=== PATIENT | male | born 1985 | race Caucasian/White ===

== ENCOUNTER 2019-02-13 16:45 | Emergency (ER) | payer MEDICAID ==
[~2019-02-13] VITALS: Ht 177.8 cm; Wt 90.7 kg
[~2019-02-13 16:45] MED LIST: ACHD5005 PO; AGM875T PO; AMOX-358 PO; AMOX500C2 PO; AZIT250T12 PO; CARB300C2; DEPAKOTE; FLUT9.9S NS; HALDOL; HYDR-4226 PO; HYDR-707 PO; IBUP800T26 PO; LITH300C; LOXA10CA PO; LOXA25CA2 PO; METF500T8 PO; NAPR-243 PO; PARO20TA57; QUET150T; SIMV10TA3 PO; [UNRECOGNIZED DRUG - REMARK]; [UNRECOGNIZED DRUG - REMARK]
--- NOTE | 2019-02-13 16:45 | NUR ---
AMB TO ROOM ACCOMPIED BY EMS AND PPD. PLACED IN ROOM 8 PLACED IN GOWN AND BELONGINGS PLACED IN BAG AND BEHINDE LOCKED DOOR.
--- NOTE | 2019-02-13 16:54 | ED General ---
General Stated Complaint: SUICIDAL Source of Information: Patient Exam Limitations: No Limitations History of Present Illness Date Seen by Provider: Feb 13, 2019 Time Seen by Provider: 16:51 Initial Comments To ER by EMS from home with reports of suicidal ideation. Patient states that over the past few months he's been pushing away the one person who means the world to him. Last night he pushed it too far he states and hurt her emotionally. He states he thought he should remedy this by taking himself out of the equation. He states he had just refilled all of his medications and planned that he would take all of them at once. However his stepdaughter walked into the room before he did that and call the police. He states he did not take any extra medications. He has been inpatient for suicidal ideations and attempt in the past. Reports a past psychiatric history of depression and anxiety bipolar dissociative identity disorder and paranoid schizophrenia. He states he feels like he needs to go inpatient because outpatient therapy is not working. Timing/Duration: 1-2 Days Severity: Moderate Allergies and Home Medications Allergies Coded Allergies: No Known Drug Allergies (Unverified , 12/19/08) Home Medications Metformin HCl 500 Mg Tab.er.24h, 500 MG PO BID, (Reported) Simvastatin 10 Mg Tablet, 10 MG PO HS, (Reported) Patient Home Medication List Home Medication List Reviewed: Yes Review of Systems Review of Systems Constitutional: see HPI EENTM: see HPI Respiratory: no symptoms reported Cardiovascular: no symptoms reported Genitourinary: no symptoms reported Musculoskeletal: no symptoms reported Skin: no symptoms reported Psychiatric/Neurological: See HPI, Depressed, Emotional Problems Hematologic/Lymphatic: No Symptoms Reported Immunological/Allergic: no symptoms reported Past Vnfkvfw-Xfhhsp-Ziolgw Hx Patient Social History Recent Foreign Travel: No Contact w/Someone Who Travel: No Recent Hopitalizations: No Seasonal Allergies Seasonal Allergies: No Past Medical History Appendectomy, Orthopedic Asthma Currently Using CPAP: No Currently Using BIPAP: No Stroke Reproductive Disorders: No Bipolar, Personality Disorder, Schizophrenia Adverse Reaction/Blood Tranf: No Physical Exam Vital Signs Vital Signs - First Documented 02/13/19 16:45 Temp 97.6 Pulse 84 Resp 16 B/P (MAP) 136/89 (105) Pulse Ox 95 O2 Delivery Room Air Capillary Refill : Height, Weight, BMI Height: 5'10" Weight: 332lbs. oz. [id number]; BMI Method:Stated General Appearance: No Apparent Distress, WD/WN, Other (clean, cooperative, alert. Pleasant) HEENT: PERRL/EOMI, TMs Normal, Normal ENT Inspection, Pharynx Normal Respiratory: Normal Breath Sounds, No Accessory Muscle Use, No Respiratory Distress Gastrointestinal: Normal Bowel Sounds, Non Tender, Soft Extremity: Normal Capillary Refill, Normal Inspection Neurologic/Psychiatric: Alert, Oriented x3, No Motor/Sensory Deficits Skin: Normal Color, Warm/Dry Progress/Results/Core Measures Suspected Sepsis SIRS Temperature: Pulse: Respiratory Rate: Laboratory Tests 02/13/19 17:34: White Blood Count 10.6 Blood Pressure / Mean: Laboratory Tests 02/13/19 17:34: Creatinine 0.98, Platelet Count 191, Total Bilirubin 0.5 Results/Orders Lab Results Laboratory Tests Test 02/13/19 17:19 02/13/19 17:34 Range/Units Urine Color YELLOW Urine Clarity CLEAR Urine pH 5 5-9 Urine Specific [place] 1.030 H 1.016-1.022 Urine Protein 2+ H NEGATIVE Urine Glucose (UA) NEGATIVE NEGATIVE Urine Ketones 1+ H NEGATIVE Urine Nitrite NEGATIVE NEGATIVE Urine Bilirubin 1+ H NEGATIVE Urine Urobilinogen 1 NORMAL MG/DL Urine Leukocyte Esterase 1+ H NEGATIVE Urine RBC (Auto) NEGATIVE NEGATIVE Urine RBC NONE /HPF Urine WBC RARE /HPF Urine Squamous Epithelial Cells RARE /HPF Urine Crystals PRESENT H /LPF Urine Calcium Oxalate Crystals FEW H /LPF Urine Bacteria TRACE /HPF Urine Casts NONE /LPF Urine Mucus MODERATE H /LPF Urine Culture Indicated NO Urine Opiates Screen NEGATIVE NEGATIVE Urine Oxycodone Screen NEGATIVE NEGATIVE Urine Methadone Screen NEGATIVE NEGATIVE Urine Propoxyphene Screen NEGATIVE NEGATIVE Urine Barbiturates Screen NEGATIVE NEGATIVE Ur Tricyclic Antidepressants Screen NEGATIVE NEGATIVE Urine Phencyclidine Screen NEGATIVE NEGATIVE Urine Amphetamines Screen NEGATIVE NEGATIVE Urine Methamphetamines Screen NEGATIVE NEGATIVE Urine Benzodiazepines Screen NEGATIVE NEGATIVE Urine Cocaine Screen NEGATIVE NEGATIVE Urine Cannabinoids Screen POSITIVE H NEGATIVE White Blood Count 10.6 4.3-11.0 10^3/uL Red Blood Count 5.05 4.35-5.85 10^6/uL Hemoglobin 15.3 13.3-17.7 G/DL Hematocrit 43 40-54 % Mean Corpuscular Volume 85 80-99 FL Mean Corpuscular Hemoglobin 30 25-34 PG Mean Corpuscular Hemoglobin Concent 36 32-36 G/DL Red Cell Distribution Width 14.0 10.0-14.5 % Platelet Count 191 130-400 10^3/uL Mean Platelet Volume 10.0 7.4-10.4 FL Neutrophils (%) (Auto) 70 42-75 % Lymphocytes (%) (Auto) 23 12-44 % Monocytes (%) (Auto) 6 0-12 % Eosinophils (%) (Auto) 1 0-10 % Basophils (%) (Auto) 1 0-10 % Neutrophils # (Auto) 7.5 1.8-7.8 X 10^3 Lymphocytes # (Auto) 2.5 1.0-4.0 X 10^3 Monocytes # (Auto) 0.6 0.0-1.0 X 10^3 Eosinophils # (Auto) 0.1 0.0-0.3 10^3/uL Basophils # (Auto) 0.1 0.0-0.1 10^3/uL Sodium Level 142 135-145 MMOL/L Potassium Level 3.6 3.6-5.0 MMOL/L Chloride Level 112 H 98-107 MMOL/L Carbon Dioxide Level 20 L 21-32 MMOL/L Anion Gap 10 5-14 MMOL/L Blood Urea Nitrogen 14 7-18 MG/DL Creatinine 0.98 0.60-1.30 MG/DL Estimat Glomerular Filtration Rate > 60 BUN/Creatinine Ratio 14 Glucose Level 106 H 70-105 MG/DL Calcium Level 9.4 8.5-10.1 MG/DL Corrected Calcium 9.0 8.5-10.1 MG/DL Total Bilirubin 0.5 0.1-1.0 MG/DL Aspartate Amino Transf (AST/SGOT) 33 5-34 U/L Alanine Aminotransferase (ALT/SGPT) 60 H 0-55 U/L Alkaline Phosphatase 49 40-136 U/L Total Protein 7.1 6.4-8.2 GM/DL Albumin 4.5 3.2-4.5 GM/DL Salicylates Level < 5.0 L 5.0-20.0 MG/DL Acetaminophen Level < 10 L 10-30 UG/ML Serum Alcohol < 10 <10 MG/DL My Orders Orders - JAEL RICE CHANNEL MANAGER Cbc With Automated Diff (02/13/19 16:49) Comprehensive Metabolic Panel (02/13/19 16:49) Alcohol (02/13/19 16:49) Salicylate (02/13/19 16:49) Acetaminophen (02/13/19 16:49) Ekg Tracing (02/13/19 16:49) Ua Culture If Indicated (02/13/19 16:49) Drug Screen Stat (Urine) (02/13/19 16:49) Vital Signs/I&O 02/13/19 16:45 Temp 97.6 Pulse 84 Resp 16 B/P (MAP) 136/89 (105) Pulse Ox 95 O2 Delivery Room Air Capillary Refill : Departure Communication (Admissions) 1854-patient states that he does not want to go any further than [facility]. Unfortunately neither [facility] for [facility] has any beds. Patient states that he would prefer to go on home if that's about it, he would give his medications to his fikim and he states "I wouldn't do anything violent " 2039-patient states he would like to go home. He states "it was just a lapse in judgment, I let my disability get the best of me". Ted is here, I discussed with her and she does feel comfortable allowing Drew to go home, she'll keep a close eye on him, return to ER for any concerns. He has an appointment with his counselor on Friday. Impression Primary Impression: Depression Qualified Codes: F32.2 - Major depressive disorder, single episode, severe without psychotic features Disposition: 01 HOME, SELF-CARE Condition: Stable Departure-Patient Inst. Decision time for Depature: 19:49 [place]: [facility] [place] Primary Care Physician Patient Instructions: Depression JAEL RICE APRN Feb 13, 2019 16:54
[2019-02-13] MEDS ORDERED: VILA10TA (17:10)
[2019-02-13] MEDS ORDERED: MELO15TA39 (17:10)
[2019-02-13] MEDS ORDERED: ALBU6.7H8 (17:10)
[2019-02-13] MEDS ORDERED: VILA20TA (17:10)
[2019-02-13] MEDS ORDERED: SIMV20TA3 (17:10)
[2019-02-13] MEDS ORDERED: LURA120T (17:10)
[2019-02-13] MEDS ORDERED: LATUDA (17:10)
[2019-02-13] MEDS ORDERED: LOXA10CA (17:10)
[2019-02-13] MEDS ORDERED: LOXA5CAP (17:10)
[2019-02-13] MEDS ORDERED: TOPI50TA13 (17:10)
[2019-02-13 17:26] LABS: CLARITY,URINE CLEAR; COLOR,URINE YELLOW; GLUCOSE, URINE (UA) NEGATIVE (NEGATIVE); KETONES,URINE 1+ (NEGATIVE); LEUKOCYTE ESTERASE ,URINE 1+ (NEGATIVE); NITRITE,URINE NEGATIVE (NEGATIVE); PH,URINE 5 (5-9); PROTEIN,URINE 2+ (NEGATIVE); UROBILINOGEN,URINE 1 MG/DL (NORMAL)
[2019-02-13 17:32] LABS: BILIRUBIN,URINE 1+ (NEGATIVE)
[2019-02-13 17:34] LABS: BACTERIA,URINE TRACE /HPF; CALCIUM OXALATE CRYSTALS,UR FEW /LPF; SQUAMOUS EPITHELIAL CELL,UR RARE /HPF; WBC,URINE RARE /HPF
--- NOTE | 2019-02-13 17:38 | NUR ---
LAB HERE TO DRAW BLOOD.
[2019-02-13 17:41] LABS: BASOPHILS # (AUTO) 0.1 10^3/uL (0.0-0.1); BASOPHILS % (AUTO) 1 % (0-10); EOSINOPHILS # (AUTO) 0.1 10^3/uL (0.0-0.3); EOSINOPHILS % (AUTO) 1 % (0-10); HEMATOCRIT 43 % (40-54); HEMOGLOBIN 15.3 G/DL (13.3-17.7); LYMPHOCYTES # (AUTO) 2.5 X 10^3 (1.0-4.0); LYMPHOCYTES % (AUTO) 23 % (12-44); MEAN CORPUSCULAR HEMOGLOBIN 30 PG (25-34); MEAN CORPUSCULAR HGB CONC 36 G/DL (32-36); MEAN CORPUSCULAR VOLUME 85 FL (80-99); MONOCYTES # (AUTO) 0.6 X 10^3 (0.0-1.0); MONOCYTES % (AUTO) 6 % (0-12); NEUTROPHILS # (AUTO) 7.5 X 10^3 (1.8-7.8); NEUTROPHILS % (AUTO) 70 % (42-75); PLATELET COUNT 191 10^3/uL (130-400); WHITE BLOOD COUNT 10.6 10^3/uL (4.3-11.0)
[2019-02-13 17:45] LABS: AMPHETAMINE SCREEN, URINE NEGATIVE (NEGATIVE); BARBITURATE SCREEN URINE NEGATIVE (NEGATIVE); BENZODIAZEPINES SCREEN URINE NEGATIVE (NEGATIVE); CANNABINOID SCREEN, URINE POSITIVE (NEGATIVE); COCAINE SCREEN URINE NEGATIVE (NEGATIVE); METHADONE STAT NEGATIVE (NEGATIVE); METHAMPHETAMINE SCREEN URINE S NEGATIVE (NEGATIVE); OPIATE SCREEN URINE NEGATIVE (NEGATIVE); OXYCODONE STAT NEGATIVE (NEGATIVE); PROPOXYPHENE STAT NEGATIVE (NEGATIVE); TRICYCLIC ANTIDEPRESSANTS SCRE NEGATIVE (NEGATIVE)
--- NOTE | 2019-02-13 18:00 | NUR ---
REMAINS IN ROOM NO NEW C/O DOOR REMAINS OPEN
[2019-02-13 18:03] LABS: ACETAMINOPHEN < 10 UG/ML (10-30); ALANINE AMINOTRANSFERASE 60 U/L (0-55); ALBUMIN 4.5 GM/DL (3.2-4.5); ALKALINE PHOSPHATASE 49 U/L (40-136); BILIRUBIN,TOTAL 0.5 MG/DL (0.1-1.0); BUN/CREATININE RATIO 14; CALCIUM 9.4 MG/DL (8.5-10.1); CARBON DIOXIDE 20 MMOL/L (21-32); CHLORIDE 112 MMOL/L (98-107); CREATININE SERUM 0.98 MG/DL (0.60-1.30); GFR ESTIMATED > 60; GLUCOSE 106 MG/DL (70-105); POTASSIUM 3.6 MMOL/L (3.6-5.0); SALICYLATE < 5.0 MG/DL (5.0-20.0); SODIUM 142 MMOL/L (135-145); TOTAL PROTEIN 7.1 GM/DL (6.4-8.2)
--- NOTE | 2019-02-13 18:46 | NUR ---
REPORT TO LANE AND CARE OF PATIENT.
--- NOTE | 2019-02-13 18:52 | NUR ---
Arlette RICE INVESTMENT SPECIALIST TO ROOM TO TALK WITH PATIENT . GAVE CELL PHONE TO PATIENT.
[2019-02-13 20:45] VITALS: BP 132/94
== END 2019-02-13 20:44 | disposition home or self-care (01) ==
LOC: EDUNIT# 16:45 → ER 16:46
DX: F32.9 Major depressive disorder, single episode, unspecified (principal); F41.9 Anxiety disorder, unspecified; F20.0 Paranoid schizophrenia; J45.909 Unspecified asthma, uncomplicated; F60.9 Personality disorder, unspecified; Z90.49 Acquired absence of other specified parts of digestive tract; Z86.73 Personal history of transient ischemic attack (TIA), and cerebral infarction without residual deficits; Z79.84 Long term (current) use of oral hypoglycemic drugs
CPT/HCPCS: 36415; 80053; 80306; 80320; 80329; 81000; 85025; 93005

== ENCOUNTER 2019-07-31 12:28 | Emergency (ER) | payer MEDICAID ==
[~2019-07-31] VITALS: Ht 177 cm; Wt 99.6 kg
[~2019-07-31 12:28] MED LIST changes: +ALBU6.7H8; +LATUDA; +LOXA10CA; +LOXA5CAP; +LURA120T; +MELO15TA39; +SIMV20TA3; +TOPI50TA13; +VILA10TA; +VILA20TA
[2019-07-31] MEDS ORDERED: NS IV 1000 ML 1,000 ML IV SCH (14:15)
--- NOTE | 2019-07-31 14:21 | ED General ---
General Chief Complaint: Dizziness/Syncope Stated Complaint: LIGHT HEADED / DIZZY Nursing Triage Note: Patient ambulatory to triage room without difficulty. Patient states he went to [facility] clinic today and was sent to ER. He is complaining of feeling lightheaded x 3 months with standing but it has gotten worse over the last 2 weeks. He states he has had some episodes of syncope. He did have vomiting, diarrhea and cold sweats this morning. He states his chest hurts when he takes a deep breath. Nursing Sepsis Screen: No Definite Risk Source of Information: Patient Exam Limitations: No Limitations History of Present Illness Date Seen by Provider: Jul 31, 2019 Time Seen by Provider: 14:20 Initial Comments 3 month history of dizziness and lightheaded upon standing. He has some pain with deep breathing throughout his entire chest and tingling in his hands when he takes a deep breath. He did have some nausea vomiting diarrhea for the past 2 days which seems to have exacerbated his symptoms. He went to [facility] [place] who referred him to the emergency room Timing/Duration: Other Severity: Moderate Associated Systoms: No Headaches; Nausea/Vomiting Allergies and Home Medications Allergies Coded Allergies: No Known Drug Allergies (Unverified , 12/19/08) Home Medications Metformin HCl 500 Mg Tab.er.24h, 500 MG PO BID, (Reported) Simvastatin 10 Mg Tablet, 10 MG PO HS, (Reported) Patient Home Medication List Home Medication List Reviewed: Yes Review of Systems Review of Systems Constitutional: see HPI EENTM: see HPI Respiratory: no symptoms reported Cardiovascular: no symptoms reported Genitourinary: no symptoms reported Musculoskeletal: no symptoms reported Skin: no symptoms reported Psychiatric/Neurological: No Symptoms Reported Hematologic/Lymphatic: No Symptoms Reported Immunological/Allergic: no symptoms reported Past Fdievwe-Hgueqd-Pzhqct Hx Patient Social History Alcohol Use: Denies Use Recreational Drug Use: Yes (marijuana, CBD oil ) Smoking Status: Current Someday Smoker Type Used: Electronic/Vapor Recent Foreign Travel: No Contact w/Someone Who Travel: No Recent Infectious Disease Expo: No Recent Hopitalizations: No Physical Abuse: No Sexual Abuse: No Mistreated: No Fear: No Seasonal Allergies Seasonal Allergies: No Past Medical History Surgeries: Yes (appendectomy) Appendectomy, Orthopedic Respiratory: Yes ( CHILD) Asthma Currently Using CPAP: No Currently Using BIPAP: No Cardiac: No Neurological: Yes (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 oz. [id number]; 31.00 BMI Method:Estimated General Appearance: No Apparent Distress, WD/WN Eyes: Bilateral Eye Normal Inspection, Bilateral Eye PERRL, Bilateral Eye EOMI HEENT: PERRL/EOMI, TMs Normal Neck: Full Range of Motion, Normal Inspection Respiratory: Lungs Clear, Normal Breath Sounds, No Accessory Muscle Use, No Respiratory Distress Gastrointestinal: Non Tender, Soft Extremity: Normal Capillary Refill, Normal Inspection Neurologic/Psychiatric: Alert, Oriented x3 Skin: Normal Color, Warm/Dry Progress/Results/Core Measures Suspected Sepsis Recent Fever Within 48 Hours: No Infection Criteria Present: None New/Unexplained Altered Menta: No Sepsis Screen: No Definite Risk SIRS Temperature: Pulse: 97 Respiratory Rate: 16 Laboratory Tests 07/31/19 14:15: White Blood Count 10.5 Blood Pressure 125 /84 Mean: 98 Laboratory Tests 07/31/19 14:15: Creatinine 1.13, Platelet Count 194, Total Bilirubin 0.9 Results/Orders Lab Results Laboratory Tests Test 07/31/19 14:15 Range/Units White Blood Count 10.5 4.3-11.0 10^3/uL Red Blood Count 5.52 4.35-5.85 10^6/uL Hemoglobin 16.4 13.3-17.7 G/DL Hematocrit 45 40-54 % Mean Corpuscular Volume 82 80-99 FL Mean Corpuscular Hemoglobin 30 25-34 PG Mean Corpuscular Hemoglobin Concent 36 32-36 G/DL Red Cell Distribution Width 13.7 10.0-14.5 % Platelet Count 194 130-400 10^3/uL Mean Platelet Volume 10.2 7.4-10.4 FL Neutrophils (%) (Auto) 79 H 42-75 % Lymphocytes (%) (Auto) 13 12-44 % Monocytes (%) (Auto) 8 0-12 % Eosinophils (%) (Auto) 0 0-10 % Basophils (%) (Auto) 0 0-10 % Neutrophils # (Auto) 8.3 H 1.8-7.8 X 10^3 Lymphocytes # (Auto) 1.4 1.0-4.0 X 10^3 Monocytes # (Auto) 0.8 0.0-1.0 X 10^3 Eosinophils # (Auto) 0.0 0.0-0.3 10^3/uL Basophils # (Auto) 0.0 0.0-0.1 10^3/uL D-Dimer < 0.27 0.00-0.49 UG/ML Sodium Level 138 135-145 MMOL/L Potassium Level 3.9 3.6-5.0 MMOL/L Chloride Level 105 98-107 MMOL/L Carbon Dioxide Level 21 21-32 MMOL/L Anion Gap 12 5-14 MMOL/L Blood Urea Nitrogen 17 7-18 MG/DL Creatinine 1.13 0.60-1.30 MG/DL Estimat Glomerular Filtration Rate > 60 BUN/Creatinine Ratio 15 Glucose Level 90 70-105 MG/DL Calcium Level 9.3 8.5-10.1 MG/DL Corrected Calcium 9.0 8.5-10.1 MG/DL Total Bilirubin 0.9 0.1-1.0 MG/DL Aspartate Amino Transf (AST/SGOT) 18 5-34 U/L Alanine Aminotransferase (ALT/SGPT) 37 0-55 U/L Alkaline Phosphatase 47 40-136 U/L Total Protein 7.4 6.4-8.2 GM/DL Albumin 4.4 3.2-4.5 GM/DL My Orders Orders - JAEL RICE ELECTRICAL TROUBLESHOOTER Cbc With Automated Diff (07/31/19 14:03) Fibrin Degradation Products (07/31/19 14:03) Comprehensive Metabolic Panel (07/31/19 14:03) Ed Iv/Invasive Line Start (07/31/19 14:03) Chest 1 View, Ap/Pa Only (07/31/19 14:03) Ns Iv 1000 Ml (Sodium Chloride 0.9%) (07/31/19 14:15) Ct Head Wo (07/31/19 14:19) Vital Signs/I&O 07/31/19 13:23 Temp 37.3 Pulse 97 Resp 16 B/P (MAP) 125/84 (98) Pulse Ox 98 O2 Delivery Room Air Capillary Refill : Less Than 3 Seconds Blood Pressure Mean: 98 Departure Impression Primary Impression: General medical exam Disposition: HOME, SELF-CARE Condition: Improved Departure-Patient Inst. Decision time for Depature: 15:10 Referrals: [facility] (PCP/Family) Primary Care Physician Patient Instructions: Orthostatic Hypotension (DC) Add. Discharge Instructions: Rate follow-up with one of the cardiologists listed 2. Return to ER for any concerns 3. All discharge instructions reviewed with patient and/or family. Voiced understanding. JAEL RICE APRN Jul 31, 2019 14:21
--- NOTE | 2019-07-31 14:24 | Diagnostic Imaging Report ---
INDICATION: Lightheadedness. TIME OF EXAM: 2:13 PM Correlation is made with prior chest 04/25/2016. FINDINGS: The heart size is normal. The pulmonary vascularity is unremarkable. The lungs are clear. No infiltrate, effusion or pneumothorax is detected. IMPRESSION: No acute cardiopulmonary process is detected. Dictated by: Dictated on workstation # [id number]
[2019-07-31 14:31] LABS: BASOPHILS % (AUTO) 0 % (0-10); EOSINOPHILS % (AUTO) 0 % (0-10); HEMATOCRIT 45 % (40-54); HEMOGLOBIN 16.4 G/DL (13.3-17.7); LYMPHOCYTES # (AUTO) 1.4 X 10^3 (1.0-4.0); LYMPHOCYTES % (AUTO) 13 % (12-44); MEAN CORPUSCULAR HEMOGLOBIN 30 PG (25-34); MEAN CORPUSCULAR HGB CONC 36 G/DL (32-36); MEAN CORPUSCULAR VOLUME 82 FL (80-99); MEAN PLATELET VOLUME 10.2 FL (7.4-10.4); MONOCYTES # (AUTO) 0.8 X 10^3 (0.0-1.0); MONOCYTES % (AUTO) 8 % (0-12); NEUTROPHILS # (AUTO) 8.3 X 10^3 (1.8-7.8); NEUTROPHILS % (AUTO) 79 % (42-75); PLATELET COUNT 194 10^3/uL (130-400); RED CELL DISTRIBUTION WIDTH 13.7 % (10.0-14.5); WHITE BLOOD COUNT 10.5 10^3/uL (4.3-11.0)
--- NOTE | 2019-07-31 14:41 | Diagnostic Imaging Report ---
PROCEDURE: CT head without contrast. TECHNIQUE: Multiple contiguous axial images were obtained through the brain without the use of intravenous contrast. Auto Exposure Controls were utilized during the CT exam to meet ALARA standards for radiation dose reduction. INDICATION: Lightheaded for 3 months increasing over the last 2 weeks. CORRELATION is made with prior CT from 07/19/2009. The ventricles and sulci are within normal limits. No sulcal effacement or midline shift is detected. No acute intra-axial or extra-axial hemorrhage is detected. Cisterns are patent. The visualized paranasal sinuses are clear. IMPRESSION: No acute intracranial process is detected. Dictated by: Dictated on workstation # [id number]
[2019-07-31 14:51] LABS: ALANINE AMINOTRANSFERASE 37 U/L (0-55); ALBUMIN 4.4 GM/DL (3.2-4.5); ALKALINE PHOSPHATASE 47 U/L (40-136); BILIRUBIN,TOTAL 0.9 MG/DL (0.1-1.0); BUN/CREATININE RATIO 15; CALCIUM 9.3 MG/DL (8.5-10.1); CARBON DIOXIDE 21 MMOL/L (21-32); CHLORIDE 105 MMOL/L (98-107); CREATININE SERUM 1.13 MG/DL (0.60-1.30); GFR ESTIMATED > 60; GLUCOSE 90 MG/DL (70-105); POTASSIUM 3.9 MMOL/L (3.6-5.0); SODIUM 138 MMOL/L (135-145); TOTAL PROTEIN 7.4 GM/DL (6.4-8.2)
[2019-07-31 15:16] VITALS: BP 124/83
== END 2019-07-31 15:16 | disposition home or self-care (01) ==
LOC: EDUNIT# 12:28 → ER 12:29
DX: R42 Dizziness and giddiness (principal); R11.2 Nausea with vomiting, unspecified; J45.909 Unspecified asthma, uncomplicated; F41.9 Anxiety disorder, unspecified; F60.9 Personality disorder, unspecified; F20.9 Schizophrenia, unspecified; F31.9 Bipolar disorder, unspecified; F17.290 Nicotine dependence, other tobacco product, uncomplicated; Z90.49 Acquired absence of other specified parts of digestive tract; Z86.73 Personal history of transient ischemic attack (TIA), and cerebral infarction without residual deficits
CPT/HCPCS: 36415; 70450; 71045; 80053; 85025; 85379; 96360

== ENCOUNTER → 2019-08-23 | Outpatient (CLI) | payer MEDICAID ==
[~2019-08-23] MED LIST changes: +METF500T19 PO; -METF500T8 PO; +SIMV10TA26 PO; -SIMV10TA3 PO; +SIMV20TA26; -SIMV20TA3
[2019-08-25 10:15] VITALS: BP 132/84
--- NOTE | 2019-08-25 10:15 | Cardiology Stress Test Report ---
Stress Test Report Date of Procedure/Referring: Date of Procedure: Aug 23, 2019 PCP Zbigniew Yates MD Admitting Physician David Armendariz - [facility] Of Indications: CP Baseline Heart Rate: 63 Baseline Blood Pressure: Blood Pressure Systolic: 132 Blood Pressure Diastolic: 84 Baseline EKG: Baseline EKG: NSR Summary/Conclusion: Summary: In summary, the patient started exercising with a baseline heart rate, blood pressure and EKG mentioned above Patient was able to exercise for a total of 9:45 minutes on Daniel protocol, 11.3 METs Maximum heart rate 185 Maximum blood pressure 212/83 Stress EKG Minimal nondiagnostic changes Recovery EKG Return to baseline Conclusion: 1. Good exercise tolerance for a total of 9:45 minutes on Daniel protocol, 11.3 METs, achieving 100 percent of maximum expected heart rate 2. Minimal nondiagnostic EKG changes with exercise returned to baseline during recovery 3. Multiple PVCs noted during exercise around minutes 7 then it improved with continuous exercise 4. Severe hypertensive response to exercise, peak blood pressure 212/83 ZBIGNIEW YATES MD Aug 25, 2019 10:15
== END ==
LOC: CARD 10:24
PROVIDERS: ATTEND Internal Medicine Cardiovascular Disease
DX: I49.3 Ventricular premature depolarization (principal); I10 Essential (primary) hypertension; R07.89 Other chest pain
CPT/HCPCS: 93017

== ENCOUNTER → 2019-09-27 | Outpatient (CLI) | payer MEDICAID | LOC: CARD 14:42 | PROVIDERS: ATTEND Physician Assistant | DX: R07.9 Chest pain, unspecified (principal); R06.02 Shortness of breath; I10 Essential (primary) hypertension; R55 Syncope and collapse | CPT/HCPCS: 93306 ==

== ENCOUNTER 2019-11-27 06:30 | Emergency (ER) | payer MEDICAID ==
[~2019-11-27] VITALS: Ht 177 cm; Wt 103.0 kg
--- OUTSIDE RECORDS SUMMARY | 2019-11-27 06:39 | XMS REPORT ---
Author Author [employer]. Organization [employer]. 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 Name Role Phone PRIETO EMY Unavailable Unavailable GIOVANNY AMARO [facility] Unavailable TOO CAM Unavailable MONICA ALVARENGA Unavailable Unavailable ADIA PANCHAL Unavailable Unavailable BUTCH CAMPBELL Unavailable BUTCH CAMPBELL Unavailable BUTCH CAMPBELL Unavailable ADIA PANCHAL Unavailable ADIA PANCHAL Unavailable RICHELLE, DAWNY Unavailable RICHELLE, DAWNY Unavailable TARYN CERVANTES Unavailable RICHELLE, DAWNY Unavailable KAYLI TRACEY Unavailable RICHELLE, DAWNY Unavailable PRIETO, EMY Unavailable PRIETO, EMY Unavailable PRIETO, EMY Unavailable PRIETO, EMY Unavailable RICHELLE, DAWNY Unavailable RICHELLE, DAWNY Unavailable TARYN CERVANTES Unavailable PRIETO, EMY Unavailable RICHELLE, DAWNY Unavailable PRIETO, EMY Unavailable PRIETO, EMY Unavailable RICHELLE, DAWNY Unavailable RICHELLE, DAWNY Unavailable RICHELLE, DAWNY Unavailable RICHELLE, DAWNY Unavailable RICHELLE, DAWNY Unavailable MEY PRIETO Unavailable MARIA TERESA RAMAN Unavailable SUZETTE ARDON Unavailable YASMEEN GOMEZ Unavailable OZ PERKINS Unavailable VASU MARIAH Unavailable RICHELLE, DAWKATIE Unavailable Migration, Doctor Unavailable Unavailable Migration, Doctor Unavailable Unavailable OZ PERKINS Unavailable Unavailable Migration, Doctor Unavailable Unavailable Migration, Doctor Unavailable Unavailable JOSE BALES Unavailable SERGIO SUNG MD Unavailable Unavailable JAEL RICE APRN Unavailable Unavailable JOSE BALES Unavailable JOSE BALES Unavailable TARYN Wang Unavailable PALAK SPRAGUE MD Unavailable Unavailable JAEL RICE APRN Unavailable Unavailable Migration, Doctor Unavailable Unavailable ZBIGNIEW VILLEGAS MD Unavailable Unavailable Migration, Doctor Unavailable Unavailable KAVITHA LIU Unavailable Unavailab le Unavailable Unavailable Migration, Doctor Unavailable Unavailable Allergies Normalized Allergy Reported Date of Reaction(s) Care Provider Facility Allergy Type classification allergen Allergy Onset DA (2 Unclassified No Known Drug 12-19-2008 - no information SERGIO SUNG [facility] Via sources.) Allergies , [facility] (50251) Medications Medication Ingredient Drug Dose Dates Status Sig Sig Care Class(es) (Normalized) (Original) Provid er benzonatate benzonatate Non-narcoti 100 mg 05-08-20 Active no Tessalon no 100 mg oral Translation c 18 - information Perles 100 name capsule (1 s: [ Antitussive 10-10-20 MG Orally (no source.) Tessalon 18 Three times phone) Perles 100 a day 1 MG] capsule as needed 8h May, May, 5 days Active sildenafil sildenafil Phosphodies 25 mg 07-20-20 Active take 1-2 Viagra 25 MG no 25 mg oral Translation terase 5 18 tablets by Orally Once name tablet (2 s: [ Viagra Inhibitor mouth once a day prn (no sources.) 25 MG] daily as 1-2 tablet phone) needed as needed Jul, 10 days Active Problems Active Problems Problem Normalized Date of Normalized Normalized Provider Fac ility Classification Problem(s) Problem Problem Problem Sta tus Onset/Resoluti Duration on Residual Acquired Episodic Active JAEL RICE [facility] Via codes; absence of Sonya unclassified other Hospital - (4 sources.) specified [place] parts of () digestive tract Other upper Allergic Chronic Active [facility] ity respiratory rhinitis due [address] [facility] disease (20 to pollen of [place] sources.) Translations: [place] () [ - Seasonal allergic rhinitis due to pollen J30.1, - Seasonal allergic rhinitis due to pollen J30.1] Anxiety Anxiety Chronic Active JAEL RICE [facility] Via disorders (4 disorder, Sonya sources.) unspecified [facility] () Other Body mass Chronic Active DARRIN PEOPLES Communi ty nutritional; index 30+ - [address] [facility] endocrine; and obesity of [facility] metabolic Translations: [place] () disorders (9 [ Body mass sources.) index (BMI) of 32.0-32.9 in adult, Body mass index (BMI) of 32.0-32.9 in adult] Conditions Dizziness and Episodic Active JAEL RICE [facility] Via associated giddiness DIRECTOR OF ENTERPRISE APPLICATIONSAndrew Hasasn with dizziness Hospital - or vertigo (2 [place] sources.) (23532) Essential Essential 09-29-2019 - Chronic Active KAVITHA [facility] Via hypertension (primary) CHOW-ANDERSO Sonya (2 sources.) hypertension N , [place] [facility] () Nausea and Nausea with Episodic Active JAEL RICE [facility] V ia vomiting (1 vomiting, DIRECTOR [employer] ENTERPR[employer] APPLICATIONS Sonya source.) unspecified [facility] () Other Obesity Chronic Active DAWKATIE RICHELLE Communit y nutritional; Translations: [address] [facility] endocrine; and [ Other of [facility] metabolic obesity due to [place] () disorders (20 excess sources.) calories, Obesity, Other obesity due to excess calories, Obesity] Other Obesity, Chronic Active DAWKATIE RICHELLE Communit y nutritional; unspecified [address] [facility] endocrine; and Translations: of [facility] metabolic [ - Obesity [place] () disorders (20 E66.9, - sources.) Obesity E66.9] Residual Pain, Episodic Active Doctor Community codes; unspecified [facility] unclassified Translations: of [facility] (7 sources.) [ - Body aches [place] (60790) R52] Other Personal Episodic Active JAEL RICE [facility] Via circulatory history of Sonya disease (4 transient Hospital - sources.) ischemic [place] attack (TIA), (84384) and cerebral infarction without residual deficits Other lower Shortness of 09-29-2019 - Episodic Active KAVITHA [facility] Via respiratory breath CHOW-ANDERSO Sonya disease (2 N , [place] Hospital - sources.) [place] (20485) Residual Tobacco user Episodic Active Doctor Community codes; Translations: [facility] unclassified [ Tobacco of [facility] (3 sources.) abuse] [place] (54683) Intestinal Viral Episodic Active Doctor Community infection (3 intestinal [facility] sources.) infection, of [facility] unspecified [place] (43299) Translations: [ - Viral gastroenteriti s A08.4] Past or Other Problems Problem Normalized Date of Normalized Normalized Provider Fac ility Classification Problem(s) Problem Problem Problem Sta tus Onset/Resoluti Duration on Other roasterman no information no information JAEL KRYSTAL [facility] Via aftercare (1 (current) use Sonya source.) of oral Hospital - hypoglycemic [place] drugs (26145) Other roasterman Episodic Completed JAEL RICE [facility] Via aftercare (2 (current) use Sonya sources.) of oral Hospital - hypoglycemic [place] drugs (78922) Mood disorders Major no information no information JAEL JHONATAN KING [facility] Via (1 source.) depressive Sonya disorder, Hospital - single [place] episode, (52591) unspecified Other Pain in left Episodic Completed JAEL RICE [facility] Via connective forearm Sonya tissue disease Hospital - (1 source.) [place] (01450) Suicide and Suicidal Episodic Completed JAEL KRYSTAL [facility] Via intentional ideations Sonya self-inflicted Hospital - injury (3 [place] sources.) (88319) Procedures Procedure Normalized Procedure Procedure Result Performer Facility Date 12-17-2017 Collection venous no information no name (no phone) [facility] blood venipuncture [facility] (91375) 10-07-2018 Hemoglobin no information no name (no phone) [facility] glycosylated a1c [facility] (60033) 07-20-2018 Hemoglobin no information no name (no phone) Comm [facility] glycosylated a1c [facility] (17193) 03-24-2018 Hemoglobin no information no name (no phone) [facility] glycosylated a1c [facility] (33378) 04-02-2018 Intraoral periapical no information no name (no quintin ne) [facility] (39359) 10-07-2018 LAB NOT BILLED BY no information no name (no phone) [facility] (88265) 12-17-2017 LAB NOT BILLED BY no information no name (no phone) [facility] (75797) 05-08-2018 Radiologic exam chest no information no name (no ph one) [facility] 2 views [facility] (64322) 04-02-2018 Rem imp tooth w no information no name (no phone) [facility] mucoper flp [facility] (73621) 08-31-2018 Therapeutic px 1/> no information no name (no phone ) [facility] each 15 min [facility] (63092) Immunizations The data below is from unstructured sourcesNo immunization records.No immunization records.No immunization records. No Known Immunizations No Known ImmunizationsNo immunization records.No immunization records.No immunization records.No immunization records.No immunization records.No immunization records. No Known Immunizations No Known Immunizations No Known Immunizations No Known Immunizations No Known Immunizations No Known Immunizations No Known Immunizations No Known Immunizations No Known Immunizations No Known Immunizations No Known Immunizations No Known Immunizations No Known Immunizations No Known Immunizations No Known Immunizations No Known Immunizations No Known Immunizations No Known Immunizations No Known Immunizations No Known Immunizations No Known Immunizations No Known Immunizations No Known Immunizations No Known Immunizations No Known Immunizations No Known Immunizations No Known Immunizations No Known Immunizations No Known Immunizations No Known Immunizations No Known Immunizations No Known Immunizations No Known Immunizations No Known Immunizations No Known Immunizations No Known Immunizations No Known Immunizations No Known Immunizations No Known Immunizations No Known Immunizations No Known Immunizations No Known Immunizations No Known Immunizations No Known Immunizations No Known Immunizations No Known Immunizations No Known Immunizations No Known Immunizations No Known Immunizations No Known Immunizations No Known Immunizations No Known Immunizations No Known Immunizations No Known Immunizations No Known Immunizations No Known Immunizations No Known Immunizations No Known Immunizations No Known Immunizations No Known Immunizations No Known Immunizations No Known Immunizations No Known Immunizations No Known Immunizations No Known Immunizations No Known Immunizations No Known Immunizations No Known Immunizations No Known Immunizations No Known Immunizations No Known Immunizations No Known Immunizations No Known Immunizations No Known Immunizations No Known Immunizations No Known Immunizations No Known Immunizations No Known Immunizations No Known Immunizations No Known Immunizations No Known Immunizations No Known Immunizations Results Test Name Value Interpretation Reference Range Date Time Fa cility (Normalized) (Normalized) (Medline Reference) xray : chest 2 view (in house) on null NEGATED: no information (no code) [facility] studies (set) (83423) a1c (in house) on null Hemoglobin 4.8 % (no code) 0 - 5.7 % [facility] A1c/Hemoglobin.t [facility] fraction (Bld) (91785) Hemoglobin 4.7 % (no code) 0 - 5.7 % [facility] A1c/Hemoglobin.t [facility] fraction (Bld) (12880) A1C (IN HOUSE) 0856 (no code) [facility] (41798) A1C (IN HOUSE) 10/2019 (no code) [facility] (15923) A1C (IN HOUSE) 0941 (no code) [facility] (03240) A1C (IN HOUSE) 05/2020 (no code) [facility] (08446) No panel information on 2019-10-12 Control no information (no code) [facility] (84478) Exp date 07/05/2021 (no code) [facility] (70383) Lot # [id number] (no code) [facility] (50280) No panel information on 2019-07-31 Control no information (no code) [facility] (32565) Exp date 06/18/2021 (no code) [facility] (75876) Lot # [id number] (no code) [facility] (60971) No panel information on 2019-01-15 Calcium 9.5 mg/dL (N) 8.5 - 10.2 mg/dL Critical access hospital [Mass/Vol] [facility] (43876) Chloride 108 mmol/L (N) 95 - 106 mmol/L [facility] [Moles/Vol] [facility] (90133) CO2 [Moles/Vol] 28 mmol/L (N) 23 - 29 mmol/L [facility] (82711) Creatinine 1.11 mg/dL (N) [facility] [Mass/Vol] [facility] (70142) GFR/1.73 sq M 100 (N) 90 - 120 [facility] predicted among mL/min/{1.73_m2} mL/min/{1.73_m2} [facility] blacks MDRD [facility] (S/P/Bld) [Vol (67947) rate/Area] GFR/1.73 sq 86 (N) 90 - 120 [facility].predicted MDRD mL/min/{1.73_m2} mL/min/{1.73_m2} [facility] (S/P/Bld) [Vol [facility] rate/Area] (43512) Glucose 90 mg/dL (N) 60 - 125 mg/dL [facility] [Mass/Vol] [facility] (68941) Potassium 4.0 mmol/L (N) 3.7 - 5.2 mmol/L Critical access hospital [Moles/Vol] [facility] (31613) Sodium 142 mmol/L (N) 135 - 145 mmol/L [facility] [Moles/Vol] [facility] (39287) Urea nitrogen 16 mg/dL (N) 7 - 20 mg/dL [facility] [Mass/Vol] [facility] (01789) Urea NOT APPLICABLE (no code) [facility] nitrogen/Creatin [facility] ine [Mass ratio] [facility] (80604) No panel information on 2018-10-07 Albumin 4.5 g/dL (N) 3.4 - 5.4 g/dL [facility] [Mass/Vol] [facility] (48967) Albumin/Globulin 2.0 {ratio} (N) 1 - 2.5 {ratio} Comm [facility] [Mass ratio] [facility] (73659) ALP [Catalytic 49 U/L (N) 44 - 147 U/L [facility] activity/Vol] [facility] (78586) ALT [Catalytic 34 U/L (N) 4 - 40 U/L Community ealth activity/Vol] [facility] (46670) AST [Catalytic 20 U/L (N) 10 - 34 U/L [facility] activity/Vol] [facility] () Basophils (Bld) 0.069 10*3/uL (N) 0 - 0.3 10*3/uL [facility] Health [#/Vol] [facility] (27542) Basophils/100 0.8 % (N) 0.5 - 1 % Community [facility] WBC (Bld) [facility] (39756) Bilirubin 0.6 mg/dL (N) 0.1 - 1.2 mg/dL [facility] [Mass/Vol] [facility] (81037) Calcium 9.4 mg/dL (N) 8.5 - 10.2 mg/dL [facility] [Mass/Vol] [facility] (34966) Chloride 108 mmol/L (N) 95 - 106 mmol/L [facility] [Moles/Vol] [facility] (02731) Cholesterol 123 mg/dL (N) 180 - 200 mg/dL [facility] [Mass/Vol] [facility] (66928) Cholesterol in 26 mg/dL (L) [facility] HDL [Mass/Vol] [facility] (05208) Cholesterol in 70 mg/dL (N) 0 - 100 mg/dL [facility] LDL [Mass/Vol] [facility] (61480) Cholesterol non 97 mg/dL (N) [facility] HDL [Mass/Vol] [facility] (52323) Cholesterol.tota 4.7 {ratio} (N) [facility] lt l/Cholesterol in [facility] HDL [Mass ratio] [facility] (24436) CO2 [Moles/Vol] 27 mmol/L (N) 23 - 29 mmol/L [facility] (31888) Creatinine 1.09 mg/dL (N) [facility] [Mass/Vol] [facility] (07683) Eosinophils 0.077 10*3/uL (N) 0.05 - 0.5 [facility] (Bld) [#/Vol] 10*3/uL [facility] (62739) Eosinophils/100 0.9 % (N) 1 - 4 % [facility] WBC (Bld) [facility] (76599) Erythrocyte 13.1 % (N) 11.6 - 14.6 % [facility] ealth distribution [facility] width (RBC) [facility] [Ratio] (23586) GFR/1.73 sq M 102 (N) 90 - 120 [facility] predicted among mL/min/{1.73_m2} mL/min/{1.73_m2} [facility] blacks MDRD [facility] (S/P/Bld) [Vol (70481) rate/Area] GFR/1.73 sq 88 (N) 90 - 120 [facility] M.predicted MDRD mL/min/{1.73_m2} mL/min/{1.73_m2} [facility] (S/P/Bld) [Vol [facility] rate/Area] (63804) Globulin (S) 2.2 g/dL (N) 2 - 3.5 g/dL [facility] ealt [Mass/Vol] [facility] (46738) Glucose 94 mg/dL (N) 60 - 125 mg/dL [facility] [Mass/Vol] [facility] (40758) HbA1c (Bld) 4.5 (N) [facility] [Mass fraction] [facility] (40256) Hematocrit (Bld) 44.7 % (N) 36.1 - 50.3 % [facility] [Volume [facility] fraction] [facility] (10247) Hemoglobin (Bld) 15.6 g/dL (N) 12.1 - 17.2 g/dL [facility] [Mass/Vol] [facility] (23037) Lymphocytes 3.234 10*3/uL (N) 0.9 - 2.9 Community [facility] (Bld) [#/Vol] 10*3/uL [facility] (16199) Lymphocytes/100 37.6 % (N) 20 - 40 % [facility] WBC (Bld) [facility] (13519) MCH (RBC) 30.6 pg (N) 27 - 31 pg [facility] [Entitic mass] [facility] (69686) MCHC (RBC) 34.9 g/dL (N) 32 - 36 g/dL [facility] [Mass/Vol] [facility] (83128) MCV (RBC) 87.8 fL (N) 80 - 100 fL [facility] [Entitic vol] [facility] (75513) Monocytes (Bld) 0.49 10*3/uL (N) 0.3 - 0.9 [facility] [#/Vol] 10*3/uL [facility] (30863) Monocytes/100 5.7 % (N) 2 - 8 % [facility] WBC (Bld) [facility] (56297) Neutrophils 4.73 10*3/uL (N) 1.7 - 7 10*3/uL [facility] (Bld) [#/Vol] [facility] (47287) Neutrophils/100 55 % (N) 40 - 60 % [facility] WBC (Bld) [facility] (97208) Platelet mean 10.0 fL (N) 7.2 - 11.7 fL [facility] volume (Bld) [facility] [Entitic vol] [facility] (22616) Platelets (Bld) 238 10*3/uL (N) 150 - 450 [facility] [#/Vol] 10*3/uL [facility] (93606) Potassium 3.8 mmol/L (N) 3.7 - 5.2 mmol/L Critical access hospital [Moles/Vol] [facility] (45900) Protein 6.7 g/dL (N) 6.4 - 8.3 g/dL [facility] [Mass/Vol] [facility] (92549) RBC (Bld) 5.09 10*6/uL (N) 4.2 - 6.1 [facility] [#/Vol] 10*6/uL [facility] (36523) Sodium 142 mmol/L (N) 135 - 145 mmol/L Critical access hospital [Moles/Vol] [facility] (60961) Triglyceride 197 mg/dL (H) 0 - 150 mg/dL [facility] [Mass/Vol] [facility] (80910) TSH Qn 1.60 m[IU]/L (N) 0.4 - 4 m[IU]/L [facility] (60671) Urea nitrogen 14 mg/dL (N) 7 - 20 mg/dL [facility] [Mass/Vol] [facility] (23521) Urea NOT APPLICABLE (no code) [facility] nitrogen/Creatin [facility] (11533) WBC (Bld) 8.6 10*3/uL (N) 3.5 - 10.5 [facility] [#/Vol] 10*3/uL [facility] (50958) No panel information on 2018-07-20 Exp date 05/2020 (no code) [facility] (73410) Lot 4.7~4.8~0941 (no code) [facility] (13785) No panel information on 2018-03-24 Exp date 10/2019 (no code) [facility] (88679) Lot 4.8~4.6~0856 (no code) [facility] (89957) testosterone, total on 2017-12-17 Testosterone 348 ng/dL (no code) 12-17-2017 [facility] 13:00-0400 [facility] (46653) No panel information on 2017-10-07 Bacteria SEE NOTE (no code) [facility] identified [facility] (U) [facility] (75291) Exp date [id number] (no code) [facility] (94738) KET no information (no code) [facility] (05246) pH (Bld) 6.5 [pH] (no code) 7.38 - 7.42 [pH] [facility] (18399) Protein mass no information (no code) 0 - 20 mg/dL Replaced by [facility] (U) [facility] (01815) SG 1.020 (no code) [facility] (01755) URO 2.0 (no code) [facility] (48083) No panel information on 2017-08-25 Exp date 05/2019 (no code) [facility] (08202) Lot 4.6~4.6~0791 (no code) [facility] (93289) Vital Signs Vital Sign Value Interpretation Reference Date Time Care Prov ider Facility (Normalized) (Normalized) Range BMI (Body Mass 32.08 kg/m2 (no code) 15 - 25 kg/m2 10-07-2018 Angus PEOPLES Community Index) 13:00-0500 32364 [facility] (39383) BMI (Body Mass 32.09 kg/m2 (no code) 15 - 25 kg/m2 07-20-2018 TITUS WYMAN Community Index) 16:00-[id number] [place] [address] (74265) BMI (Body Mass 32.3 kg/m2 (no code) 15 - 25 kg/m2 05-08-2018 YANIRA MILAN Community Index) 13:30-[id number] [place] [address] (04660) BMI (Body Mass 31.62 kg/m2 (no code) 15 - 25 kg/m2 03-24-2018 Nichole PRIETO Community Index) 15:20-0400 30185 [facility] (43434) BMI (Body Mass 31.76 kg/m2 (no code) 15 - 25 kg/m2 03-18-2018 D [facility] Community Index) 14:40-0400 29824 [facility] (43950) BMI (Body Mass 32.01 kg/m2 (no code) 15 - 25 kg/m2 02-18-2018 D [facility] Community Index) 15:40-0400 65774 [facility] (34794) BMI (Body Mass 31.42 kg/m2 (no code) 15 - 25 kg/m2 01-21-2018 D [facility] Community Index) 11:20-0400 48782 [facility] (90693) BMI (Body Mass 32.28 kg/m2 (no code) 15 - 25 kg/m2 12-16-2017 M SELENE PRIETO Community Index) 16:00-0400 70101 [facility] (41490) BMI (Body Mass 32.28 kg/m2 (no code) 15 - 25 kg/m2 12-10-2017 D [facility] Community Index) 12:40-0400 85617 [facility] (06967) Body height 154.31 cm (no code) cm 12-20-2013 Doctor [facility]ity 15:54-0400 Migration [facility] (07595) Body 97.8 [degF] (no code) 97.8 - 99.0 07-20-2018 OZ Community Temperature [degF] 16:00-[address] [place] [address] er [facility] (40097) Body 97.4 [degF] (no code) 97.8 - 99.0 05-08-2018 SUZETTE MILAN Community Temperature [degF] 13:30-[address] [place] [address] nter [facility] (77133) Body 98 [degF] (no code) 97.8 - 99.0 03-24-2018 EMY [facility] Community Temperature [degF] 15:20-0400 56700 [facility] Cente r [facility] (11170) Body 97.1 [degF] (no code) 97.8 - 99.0 12-16-2017 EMY LEACH [facility] Temperature [degF] 16:00-0400 52896 [facility] (65705) Body 97.9 [degF] (no code) 97.8 - 99.0 12-20-2013 Doctor Community temperature [degF] 15:54-0400 [facility] (99906) Body weight 109.09 kg (no code) kg 10-07-2018 [facility] 13:00-0500 94298 [facility] (01997) Body weight 101.15 kg (no code) kg 01-31-2014 [facility] 13:31-0400 [facility] ([id number]) Body weight 100.88 kg (no code) kg 12-20-2013 [facility] 15:54-0400 [facility] ([id number]) Height 184.4 cm (no code) cm 10-07-2018 [facility] 13:00-0500 53681 [facility] (22119) Height 184.4 cm (no code) cm 07-20-2018 OZ Commu nity 16:00-0500 GREGORIO 98587 [facility] (85833) Height 184.4 cm (no code) cm 05-08-2018 SUZETTE MILAN Commu nity 13:30-0400 REVA 91958 [facility] (17553) Height 184.4 cm (no code) cm 04-02-2018 MARIA TERESA [facility] 10:00-0400 [facility] (58600) Height 184.4 cm (no code) cm 03-24-2018 EMY PRIETO C ommunity 15:20-0400 65479 [facility] (98488) Height 184.4 cm (no code) cm 03-18-2018 [facility] 14:40-0400 70602 [facility] (02547) Height 184.4 cm (no code) cm 02-18-2018 [facility] 15:40-0400 96791 [facility] (42604) Height 184.4 cm (no code) cm 01-21-2018 [facility] 11:200400 08562 [facility] (63427) Height 184.4 cm (no code) cm 12-16-2017 EMY PRIETO ommunity 16:00-0400 98530 [facility] (09179) Height 184.4 cm (no code) cm 12-10-2017 [facility] 12:40-0400 28022 [facility] (17532) Height 154.31 cm (no code) cm 01-31-2014 Doctor Sylvesteru nitbo 13:31-0400 Migration [facility] ([id number]) Pulse Oximetry 0 % (no code) 95 - 100 % 05-08-2018 SUZETTE Rizzo [facility] 13:30-[address] ([address]248) Weight 109.14 kg (no code) kg 07-20-2018 OZ Comm unity 16:000500 [address] ([address]34) Weight 109.86 kg (no code) kg 05-08-2018 SUZETTE MILAN Comm likely 13:300400 [address] (15026) Weight 107.55 kg (no code) kg 03-24-2018 EMY [facility] 15:200400 80984 [facility] (68361) Weight 108 kg (no code) kg 03-18-2018 [facility] 14:400400 [id number] [place] [address] (52481) Weight 108.86 kg (no code) kg 02-18-2018 [facility] 15:400400 [id number] [place] [address] (07038) Weight 106.87 kg (no code) kg 01-21-2018 [facility] 11:200400 [id number] [place] [address] (20559) Weight 109.77 kg (no code) kg 12-16-2017 EMY PRIETO [facility] 16:000400 [id number] [place] [address] (04355) Weight 109.77 kg (no code) kg 12-10-2017 [facility] 12:40-0400 68644 [facility] ([id number]) Interventions No Information Plan of Treatment Normalized Care Care Detail Care Activity Date Care Provider F acility Activity (IPT) Internal PCP [facility] 07-20-2018 YASMEEN PLUMMER [phone] [facility] Transfer [facility] ([id number]) (PSY-FU-20) [facility] 07-22-2018 [facility] [address] [facility] Psychiatry F/U 20 [facility] ([id number]) (PT-EVAL) Physical [facility] 06-01-2018 SUZETTE GROSSMAN [facility] Therapy Evaluation [facility] [address] [facility] (17584) (PT-EVAL) Physical [facility] 62 [facility] Evaluation [facility] ([id number]) (PT-F/U) Physical [facility] 08-12-2018 OZ PERKINS [facility] Therapy f/u [facility] [id number] [place] [address] ([address]) Goals No Information Social History The data below is from unstructured sources History Response Recorde d Date/Time Hx Family Cancer N mother pancreatic and breast, brother pancreatic, dad lung 12/20/08 1:34am Hx Family Breast Cancer Y mother 12/20/08 1:34am Hx Family Lung Cancer Y father 12/20/08 1:34am History Response Recorde d Date/Time Alcohol Use Denies Use 0 12/25/12 12:39pm Recreational Drug Use N 12/25/12 12:39pm History Response Recorde d Date/Time Alcohol Use Denies Use 0 01/01/13 2:17am Recreational Drug Use N 01/01/13 2:17am Functional Status The data below is from unstructured sourcesNo functional status results.No functional status results.No functional status results.No functional status results.No functional status results.No functional status results.No functional status results.No functional status results.No functional status results. Mental Status No Information Encounters Encounter Normalized Encounter Encounter Diagnosis Care Provi laura Organization Date Type 06-01-2018 (PT-EVAL) Physical no information MARIAH LEONE (n o [facility] Therapy Evaluation phone) (no phone) 10-12-2019 [facility] Pain, unspecified AISSATOU MORENO MAN [facility]) CARE (no phone) 07-31-2019 [facility] Pain, unspecified ABBY QUIÑONES (no [facility] - CARE phone) CARE (no phone) 07-31-2019 - 07-31-2019 06-02-2019 [facility] Borderline personality DARRIN PEOPLES (no [facility] - disorder phone) (no phone) 06-02-2019 - 06-02-2019 07-31-2019 Emergency department no information no name (no quintin ne) no organization name - patient visit (no phone) 07-31-2019 02-13-2019 Emergency department no information no name (no quintin ne) no organization name - patient visit (no phone) 02-13-2019 02-13-2019 Emergency department no information no name (no quintin ne) no organization name - patient visit (no phone) 02-13-2019 04-25-2016 Emergency department no information no name (no quintin ne) no organization name - patient visit (no phone) 04-25-2016 03-09-2016 Emergency department no information no name (no quintin ne) no organization name - patient visit (no phone) 03-09-2016 08-21-2015 Emergency department no information no name (no quintin ne) no organization name - patient visit (no phone) 08-21-2015 04-02-2018 Limit oral eval problm no information no name (no p jez) no organization name focus (no phone) 03-24-2018 Patient encounter no information no name (no phone) no organization name (no phone) 02-18-2018 Patient encounter no information no name (no phone) no organization name (no phone) 12-17-2017 Patient encounter no information no name (no phone) no organization name (no phone) 12-16-2017 Patient encounter no information no name (no phone) no organization name (no phone) 12-10-2017 Patient encounter no information no name (no phone) no organization name (no phone) 11-05-2017 Patient encounter no information no name (no phone) no organization name (no phone) 11-03-2017 Patient encounter no information no name (no phone) no organization name (no phone) 10-07-2017 Patient encounter no information no name (no phone) no organization name (no phone) 09-05-2017 Patient encounter no information no name (no phone) no organization name (no phone) 08-25-2017 Patient encounter no information no name (no phone) no organization name (no phone) 10-12-2019 Patient encounter no information OZ PERKINS (no [facility] procedure phone) (no phone) [facility] (no phone) 09-27-2019 Patient encounter no information KAVITHA FORD V [facility] procedure [facility] (no [facility] phone) (no phone) 08-23-2019 Patient encounter no information no name (no phone) no organization name procedure (no phone) 07-31-2019 Patient encounter no information no name (no phone) no organization name procedure (no phone) 06-02-2019 Patient encounter no information no name (no phone) no organization name procedure (no phone) 04-02-2019 Patient encounter no information no name (no phone) no organization name procedure (no phone) 03-02-2019 Patient encounter no information no name (no phone) no organization name procedure (no phone) 02-13-2019 Patient encounter no information no name (no phone) no organization name procedure (no phone) 02-12-2019 Patient encounter no information no name (no phone) no organization name procedure (no phone) 01-27-2019 Patient encounter no information no name (no phone) no organization name procedure (no phone) 01-25-2019 Patient encounter no information no name (no phone) no organization name procedure (no phone) 01-15-2019 Patient encounter no information no name (no phone) no organization name procedure (no phone) 01-13-2019 Patient encounter no information no name (no phone) no organization name procedure (no phone) 01-07-2019 Patient encounter no information no name (no phone) no organization name procedure (no phone) 12-09-2018 Patient encounter no information no name (no phone) no organization name procedure (no phone) 10-07-2018 Patient encounter no information no name (no phone) no organization name procedure (no phone) 08-31-2018 Patient encounter no information no name (no phone) no organization name procedure (no phone) 08-12-2018 Patient encounter no information no name (no phone) no organization name procedure (no phone) 07-20-2018 Patient encounter no information no name (no phone) no organization name procedure (no phone) 07-13-2018 Patient encounter no information no name (no phone) no organization name procedure (no phone) Medical Equipment No Information Payers The data below is from unstructured sources Payer Name Policy Number Subscriber Name Relationship [facility] [id number] Drew Hayes Ii 01 Self / Same As Patient Payer Name Policy Number Subscriber Name Relationship [facility] [id number] Drew Hayes Ii Self / Same As Patient History general Narrative - Reported Note Type Note Facility History general Narrative - Reported Type Medical Degenerative arthritis lumb ar spine History Medical Hx CVA History Medical Borderline personality diso rder History Medical Depression History Medical Asthma, unspecified asthma severity, unspecified whether complicated, History unspecified whether persist ent Surgical appendectomy 1992 History Surgical left arm fx repair History Surgical fractured collarbone History Hospitaliz Heart murmur when he was yo migdalia ation History Hospitaliz Stroke x 3 ation History [facility] ([id number]) Summary Purpose eClinicalWorks SubmissioneClinicalWorks SubmissioneClinicalWorks SubmissioneClinicalWorks Submission Advance Directives Directive Response Recor ded Date/Time Advance Directives No 9:27pm Organ Donor No 03/09/16 9:27pm Directive Response Recor ded Date/Time Advance Directives No 8:25pm Health Care Power of Manager Oracle Database No 04/25/16 8:25pm Organ Donor No 04/25/16 8:25pm Resuscitation Status Full Code 04/25/16 8:25pm Directive Response Recor ded Date/Time Advance Directives No 7:24pm Organ Donor No 08/21/15 7:24pm Resuscitation Status Full Code 08/21/15 7:24pm Directive Response Recor ded Date Advance Directives N 12:39pm Organ Donor N 12/25/12 1 2:39pm Directive Response Recor ded Date/Time Advance Directives No 12:47pm Organ Donor No 10/21/14 12:47pm Resuscitation Status Full Code 10/21/14 12:47pm Directive Response Recor ded Date Advance Directives N 2:17am Organ Donor N 01/01/13 2 :17am Discharge Instructions No hospital discharge instructions.No hospital discharge instructions.No hospital discharge instructions.No hospital discharge instructions.No hospital discharge instructions. Additional Source Comments This clinical document has been generated using [employer] software that has been certified by the Office of the National Coordinator for Health Information Technology (ONC 15.99.04.3023.Diam.31.00.0.831649) and the National Committee for Visiting Professor (NCQA, as an eMeasure certified technology). FOR RECORDS PERTAINING TO PATIENTS WHO ARE OR HAVE BEEN ENROLLED IN A CHEMICAL D EPENDENCY/SUBSTANCE ABUSE PROGRAM, SOME INFORMATION MAY BE OMITTED. This clinica l summary was aggregated from multiple sources. Caution should be exercised in using it in the provision of clinical care. This summary normalizes information from multiple sources, and as a consequence, information in this document may ma terially change the coding, format and clinical context of patient data. In phillip tion, data may be omitted in some cases. CLINICAL DECISIONS SHOULD BE BASED ON T HE PRIMARY CLINICAL RECORDS. [employer] provides no warranty or guara ntee of the accuracy or completeness of information in this document.The followi ng information is based on time limited clinical information UNRECOGNIZED CONTENT PROVIDED BELOW FOR UNRECOGNIZED SECTION MEDICAL (GENERAL) HISTORY Type Description Date Medical History Degenerative arthrit is lumbar spine Medical History Hx CVA Medical History Borderline personali ty disorder Medical History Depression Surgical History appendectomy 1992 Surgical History left arm fx repair Surgical History fractured collarbone Hospitalization History Heart murmur when he was young Hospitalization History Stroke x 3 Type Description Date Medical History Degenerative arthrit is lumbar spine Medical History Hx CVA Medical History Borderline personali ty disorder Medical History Depression Medical History Asthma, unspecified asthma severity, unspecified whether complicated, unspecified whether persistent Surgical History appendectomy 1992 Surgical History left arm fx repair Surgical History fractured collarbone Hospitalization History Heart murmur when he was young Hospitalization History Stroke x 3 UNRECOGNIZED CONTENT PROVIDED BELOW FOR UNRECOGNIZED SECTION REASON FOR VISIT BH f/u-Streetman MAPill boxBH f/uBH f/u Pt needing refill on Loxapine KAVITHA Melendez -- mzaldana, Selene--PAINCough/headache-radha,RMA, pt complaining of coughing up green phlegm that started 4 days ago and he also cant stay hydrated .he think's he may have had a fever earlier today refill requestIPT( Establish care ) Dina CARY follow-up f/u [id number]
--- OUTSIDE RECORDS SUMMARY | 2019-11-27 06:40 | XMS REPORT ---
Author Author Drew Groves Doctor Organization [facility] Address Unknown Phone Unavailable Care Team Providers Care Political Cartoonist Name Role Phone Migration, Doctor Unavailable Unavailable PROBLEMS Type Condition ICD9-CM Code UMM90-OR Code Onset Dates Condition S tatus SNOMED Code Problem Obesity E66.9 Active 888581092 Problem Seasonal allergic rhinitis due to pollen J30.1 Active 37683286 Problem Borderline personality disorder F60.3 Active 80080847 Problem Hypertriglyceridemia E78.1 Active 208926151 Problem Migraine without aura and without status migrain osus, not intractable G43.009 Active 406194777 Problem Marijuana use, episodic F12.90 Active 884062647 Problem Mild intermittent asthma with acute exacerbation J 45.21 Active 321558286 Problem Major depressive disorder, recurrent, moderate F33 .1 Active 63816859 Problem Mild intermittent asthma with acute exacerbation J 45.21 Active 100389803 Problem Bipolar II disorder F31.81 Active 77788926 Problem Erectile dysfunction, unspecified erectile dysfunction typ e N52.9 Active 228947702 Problem Tobacco abuse Z72.0 Active 330951 000 Problem Mood disorder F39 Active 452482 05 Problem Psychosexual dysfunction F52.9 Activ e 636250515 ALLERGIES No Information ENCOUNTERS Encounter Location Date Diagnosis [facility] [address] [id number] [address] [place] [id number] Oct, Body aches R52 and Viral ill ness B34.9 [facility] [address] [facility] [id number] [address] [place] [address] Jul, Body aches R52 and Viral gas troenteritis A08.4 [facility] [address] [facility] [id number] [address] [place] [address] May, Borderline personality disor laura F60.3 [facility] [address] [facility] [id number] [address] [place] [phone] Mar, Borderline personality disor laura F60.3 [facility] [address] [facility] [id number] [address] [place] [address] Feb, Psychosexual dysfunction F52 .9 ; Mood disorder F39 and Borderline personality disorder F60.3 [facility] [address] [facility] [id number] [address] [place] [address] Feb, [facility] [address] [facility] [id number] [address] [place] [address] Feb, Mild intermittent asthma wit h acute exacerbation J45.21 [facility] [address] [facility] [id number] [address] [place] [address] Feb, Borderline personality disor laura F60.3 [facility] [address] [facility] [id number] [address] [place] [id number] Jan, Borderline personality disor laura F60.3 [facility] [address] [id number] [address] [place] [address] Jan, Psychosexual dysfunction F52 .9 ; Mood disorder F39 and Borderline personality disorder F60.3 [facility] [address] [facility] [id number] [address] [place] [address] Jan, Erectile dysfunction, unspec ified erectile dysfunction type N52.9 ; Pre-syncope R55 ; Migraine without aura and without status migrainosus, not intractable G43.009 ; Low back pain M54.5 and Other chronic pain G89.29 [facility] [address] [facility] [id number] [address] [place] [address] Jan, Borderline personality disor laura F60.3 [facility] [address] [facility] [id number] [address] [place] [phone] Jan, Psychosexual dysfunction F52 .9 ; Mood disorder F39 and Borderline personality disorder F60.3 [facility] [address] [facility] [id number] [address] [place] [address] December, Borderline personality disor laura F60.3 [facility] [address] [id number] [address] [place] [address] December, Borderline personality disor laura F60.3 [facility] [address] [facility] [id number] [address] [place] [id number] Oct, Borderline personality disor laura F60.3 [facility] [address] [facility] [id number] [address] [place] [id number] Sep, [facility] [address] [id number] [address] [place] [phone] Aug, Mood disorder F39 and Border line personality disorder F60.3 [facility] [address] [facility] [id number] [address] [place] [address] Aug, Acute midline low back pain without sciatica M54.5 [facility] [address] [id number] [address] [place] [address] Aug, Acute midline low back pain without sciatica M54.5 [facility] [address] [id number] [address] [place] [address] Jul, Migraine without aura and wi thout status migrainosus, not intractable G43.009 [facility] [address] [id number] [address] [place] [address] Jul, Borderline personality disor laura F60.3 [facility] [address] [facility] [id number] [address] [place] [address] Jul, Insulin resistance E88.81 an d Erectile dysfunction, unspecified erectile dysfunction type N52.9 [facility] [address] [facility] [id number] [address] [place] [phone] Jul, Acute midline low back pain without sciatica M54.5 [facility] [address] [id number] [address] [place] [address] Jul, Migraine without aura and wi thout status migrainosus, not intractable G43.009 [facility] [address] [id number] [address] [place] [address] May, Acute midline low back pain without sciatica M54.5 [facility] [address] [id number] [address] [place] [address] May, Cough R05 and Acute nasophar yngitis J00 [facility] [address] [facility] [id number] [address] [place] [id number] Mar, Dental examination Z01.20 an d Caries K02.9 [facility] [address] [address] Mar, Insulin resistance E88.81 ; Acute midline low back pain without sciatica M54.5 and Chronic fatigue R53.82 [facility] [address] [address] Mar, Borderline personality disor laura F60.3 [address] [address] [address] Feb, [facility] [address] [address] Feb, Borderline personality disor laura F60.3 and Hypertriglyceridemia E78.1 [address] [address] [address] [address] Jan, Borderline personality disor laura F60.3 and Hypertriglyceridemia E78.1 [place] [address] [address] December, Erectile dysfunction, unspec ified erectile dysfunction type N52.9 [place] [address] [address] December, Migraine without aura and wi thout status migrainosus, not intractable G43.009 ; Seasonal allergic rhinitis due to pollen J30.1 ; Erectile dysfunction, unspecified erectile dysfunction type N52.9 ; Tobacco abuse Z72.0 ; Tobacco abuse counseling Z71.6 and Marijuana use, episodic F12.90 [facility] [address] [address] December, Borderline personality disor laura F60.3 [facility] [address] [id number] [address] [place] [address] Nov, Borderline personality disor laura F60.3 [facility] [address] [id number] [address] [place] [address] Nov, Migraine without aura and wi thout status migrainosus, not intractable G43.009 ; Hypertriglyceridemia E78.1 ; Seasonal allergic rhinitis due to pollen J30.1 ; Major depressive disorder, recurrent, moderate F33.1 ; Other obesity due to excess calories E66.09 and Body mass index (BMI) of 32.0- 32.9 in adult Z68.32 [facility] [address] [id number] [address] [place] [address] Oct, Low back pain M54.5 [address] [address] [address] Sep, Borderline personality disor laura F60.3 [place] [address] [id number] [address] [place] [address] Aug, Insulin resistance E88.81 ; Hypertriglyceridemia E78.1 ; Obesity E66.9 ; Major depressive disorder, recurrent, moderate F33.1 and Borderline personality disorder F60.3 [place] [address] [id number] [address] [place] [address] Aug, Borderline personality disor laura F60.3 [place] [address] [id number] [address] [place] [address] Jun, Borderline personality disor laura F60.3 [address] [address] [id number] May, Borderline personality disor laura F60.3 [place] [address] [id number] [address] [place] [address] 15 Apr, 2017 Insulin resistance E88.81 an d Hyperlipemia E78.5 [facility] [address] [facility] [id number] [address] [place] [address] Mar, Strain of muscle, fascia and tendon of lower back, sequela S39.012S [facility] [address] [facility] [id number] [address] [place] [address] Mar, Borderline personality disor laura F60.3 [place] [address] [facility] [id number] [address] [place] [address] Jan, Borderline personality disor laura F60.3 [place] [address] [facility] [id number] [address] [place] [address] December, [place] [address] [id number] [address] [place] [address] December, Insulin resistance E88.81 ; Hyperlipemia E78.5 ; Obesity E66.9 ; Thoracic spine pain M54.6 and Low back pain M54.5 [place] [address] [facility] [id number] [address] [place] [address] December, Borderline personality disor laura F60.3 [place] [address] [facility] [id number] [address] [place] [address] Nov, Bipolar II disorder F31.81 a nd Personality disorder F60.9 [place] [address] [id number] [address] [place] [address] Nov, Borderline personality disor laura F60.3 [place] [address] [facility] [id number] [address] [place] [address] Oct, Bipolar II disorder F31.81 a nd Personality disorder F60.9 [place] [address] [facility] [id number] [address] [place] [address] Oct, Borderline personality disor laura F60.3 [facility] [address] [facility] [id number] [address] [place] [address] Sep, Pain of left lower leg M79.6 62 [facility] [address] [id number] 07 Sep, 2016 Sore throat J02.9 ; Body ach es R52 and Acute non- recurrent maxillary sinusitis J01.00 [place] [address] [address] 07 Sep, 2016 Borderline personality disor laura F60.3 [address] [address] [address] Aug, Insulin resistance E88.81 ; Obesity E66.9 ; Personality disorder F60.9 ; Hyperlipemia E78.5 and Seasonal allergic rhinitis due to pollen J30.1 [address] [address] [address] Aug, Borderline personality disor laura F60.3 [address] [address] [address] Jul, Borderline personality disor laura F60.3 and Recurrent major depressive disorder, in partial remission F33.41 [place] [address] [address] Jul, Bipolar disorder F31.9 ; Sev ere episode of recurrent major depressive disorder, with psychotic features F33.3 and Personality disorder F60.9 [place] [address] [address] Jul, Borderline personality disor laura F60.3 [address] [address] [address] Jul, Bipolar disorder F31.9 ; Par anoid schizophrenia F20.0 ; Dissociative and conversion disorder, 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 and Severe episode of recurrent major depressive disorder, with psychotic features F33.3 [facility] [address] [address] Jun, Acute upper respiratory infe ction, unspecified J06.9 and Other viral agents as the cause of diseases classified elsewhere B97.89 [place] [address] [address] 07 May, 2016 Insulin resistance E88.81 ; Hyperlipemia E78.5 and Joint pain M25.50 [place] [address] [address] Feb, Insulin resistance E88.81 ; Hyperlipemia E78.5 ; Sore throat J02.9 and Abscess L02.91 [place] [address] [address] Nov, Obesity E66.9 ; Personality disorder F60.9 ; Metabolic syndrome E88.81 and Hyperlipemia E78.5 [address] [address] [address] Oct, Routine health maintenance Z 00.00 ; Bipolar disorder F31.9 ; Personality disorder F60.9 ; Family history of diabetes mellitus Z83.3 ; Family history of essential hypertension Z82.49 ; Joint pain M25.50 and Obesity E66.9 [address] [address] [address] Jul, Major depressive disorder, r ecurrent, moderate F33.1 ; Borderline personality disorder F60.3 and Psychosis F29 [address] [address] [address] 13 Jun, 2015 Borderline personality disor laura F60.3 ; Major depressive disorder, recurrent, moderate F33.1 and Psychosis F29 [address] [address] [id number] 09 Jun, 2015 Persistent mood [affective] disorder, unspecified F34.9 [place] [address] [address] 14 Nov, 2014 [place] [address] [address] 13 Nov, 2014 [place] [address] [address] Sep, [facility] [address] [id number] [address] [place] [address], [place] [address] Sep, [facility] [address] [id number] [address] [place] [address], [place] [address] Jul, [facility] [address] [id number] [address] [place] [address], [place] [address] Jul, [facility] [address] [id number] [address] [place] [address], [place] [address] Jul, [facility] [address] [id number] [address] [place] [address], [place] [address] Jul, [facility] [address] [id number] [address] [place] [address], [place] [address] Jul, [facility] [address] [id number] [address] [place] [address], [place] [address] Jul, [facility] [address] [id number] [address] [place] [address], [place] [address] Jun, [facility] [address] [id number] [address] [place] [address], [place] [address] Jan, [facility] [address] [id number] [address] [place] [address], [place] [address] Jan, [facility] [address] [id number] [address] [place] [address], [place] [address] December, [facility] [address] [id number] [address] [place] [address], [place] [address] December, [facility] [address] [id number] [address] [place] [address], [place] [address] Nov, [facility] [address] [id number] [address] [place] [address], [place] [address] Nov, [facility] [address] [id number] [address] [place] [address], [place] [address] Aug, [facility] [address] [id number] [address] [place] [address], [place] [address] Aug, [facility] [address] [id number] [address] [place] [address], [place] [address] Jul, [facility] [address] [id number] [address] [place] [address], [place] [address] Jul, [facility] [address] [id number] [address] [place] [address], [place] [address] Jun, [facility] [address] [id number] [address] [place] [address], [place] [address] Jun, [facility] [address] [id number] [address] [place] [address], [place] [address] Jun, [facility] [address] [id number] [address] [place] [address], [place] [address] Jun, [facility] [address] [id number] [address] [place] [address], [place] [address] May, [facility] [address] [id number] [address] [place] [address], [place] [address] May, [facility] [address] [id number] [address] [place] [address], [place] [address] Mar, [facility] [address] [id number] [address] [place] [address], [place] [address] Mar, [facility] [address] [id number] [address] [place] [address], [place] [address] Feb, [facility] [address] [id number] [address] [place] [address], [place] [address] Feb, [facility] [address] [id number] [address] [place] [address], [place] [address] Feb, [facility] [address] [id number] [address] [place] [address], [place] [address] Feb, [facility] [address] [id number] [address] [place] [address], [place] [address] Feb, [facility] [address] [id number] [address] [place] [address] Jul, [facility] [address] [id number] [address] [place] [address] Jul, [facility] [address] [id number] [address] [place] [address] Jun, [facility] [address] [id number] [address] [place] [address] Jun, [facility] [address] [id number] [address] [place] [address] May, [facility] [address] [id number] [address] [place] [address] Jun, [facility] [address] [id number] [address] [place] [address] May, [facility] [address] [id number] [address] [place] [address] Mar, [facility] [address] [id number] [address] [place] [address] Jul, [facility] [address] [id number] [address] [place] [address] Jun, [facility] [address] [id number] [address] [place] [address] May, [facility] [address] [id number] [address] [place] [address] May, IMMUNIZATIONS No Known Immunizations SOCIAL HISTORY Never Assessed REASON FOR VISIT PLAN OF CARE VITAL SIGNS MEDICATIONS Unknown Medications RESULTS No Results PROCEDURES No Known procedures INSTRUCTIONS MEDICATIONS ADMINISTERED No Known Medications MEDICAL (GENERAL) HISTORY Type Description Date Medical History Degenerative arthritis lumbar spine Medical History Hx CVA Medical History Borderline personality disorder Medical History Depression Medical History Asthma, unspecified asthma s everity, unspecified whether complicated, unspecified whether persistent Surgical History appendectomy 1992 Surgical History left arm fx repair Surgical History fractured collarbone Hospitalization History Heart murmur when he was young Hospitalization History Stroke x 3
--- OUTSIDE RECORDS SUMMARY | 2019-11-27 06:40 | XMS REPORT ---
Author Author Drew Groves Doctor Organization [facility] Address Unknown Phone Unavailable Care Team Providers Care Copy Holder Name Role Phone Migration, Doctor Unavailable Unavailable PROBLEMS Type Condition ICD9-CM Code UNV91-FZ Code Onset Dates Condition S tatus SNOMED Code Problem Obesity E66.9 Active 895828905 Problem Seasonal allergic rhinitis due to pollen J30.1 Active 48639278 Problem Borderline personality disorder F60.3 Active 49066533 Problem Hypertriglyceridemia E78.1 Active 631040334 Problem Migraine without aura and without status migrain osus, not intractable G43.009 Active 313111154 Problem Marijuana use, episodic F12.90 Active 393609207 Problem Mild intermittent asthma with acute exacerbation J 45.21 Active 218302982 Problem Major depressive disorder, recurrent, moderate F33 .1 Active 34334755 Problem Mild intermittent asthma with acute exacerbation J 45.21 Active 987527697 Problem Bipolar II disorder F31.81 Active 87204485 Problem Erectile dysfunction, unspecified erectile dysfunction typ e N52.9 Active 169020078 Problem Tobacco abuse Z72.0 Active 259751 000 Problem Mood disorder F39 Active 337525 05 Problem Psychosexual dysfunction F52.9 Activ e [id number] ALLERGIES No Information ENCOUNTERS Encounter Location Date Diagnosis [facility] [address] [facility] [id number] [address] [place] [address] Jul, Body aches R52 and Viral gas troenteritis A08.4 [facility] [address] [id number] [place] [address] May, Borderline personality disorder F60.3 [facility] [address] [id number] [place] [address] Mar, Borderline personality disorder F60.3 [facility] [address] [facility] [place] [address] Feb, Psychosexual dysfunction F52.9 ; Mood di sorder F39 and Borderline personality disorder F60.3 [facility] [address] [place] [id number] [place] [address] Feb, [facility] [address] [facility] [id number] [address] [place] [address] Feb, Mild intermittent asthma wit h acute exacerbation J45.21 [facility] [address] [address] Feb, Borderline personality disorder F60.3 [facility] [address] [address] Jan, Borderline personality disorder F60.3 [place] [address] [address] Jan, Psychosexual dysfunction F52.9 ; Mood di sorder F39 and Borderline personality disorder F60.3 [facility] [address] [address] Jan, Erectile dysfunction, unspecified erecti le dysfunction type N52.9 ; Pre-syncope R55 ; Migraine without aura and without status migrainosus, not intractable G43.009 ; Low back pain M54.5 and Other chronic pain G89.29 [facility] [address] [address] Jan, Borderline personality disorder F60.3 [facility] [address] [address] Jan, Psychosexual dysfunction F52.9 ; Mood di sorder F39 and Borderline personality disorder F60.3 [facility] [address] [address] December, Borderline personality disorder F60.3 [facility] [address] [address] December, Borderline personality disorder F60.3 [facility] [address] [address] Oct, Borderline personality disorder F60.3 [place] [address] [address] Sep, [facility] [address] [address] Aug, Mood disorder F39 and Borderline persona lity disorder F60.3 [facility] [address] [address] Aug, Acute midline low back pain without scia elgin M54.5 [facility] [address] [address] Aug, Acute midline low back pain without scia elgin M54.5 [facility] [address] [address] Jul, Migraine without aura and without status migrainosus, not intractable G43.009 [facility] [address] [address] Jul, Borderline personality disorder F60.3 [facility] [address] [address] Jul, Insulin resistance E88.81 and Erectile d ysfunction, unspecified erectile dysfunction type N52.9 [facility] [address] [address] Jul, Acute midline low back pain without scia elgin M54.5 [facility] [address] [address] Jul, Migraine without aura and without status migrainosus, not intractable G43.009 [facility] [address] [address] May, Acute midline low back pain without scia elgin M54.5 [facility] [address] [facility] [id number] [address] [place] [address] May, Cough R05 and Acute nasophar yngitis J00 [facility] [address] [facility] [id number] [place] [id number] Mar, Dental examination Z01.20 and Caries K02 .9 [place] [address] [address] Mar, Insulin resistance E88.81 ; Acute midlin e low back pain without sciatica M54.5 and Chronic fatigue R53.82 [place] [address] [address] Mar, Borderline personality disorder F60.3 [place] [address] [address] Feb, [place] [address] [address] Feb, Borderline personality disorder F60.3 an d Hypertriglyceridemia E78.1 [place] [address] [address] Jan, Borderline personality disorder F60.3 an d Hypertriglyceridemia E78.1 [place] [address] [address] December, Erectile dysfunction, unspecified erecti le dysfunction type N52.9 [place] [address] [address] December, Migraine without aura and without status migrainosus, not intractable G43.009 ; Seasonal allergic rhinitis due to pollen J30.1 ; Erectile dysfunction, unspecified erectile dysfunction type N52.9 ; Tobacco abuse Z72.0 ; Tobacco abuse counseling Z71.6 and Marijuana use, episodic F12.90 [place] [address] [address] December, Borderline personality disorder F60.3 [place] [address] [address] Nov, Borderline personality disorder F60.3 [place] [address] [place] [id number] Nov, Migraine without aura and without status migrainosus, not intractable G43.009 ; Hypertriglyceridemia E78.1 ; Seasonal allergic rhinitis due to pollen J30.1 ; Major depressive disorder, recurrent, moderate F33.1 ; Other obesity due to excess calories E66.09 and Body mass index (BMI) of 32.0-32.9 in adult Z68.32 [facility] [address] [facility] [id number] [place] [address] Oct, Low back pain M54.5 [place] [address] [address] Sep, Borderline personality disorder F60.3 [place] [address] [address] Aug, Insulin resistance E88.81 ; Hypertriglyc eridemia E78.1 ; Obesity E66.9 ; Major depressive disorder, recurrent, moderate F33.1 and Borderline personality disorder F60.3 [place] [address] [address] Aug, Borderline personality disorder F60.3 [place] [address] [address] Jun, Borderline personality disorder F60.3 [place] [address] [address] May, Borderline personality disorder F60.3 [place] [address] [address] Apr, Insulin resistance E88.81 and Hyperlipem ia E78.5 [facility] [address] [facility] [id number] [place] [address] Mar, Strain of muscle, fascia and tendon of lower back, sequela S39.012S [place] [address] [address] Mar, Borderline personality disorder F60.3 [place] [address] [address] Jan, Borderline personality disorder F60.3 [place] [address] [address] December, [place] [address] [address] December, Insulin resistance E88.81 ; Hyperlipemia E78.5 ; Obesity E66.9 ; Thoracic spine pain M54.6 and Low back pain M54.5 [place] [address] [address] December, Borderline personality disorder F60.3 [place] [address] [address] Nov, Bipolar II disorder F31.81 and Personali ty disorder F60.9 [place] [address] [address] Nov, Borderline personality disorder F60.3 [place] [address] [address] Oct, Bipolar II disorder F31.81 and Personali ty disorder F60.9 [place] [address] [address] Oct, Borderline personality disorder F60.3 [facility] IN [place] [address] [address] Sep, Pain of left lower leg M79.6 [address] [facility] IN [address] [address] Sep, Sore throat J02.9 ; Body ach es R52 and Acute non- recurrent maxillary sinusitis J01.00 [place] [address] [address] Sep, Borderline personality disorder F60.3 [place] [address] [address] Aug, Insulin resistance E88.81 ; Obesity E66. 9 ; Personality disorder F60.9 ; Hyperlipemia E78.5 and Seasonal allergic rhinitis due to pollen J30.1 [place] [address] [address] Aug, Borderline personality disorder F60.3 [place] [address] [address] Jul, Borderline personality disorder F60.3 an d Recurrent major depressive disorder, in partial remission F33.41 [place] [address] [address] Jul, Bipolar disorder F31.9 ; Severe episode of recurrent major depressive disorder, with psychotic features F33.3 and Personality disorder F60.9 [place] [address] [address] Jul, Borderline personality disorder F60.3 [place] [address] [address] Jul, Bipolar disorder F31.9 ; Paranoid schizo phrenia F20.0 ; Dissociative and conversion disorder, 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 and Severe episode of recurrent major depressive disorder, with psychotic features F33.3 [facility] [address] [facility] [id number] [address] [place] [address] Jun, Acute upper respiratory infe ction, unspecified J06.9 and Other viral agents as the cause of diseases classified elsewhere B97.89 [place] [address] [address] May, Insulin resistance E88.81 ; Hyperlipemia E78.5 and Joint pain M25.50 [place] [address] [address] Feb, Insulin resistance E88.81 ; Hyperlipemia E78.5 ; Sore throat J02.9 and Abscess L02.[address] [address] Nov, Obesity E66.9 ; Personality disorder F60 .9 ; Metabolic syndrome E88.81 and Hyperlipemia E78.5 [place] [address] [address] 29 Mar, 2016 Routine health maintenance Z00.00 ; Bipo lar disorder F31.9 ; Personality disorder F60.9 ; Family history of diabetes mellitus Z83.3 ; Family history of essential hypertension Z82.49 ; Joint pain M25.50 and Obesity E66.9 [facility] [address] [address] Jul, Major depressive disorder, recurrent, mo derate F33.1 ; Borderline personality disorder F60.3 and Psychosis F29 [place] [address] [address] Jun, Borderline personality disorder F60.3 ; Major depressive disorder, recurrent, moderate F33.1 and Psychosis F29 [place] [address] [address] Jun, Persistent mood [affective] disorder, un specified F34.9 [place] [address] [address] Nov, [place] [address] [address] Nov, [facility] [address] [address] Sep, [place] [address] [address] Sep, [facility] [address] [address] Jul, [facility] [address] [address] Jul, [facility] [address] [address] Jul, [place] [address] [address] Jul, [facility] [address] [address] Jul, [facility] [address] [address] Jul, [facility] [address] [id number] [place] [address] Jun, [facility] [address] [id number] [place] [address] Jan, [facility] [address] [id number] [place] [address] Jan, [facility] [address] [id number] [place] [address] December, [facility] [address] [id number] [place] [address] December, [facility] [address] [id number] [place] [address] Nov, [facility] [address] [id number] [place] [address] Nov, [facility] [id number] [place] [address] Aug, [facility] [address] [id number] [place] [address] Aug, [facility] [address] [id number] [place] [address] Jul, [facility] [address] [id number] [place] [address] Jul, [facility] [address] [id number] [place] [address] Jun, [facility] [address] [id number] [place] [address] Jun, [facility] [address] [id number] [place] [address] Jun, [facility] [address] [id number] [place] [address] Jun, [facility] [address] [id number] [place] [address] May, [facility] [address] [id number] [place] [address] May, [facility] [address] [facility] [id number] [facility] [place] [address] Mar, [facility] [address] [id number] [place] [address] Mar, [facility] [address] [id number] [place] [address] Feb, [facility] [address] [id number] [place] [address] Feb, [facility] [address] [id number] [place] [address] Feb, [facility] [address] [id number] [place] [address] Feb, [facility] [address] [id number] [place] [address] Feb, [facility] [address] [id number] [place] [address] Jul, [facility] [address] [id number] [place] [address] Jul, [facility] [address] [id number] [place] [address] Jun, [facility] [address] [id number] [place] [address] Jun, [facility] [address] [id number] [place] [address] May, [facility] [address] [id number] [place] [address] Jun, [facility] [address] [id number] [place] [address] May, [facility] [address] [id number] [place] [address] Mar, [facility] [address] [id number] [place] [address] Jul, [facility] [address] [facility] [id number] [place] [address] Jun, [facility] [address] [id number] [place] [address] May, [facility] [address] [id number] [place] [address] May, IMMUNIZATIONS No Known Immunizations SOCIAL HISTORY Never Assessed REASON FOR VISIT PLAN OF CARE VITAL SIGNS Height 60.75 in 2013-12-20 Weight 222.4 lbs 2013-12-20 Temperature 97.9 degrees Fahrenheit 2013-12-20 Heart Rate 80 bpm 2013-12-20 Blood pressure systolic 122 mmHg 2013-12-20 Blood pressure diastolic 82 mmHg 2013-12-20 MEDICATIONS No Known Medications RESULTS No Results PROCEDURES No Known [...]
--- OUTSIDE RECORDS SUMMARY | 2019-11-27 06:43 | XMS REPORT | Continuity of Care Document ---
Demographics Preferred Language Unknown Marital Status Unknown Advent Affiliation Unknown Race Unknown Ethnic Group Unknown Author Organization Unknown Address Unknown Phone Unavailable Allergies Active Description Code Type Severity Reaction Onset Reported/Identified Relationship to Patient Clinical Status Yes No Known Drug Allergies [id number] Drug Allergy Mild N/A 12/19/2008 Yes Fanapt 1mg(2)-2mg(2)- 4mg(2)-6mg(2) tabl ets,dose pack Drug Allergy N/A N/A 11/25/2013 Yes Fanapt 6 mg tablet Drug Allerg y N/A N/A 11/25/2013 Medications There is no data. 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 04/12/2008 SAYRA HERRERA DO 296 .90 UNSPECIFIED EPISODIC MOOD DISORDER 04/12/2008 RODNEY ALVAREZ APRN 296.90 UNSPECIFIED EPISODIC MOOD DISORDER 04/12/2008 RODNEY ALVAREZ APRN 296.90 UNSPECIFIED EPISODIC MOOD DISORDER 04/12/2008 RODNEY ALVAREZ APRN 296.90 UNSPECIFIED EPISODIC MOOD DISORDER 04/12/2008 RODNEY ALVAREZ APRN 296.90 UNSPECIFIED EPISODIC MOOD DISORDER 04/12/2008 NII GARDINER, JOSE 296.9 0 UNSPECIFIED EPISODIC MOOD DISORDER 04/12/2008 TARYN ROME 296.90 UNSPECIFIED EPISODIC MOOD DISORDER 05/04/2008 296.40 BIP OLAR I DISORDER MOST RECENT EPISODE (OR CURRENT) MANIC UNSPECIFIED 05/04/2008 296.40 BIP OLAR I DISORDER MOST RECENT EPISODE (OR CURRENT) MANIC UNSPECIFIED 05/04/2008 SAYRA HERRERA DO 296 .40 BIPOLAR I DISORDER MOST RECENT EPISODE (OR CURRENT) MANIC UNSPECIFIED 05/04/2008 RODNEY ALVAREZ APRN 296.40 BIPOLAR I DISORDER MOST RECENT EPISODE ( OR CURRENT) MANIC UNSPECIFIED 05/04/2008 RODNEY ALVAREZ APRN 296.40 BIPOLAR I DISORDER MOST RECENT EPISODE ( OR CURRENT) MANIC UNSPECIFIED 05/04/2008 RODNEY ALVAREZ APRN JERICHO 296.40 BIPOLAR I DISORDER MOST RECENT EPISODE ( OR CURRENT) MANIC UNSPECIFIED 05/04/2008 ANTONIO THAPA RODNEY JERICHO 296.40 BIPOLAR I DISORDER MOST RECENT EPISODE ( OR CURRENT) MANIC UNSPECIFIED 05/04/2008 JOSE BALES MD 296.4 0 BIPOLAR I DISORDER MOST RECENT EPISODE (OR CURRENT) MANIC UNSPECIFIED 05/04/2008 TARYN ROME 296.40 BIPOLAR I DISORDER MOST RECENT EPISODE ( OR CURRENT) MANIC UNSPECIFIED 09/19/2008 296.60 BIP OLAR I DISORDER MOST RECENT EPISODE (OR CURRENT) MIXED UNSPECIFIED 09/19/2008 296.60 BIP OLAR I DISORDER MOST RECENT EPISODE (OR CURRENT) MIXED UNSPECIFIED 09/19/2008 SAYRA HERRERA DO 296 .60 BIPOLAR I DISORDER MOST RECENT EPISODE (OR CURRENT) MIXED UNSPECIFIED 09/19/2008 ANTONIO THAPA RODNEY JERICHO 296.60 BIPOLAR I DISORDER MOST RECENT EPISODE ( OR CURRENT) MIXED UNSPECIFIED 09/19/2008 ANTONIO THAPA RODNEY JERICHO 296.60 BIPOLAR I DISORDER MOST RECENT EPISODE ( OR CURRENT) MIXED UNSPECIFIED 09/19/2008 ANTONIO THAPA RODNEY JERICHO 296.60 BIPOLAR I DISORDER MOST RECENT EPISODE ( OR CURRENT) MIXED UNSPECIFIED 09/19/2008 ANTONIO THAPA RODNEY JERICHO 296.60 BIPOLAR I DISORDER MOST RECENT EPISODE ( OR CURRENT) MIXED UNSPECIFIED 09/19/2008 JOSE BALES MD 296.6 0 BIPOLAR I DISORDER MOST RECENT EPISODE (OR CURRENT) MIXED UNSPECIFIED 09/19/2008 TARYN ROME 296.60 BIPOLAR I DISORDER MOST RECENT EPISODE ( OR CURRENT) MIXED UNSPECIFIED 09/21/2008 V58.69 LISET G-TERM (CURRENT) USE OF OTHER MEDICATIONS 09/21/2008 V58.69 LISET G-TERM (CURRENT) USE OF OTHER MEDICATIONS 09/21/2008 SAYRA HERRERA DO V58 .69 LONG-TERM (CURRENT) USE OF OTHER MEDICATIONS 09/21/2008 RODNEY ALVAREZ APRN V58.69 LONG-TERM (CURRENT) USE OF OTHER MEDICATIONS 09/21/2008 RODNEY ALVAREZ APRN V58.69 LONG-TERM (CURRENT) USE OF OTHER MEDICATIONS 09/21/2008 RODNEY ALVAREZ APRN V58.69 LONG-TERM (CURRENT) USE OF OTHER MEDICATIONS 09/21/2008 RODNEY ALVAREZ APRN V58.69 LONG-TERM (CURRENT) USE OF OTHER MEDICATIONS 09/21/2008 JOSE BALES MD V58.6 9 LONG-TERM (CURRENT) USE OF OTHER MEDICATIONS 09/21/2008 TARYN ORME V58.69 LONG-TERM (CURRENT) USE OF OTHER MEDICATIONS 10/07/2008 V62.81 INT ERPERSONAL PROBLEMS NOT ELSEWHERE CLASSIFIED 10/07/2008 V62.81 INT ERPERSONAL PROBLEMS NOT ELSEWHERE CLASSIFIED 10/07/2008 SAYRA HERRERA DO V62 .81 INTERPERSONAL PROBLEMS NOT ELSEWHERE CLASSIFIED 10/07/2008 ANTONIO THAPA RODNEY JERICHO V62.81 INTERPERSONAL PROBLEMS NOT ELSEWHERE CLASSIFIED 10/07/2008 ANTONIO THAPA RODNEY JERICHO V62.81 INTERPERSONAL PROBLEMS NOT ELSEWHERE CLASSIFIED 10/07/2008 ANTONIO THAPA RODNEY JERICHO V62.81 INTERPERSONAL PROBLEMS NOT ELSEWHERE CLASSIFIED 10/07/2008 ANTONIO THAPA RODNEY JERICHO V62.81 INTERPERSONAL PROBLEMS NOT ELSEWHERE CLASSIFIED 10/07/2008 JOSE BALES MD V62.8 1 INTERPERSONAL PROBLEMS NOT ELSEWHERE CLASSIFIED 10/07/2008 TARYN ROME V62.81 INTERPERSONAL PROBLEMS NOT ELSEWHERE CLASSIFIED 11/16/2008 V61.10 UNS PECIFIED COUNSELING FOR MARITAL AND PARTNER PROBLEMS 11/16/2008 V61.20 COU NSELING FOR PARENT-CHILD PROBLEM UNSPECIFIED 11/16/2008 V61.10 UNS PECIFIED COUNSELING FOR MARITAL AND PARTNER PROBLEMS 11/16/2008 V61.20 COU NSELING FOR PARENT-CHILD PROBLEM UNSPECIFIED 11/16/2008 SAYRA HERRERA DO F V61 .10 UNSPECIFIED COUNSELING FOR MARITAL AND PARTNER PROBLEMS 11/16/2008 SAYRA HERRERA DO F V61 .20 COUNSELING FOR PARENT-CHILD PROBLEM UNSPECIFIED 11/16/2008 RODNEY ALVAREZ APRN V61.10 UNSPECIFIED COUNSELING FOR MARITAL AND PARTNER PROBLEM S 11/16/2008 RODNEY ALVAREZ APRN V61.20 COUNSELING FOR PARENT-CHILD PROBLEM UNSPECIFIED 11/16/2008 RODNEY ALVAREZ APRN V61.10 UNSPECIFIED COUNSELING FOR MARITAL AND PARTNER PROBLEM S 11/16/2008 RODNEY ALVAREZ APRN V61.20 COUNSELING FOR PARENT-CHILD PROBLEM UNSPECIFIED 11/16/2008 ALVAREZ RODNEY THAPA V61.10 UNSPECIFIED COUNSELING FOR MARITAL AND PARTNER PROBLEM S 11/16/2008 ALVAREZ RODNEY THAPA V61.20 COUNSELING FOR PARENT-CHILD PROBLEM UNSPECIFIED 11/16/2008 ALVAREZ RODNEY THAPA V61.10 UNSPECIFIED COUNSELING FOR MARITAL AND PARTNER PROBLEM S 11/16/2008 ALVAREZ RODNEY THAPA V61.20 COUNSELING FOR PARENT-CHILD PROBLEM UNSPECIFIED 11/16/2008 JOSE BALES MD V61.1 0 UNSPECIFIED COUNSELING FOR MARITAL AND PARTNER PROBLEMS 11/16/2008 JOSE BALES MD V61.2 0 COUNSELING FOR PARENT-CHILD PROBLEM UNSPECIFIED 11/16/2008 TARYN ROME V61.10 UNSPECIFIED COUNSELING FOR MARITAL AND PARTNER PROBLEM S 11/16/2008 TARYN ROME V61.20 COUNSELING FOR PARENT-CHILD PROBLEM UNSPECIFIED 03/06/2009 296.80 MO BIPOLAR NOS 03/06/2009 296.80 MO BIPOLAR NOS 03/06/2009 SAYRA HERRERA DO 296 .80 MO BIPOLAR NOS 03/06/2009 ALVAREZ RODNEY THAPA 296.80 MO BIPOLAR NOS 03/06/2009 ALVAREZ RODNEY THAPA 296.80 MO BIPOLAR NOS 03/06/2009 ALVAREZ RODNEY THAPAH 296.80 MO BIPOLAR NOS 03/06/2009 ALVAREZ RODNEY THAPAH 296.80 MO BIPOLAR NOS 03/06/2009 JOSE BALES MD 296.8 0 MO BIPOLAR NOS 03/06/2009 TARYN ROME 296.80 MO BIPOLAR NOS 04/20/2009 296.52 MO BIPOLAR I DEPRESSED MODERATE 04/20/2009 296.52 MO BIPOLAR I DEPRESSED MODERATE 04/20/2009 SAYRA HERRERA DO F 296 .52 MO BIPOLAR I DEPRESSED MODERATE 04/20/2009 RODNEY ALVAREZ APRN 296.52 MO BIPOLAR I DEPRESSED MODERATE 04/20/2009 ALVAREZ RODNEY THAPA 296.52 MO BIPOLAR I DEPRESSED MODERATE 04/20/2009 RODNEY ALVAREZ APRNH 296.52 MO BIPOLAR I DEPRESSED MODERATE 04/20/2009 ALVAREZ RODNEY THAPA 296.52 MO BIPOLAR I DEPRESSED MODERATE 04/20/2009 JOSE BALES MD 296.5 2 MO BIPOLAR I DEPRESSED MODERATE 04/20/2009 HARPER PINTO, TARYN M 296.52 MO BIPOLAR I DEPRESSED MODERATE 05/02/2009 296.50 MO BIPOLAR I DEPRESSED UNSPECIFIED 05/02/2009 296.50 MO BIPOLAR I DEPRESSED UNSPECIFIED 05/02/2009 JAVIER ZAMARRIPA SAYRA F 296 .50 MO BIPOLAR I DEPRESSED UNSPECIFIED 05/02/2009 ALVAREZ EMBEDDED FIRMWARE DEVELOPER, RODNEY ECHAVARRIA 296.50 MO BIPOLAR I DEPRESSED UNSPECIFIED 05/02/2009 ALVAREZ EMBEDDED FIRMWARE DEVELOPER, RODNEY JERICHO 296.50 MO BIPOLAR I DEPRESSED UNSPECIFIED 05/02/2009 ALVAREZ EMBEDDED FIRMWARE DEVELOPER, RODNEY ECHAVARRIA 296.50 MO BIPOLAR I DEPRESSED UNSPECIFIED 05/02/2009 ALVAREZ EMBEDDED FIRMWARE DEVELOPER, RODNEY ECHAVARRIA 296.50 MO BIPOLAR I DEPRESSED UNSPECIFIED 05/02/2009 JOSE BALES MD 296.5 0 MO BIPOLAR I DEPRESSED UNSPECIFIED 05/02/2009 TARYN ROME M 296.50 MO BIPOLAR I DEPRESSED UNSPECIFIED 11/23/2009 296.89 MO BIPOLAR II 11/23/2009 301.9 PD P ERS DIS NOS 11/23/2009 296.89 MO BIPOLAR II 11/23/2009 301.9 PD P ERS DIS NOS 11/23/2009 SAYRA HERRERA DO F 296 .89 MO BIPOLAR II 11/23/2009 SAYRA HERRERA DO F 301 .9 PD PERS DIS NOS 11/23/2009 ALVAREZ ALANIS, RODNEY JERICHO 296.89 MO BIPOLAR II 11/23/2009 ALVAREZ EMBEDDED FIRMWARE DEVELOPERRODNEY Morales 301.9 PD PERS DIS NOS 11/23/2009 ALVAREZ EMBEDDED FIRMWARE DEVELOPER, RODNEY ECHAVARRIA 296.89 MO BIPOLAR II 11/23/2009 ALVAREZ EMBEDDED FIRMWARE DEVELOPER, RODNEY LALAH 301.9 PD PERS DIS NOS 11/23/2009 ALVAREZ EMBEDDED FIRMWARE DEVELOPER, RODNEY LALAH 296.89 MO BIPOLAR II 11/23/2009 ALVAREZ EMBEDDED FIRMWARE DEVELOPER, RODNEY LALAH 301.9 PD PERS DIS NOS 11/23/2009 ALVAREZ EMBEDDED FIRMWARE DEVELOPER, RODNEY ECHAVARRIA 296.89 MO BIPOLAR II 11/23/2009 ANTONIO EMBEDDED FIRMWARE DEVELOPER, RODNEY JERICHO 301.9 PD PERS DIS NOS 11/23/2009 JOSE BALES MD 296.8 9 MO BIPOLAR II 11/23/2009 JOSE BALES MD 301.9 PD PERS DIS NOS 11/23/2009 TARYN ROME 296.89 MO BIPOLAR II 11/23/2009 TARYN ROME 301.9 PD PERS DIS NOS 10/02/2010 295.70 DIPIKA IZOAFFECTIVE DISORDER UNSPECIFIED STATE 10/02/2010 295.70 DIPIKA IZOAFFECTIVE DISORDER UNSPECIFIED STATE 10/02/2010 SAYRA HERRERA DO 295 .70 SCHIZOAFFECTIVE DISORDER UNSPECIFIED STATE 10/02/2010 ALVAREZ EMBEDDED FIRMWARE DEVELOPER, RODNEY ECHAVARRIA 295.70 SCHIZOAFFECTIVE DISORDER UNSPECIFIED STATE 10/02/2010 ALVAREZ EMBEDDED FIRMWARE DEVELOPER, RODNEY JERICHO 295.70 SCHIZOAFFECTIVE DISORDER UNSPECIFIED STATE 10/02/2010 ALVAREZ EMBEDDED FIRMWARE DEVELOPER, RODNEY ECHAVARRIA 295.70 SCHIZOAFFECTIVE DISORDER UNSPECIFIED STATE 10/02/2010 ALVAREZ EMBEDDED FIRMWARE DEVELOPER, RODNEY JERICHO 295.70 SCHIZOAFFECTIVE DISORDER UNSPECIFIED STATE 10/02/2010 JOSE BALES MD 295.7 0 SCHIZOAFFECTIVE DISORDER UNSPECIFIED STATE 10/02/2010 TARYN ROME 295.70 SCHIZOAFFECTIVE DISORDER UNSPECIFIED STATE 01/12/2011 Ot 372.14 01/12/2011 Ot 372.30 01/12/2011 Ot 379.93 12/25/2012 KARI GARDINER, GET [place] Ot 462 01/01/2013 ELISE GARDINER, HEIDI Greco Ot 462 02/05/2013 SAYRA HERRERA DO 681 .02 ONYCHIA AND PARONYCHIA OF FINGER 02/05/2013 ALVAREZRODNEY CONTRERAS APRN 681.02 ONYCHIA AND PARONYCHIA OF FINGER 02/05/2013 ALVAREZ RODNEY THAPA 681.02 ONYCHIA AND PARONYCHIA OF FINGER 02/05/2013 ALVAREZ RODNEY THAPA 681.02 ONYCHIA AND PARONYCHIA OF FINGER 02/05/2013 ALVAREZRODNEY CONTRERAS APRN 681.02 ONYCHIA AND PARONYCHIA OF FINGER 02/05/2013 JOSE BALES MD 681.0 2 ONYCHIA AND PARONYCHIA OF FINGER 02/05/2013 TARYN ROME 681.02 ONYCHIA AND PARONYCHIA OF FINGER 09/28/2013 JORDAN GARDINER, JANES [place] Ot 729.5 09/28/2013 JORDAN GARDINER, JANES [place] Ot 780.96 10/21/2013 PINEDA GARDINER, SERGIO [place] Ot 462 10/21/2013 PINEDA GARDINER, SERGIO [place]ack[place] Ot 463 01/31/2014 ANTONIO THAPA RODNEY ECHAVARRIA 296.32 MO DEPRESSIVE RECURRENT MODERATE 01/31/2014 ANTONIO THAPA RODNEY ECHAVARRIA 301.83 PD BORDERLINE 01/31/2014 JOSE BALES MD 296.3 2 MO DEPRESSIVE RECURRENT MODERATE 01/31/2014 JOSE BALES MD 301.8 3 PD BORDERLINE 01/31/2014 TARYN ROME 296.32 MO DEPRESSIVE RECURRENT MODERATE 01/31/2014 TARYN ROME 301.83 PD BORDERLINE 07/12/2014 JOSE BALES MD 728.8 5 SPASM OF MUSCLE 07/12/2014 TARYN ROME 728.85 SPASM OF MUSCLE 10/21/2014 Ot 782.0 08/21/2015 JAEL RICE APRN Ot R07.89 OTHER CHEST PAIN 03/09/2016 JAEL RICE APRN Ot G43.909 MIGRAINE, UNSP, NOT INTRACTABLE, WITHOUT 03/09/2016 JAEL RICE APRN Ot J32 .9 CHRONIC SINUSITIS, UNSPECIFIED 03/11/2016 JAEL RICE APRN Ot G43.909 MIGRAINE, UNSP, NOT INTRACTABLE, WITHOUT 03/11/2016 JAEL RICE APRN Ot J32 .9 CHRONIC SINUSITIS, UNSPECIFIED 03/14/2016 JAEL RICE APRN Ot G43.909 MIGRAINE, UNSP, NOT INTRACTABLE, WITHOUT 03/14/2016 JAEL RICE APRN Ot J32 .9 CHRONIC SINUSITIS, UNSPECIFIED 04/02/2016 JAEL RICE APRN Ot G43.909 MIGRAINE, UNSP, NOT INTRACTABLE, WITHOUT 04/02/2016 JAEL RICE APRN Ot J32 .9 CHRONIC SINUSITIS, UNSPECIFIED 04/25/2016 JAEL RICE APRN Ot M79.632 PAIN IN LEFT FOREARM 04/25/2016 JEAL RICE APRN Ot R07.89 OTHER CHEST PAIN 04/26/2016 JAEL RICE APRN Ot M79.632 PAIN IN LEFT FOREARM 04/26/2016 JAEL RICE APRN Ot R07.89 OTHER CHEST PAIN 02/13/2019 JAEL RICE APRN Ot F20 .0 PARANOID SCHIZOPHRENIA 02/13/2019 JAEL RICE APRN Ot F32 .9 MAJOR DEPRESSIVE DISORDER, SINGLE EPISOD 02/13/2019 JAEL RICE APRN Ot F41 .9 ANXIETY DISORDER, UNSPECIFIED 02/13/2019 JAEL RICE APRN Ot F60 .9 PERSONALITY DISORDER, UNSPECIFIED 02/13/2019 JAEL RICE APRN Ot J45.909 UNSPECIFIED ASTHMA, UNCOMPLICATED 02/13/2019 JAEL RICE APRN Ot R45.851 SUICIDAL IDEATIONS 02/13/2019 JAEL RICE APRN Ot 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 02/13/2019 JAEL RICE APRN Ot Z86.73 PRSNL HX OF TIA (TIA), AND CEREB INFRC W 02/13/2019 JAEL RICE APRN Ot Z90.49 ACQUIRED ABSENCE OF OTHER SPECIFIED PART 02/19/2019 JAEL RICE APRN Ot F20 .0 PARANOID SCHIZOPHRENIA 02/19/2019 JAEL RICE APRN Ot F32 .9 MAJOR DEPRESSIVE DISORDER, SINGLE EPISOD 02/19/2019 JAEL RICE APRN Ot F41 .9 ANXIETY DISORDER, UNSPECIFIED 02/19/2019 JAEL RICE APRN Ot F60 .9 PERSONALITY DISORDER, UNSPECIFIED 02/19/2019 JAEL RICE APRN Ot J45.909 UNSPECIFIED ASTHMA, UNCOMPLICATED 02/19/2019 JAEL RICE APRN Ot R45.851 SUICIDAL IDEATIONS 02/19/2019 JAEL RICE APRN Ot 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 02/19/2019 JAEL RICE APRN Ot Z86.73 PRSNL HX OF TIA (TIA), AND CEREB INFRC W 02/19/2019 JAEL RICE EMBEDDED FIRMWARE DEVELOPER Ot Z90.49 ACQUIRED ABSENCE OF OTHER SPECIFIED PART 08/03/2019 JAEL RICE EMBEDDED FIRMWARE DEVELOPER Ot F17.290 NICOTINE DEPENDENCE, OTHER TOBACCO PRODU 08/03/2019 JAEL RICE APRN Ot F20 .9 SCHIZOPHRENIA, UNSPECIFIED 08/03/2019 JAEL RICE APRN Ot F31 .9 BIPOLAR DISORDER, UNSPECIFIED 08/03/2019 JAEL RICE APRN Ot F41 .9 ANXIETY DISORDER, UNSPECIFIED 08/03/2019 JAEL RICE APRN Ot F60 .9 PERSONALITY DISORDER, UNSPECIFIED 08/03/2019 JAEL RICE APRN Ot J45.909 UNSPECIFIED ASTHMA, UNCOMPLICATED 08/03/2019 JAEL RICE APRN Ot R11 .2 NAUSEA WITH VOMITING, UNSPECIFIED 08/03/2019 JAEL RICE APRN Ot R42 DIZZINESS AND GIDDINESS 08/03/2019 JAEL RICE APRN Ot Z86.73 PRSNL HX OF TIA (TIA), AND CEREB INFRC W 08/03/2019 JAEL RICE APRN Ot Z90.49 ACQUIRED ABSENCE OF OTHER SPECIFIED PART 09/29/2019 KAVITHA LIU Ot I10 ESSENTIAL (PRIMARY) HYPERTENSION 09/29/2019 KAVITHA LIU Ot R06.02 SHORTNESS OF BREATH 09/29/2019 KAVITHA LIU Ot R07.9 CHEST PAIN, UNSPECIFIED 09/29/2019 KAVITHA LIU Ot R55 SYNCOPE AND COLLAPSE 10/03/2019 KAVITHA LIU Ot I10 ESSENTIAL (PRIMARY) HYPERTENSION 10/03/2019 KAVITHA LIU Ot R06.02 SHORTNESS OF BREATH 10/03/2019 KAVITHA LIU Ot R07.9 CHEST PAIN, UNSPECIFIED 10/03/2019 KAVITHA LIU Ot R55 SYNCOPE AND COLLAPSE Procedures Code Description [place] [address] PSYC H PHARM MGMT 06/29/2012 01586 ROUT INE VENIPUNCTURE 11/25/20138148036 GF R CALC (RESULT ONLY) 11/25/2013 15206 CMP 11/25/2013 74673 LIPI D PANEL 11/25/2013 41549 CBC 11/25/2013 73473 TSH 11/25/2013 Results Test Result Range Complete blood count (CBC) with automate d white blood cell (WBC) differential - 03/09/16 21:20 Blood leukocytes automated count (number/volume) 13.3 10*3/uL 4.3-11.0 Blood erythrocytes automated count (number/volume) 5.03 10*6/uL 4.35-5.85 Venous blood hemoglobin measurement (mass/volume) 15.4 g/dL 13.3-17.7 Blood hematocrit (volume fraction) 42 % 40-54 Automated erythrocyte mean corpuscular volume 83 [ foz_us] 80-99 Automated erythrocyte mean corpuscular h emoglobin (mass per erythrocyte) 31 pg 25-34 Automated erythrocyte mean corpuscular h emoglobin concentration measurement (mass/volume) 37 g/dL 32-36 Automated erythrocyte distribution width ratio 13. 4 % 10.0- 14.5 Automated blood platelet count (count/volume) 222 10*3/uL 130-400 Automated blood platelet mean volume measurement 10.0 [foz_us] 7.4-10.4 Automated blood neutrophils/100 leukocytes 57 % 42-75 Automated blood lymphocytes/100 leukocytes 34 % 12-44 Blood monocytes/100 leukocytes 7 % 0-12 Automated blood eosinophils/100 leukocytes 1 % 0-10 Automated blood basophils/100 leukocytes 1 % 0-10 Blood neutrophils automated count (number/volume) 7.6 10*3 1.8-7.8 Blood lymphocytes automated count (number/volume) 4.4 10*3 1.0-4.0 Blood monocytes automated count (number/volume) 1. 0 10*3 0.0-1.0 Automated eosinophil count 0.2 10*3/uL 0 .0-0.3 Automated blood basophil count (count/volume) 0.1 10*3/uL 0.0-0.1 CBC With Differential/Platelet - 7 14:55 WBC 10.9 x10E3/uL 3.4-10.8 RBC 4.86 x10E6/uL 4.14-5.80 Hemoglobin 14.7 g/dL 12.6-17.7 Hematocrit 42.6 % 37.5-51.0 MCV 88 fL 79-97 MCH 30.2 pg 26.6-33.0 MCHC 34.5 g/dL 31.5-35.7 RDW 14.1 % 12.3-15.4 Platelets 199 x10E3/uL 150-379 Neutrophils 62 % Lymphs 30 % Monocytes 5 % Eos 2 % Basos 1 % Neutrophils (Absolute) 6.7 x10E3/uL 1.4- 7.0 Lymphs (Absolute) 3.3 x10E3/uL 0.7-3.1 Monocytes(Absolute) 0.5 x10E3/uL 0.1-0.9 Eos (Absolute) 0.2 x10E3/uL 0.0-0.4 Baso (Absolute) 0.1 x10E3/uL 0.0-0.2 Immature Granulocytes 0 % Immature Grans (Abs) 0.0 x10E3/uL 0.0-0. 1 Comp. Metabolic Panel (14) - 12/19/16 14 :55 Glucose, Serum 83 mg/dL 65-99 BUN 12 mg/dL 6-20 Creatinine, Serum 1.10 mg/dL 0.76-1.27 eGFR If NonAfricn Am 88 mL/min/1.73 >59 eGFR If Africn Am 102 mL/min/1.73 >5 9 BUN/Creatinine Ratio 11 9-20 Sodium, Serum 143 mmol/L 134-144 Potassium, Serum 4.4 mmol/L 3.5-5.2 Chloride, Serum 104 mmol/L 96-106 Carbon Dioxide, Total 23 mmol/L 18-29 Calcium, Serum 9.7 mg/dL 8.7-10.2 Protein, Total, Serum 7.1 g/dL 6.0-8.5 Albumin, Serum 4.6 g/dL 3.5-5.5 Globulin, Total 2.5 g/dL 1.5-4.5 A/G Ratio 1.8 1.2-2.2 Bilirubin, Total 0.7 mg/dL 0.0-1.2 Alkaline Phosphatase, S 52 IU/L 39-117 AST (SGOT) 32 IU/L 0-40 ALT (SGPT) 59 IU/L 0-44 Lipid Panel - 12/19/16 14:55 Cholesterol, Total 131 mg/dL 100-199 Triglycerides 299 mg/dL 0-149 HDL Cholesterol 24 mg/dL >39 VLDL Cholesterol Tommy 60 mg/dL 5-40 LDL Cholesterol Calc 47 mg/dL 0-99 Hemoglobin A1c - 12/19/16 14:55 Hemoglobin A1c 5.0 % 4.8-5.6 Thyroid [place] Profile - 12/19/16 14:55 TSH 1.030 uIU/mL 0.450-4.500 Insulin - 12/19/16 14:55 Insulin 15.1 uIU/mL 2.6-24.9 CULTURE, URINE - 10/07/17 11:59 CULTURE, URINE, ROUTINE SEE NOTE NRG TESTOSTERONE, TOTAL - 12/17/17 08:11 TESTOSTERONE, TOTAL, MALES (ADULT), IA 348 ng/dL 250-827 LIPID PANEL - 10/07/18 14:59 CHOLESTEROL, TOTAL 123 mg/dL <200 HDL CHOLESTEROL 26 mg/dL >40 TRIGLYCERIDES 197 mg/dL <150 LDL-CHOLESTEROL 70 mg/dL (calc) NRG CHOL/HDLC RATIO 4.7 (calc) <5.0 NON HDL CHOLESTEROL 97 mg/dL (calc) <130 CMP - 10/07/18 14:59 GLUCOSE 94 mg/dL 65-139 UREA NITROGEN (BUN) 14 mg/dL 7-25 CREATININE 1.09 mg/dL 0.60-1.35 eGFR NON-AFR. [place] 88 mL/min/1.73m2 > OR = 60 eGFR 102 mL/min/1.73m2 > OR = 60 BUN/CREATININE RATIO NOT APPLICABLE (calc) 6-22 SODIUM 142 mmol/L 135-146 POTASSIUM 3.8 mmol/L 3.5-5.3 CHLORIDE 108 mmol/L 98-110 CARBON DIOXIDE 27 mmol/L 20-32 CALCIUM 9.4 mg/dL 8.6-10.3 PROTEIN, TOTAL 6.7 g/dL 6.1-8.1 ALBUMIN 4.5 g/dL 3.6-5.1 GLOBULIN 2.2 g/dL (calc) 1.9-3.7 ALBUMIN/GLOBULIN RATIO 2.0 (calc) 1.0-2. 5 BILIRUBIN, TOTAL 0.6 mg/dL 0.2-1.2 ALKALINE PHOSPHATASE 49 U/L 40-115 AST 20 U/L 10-40 ALT 34 U/L 9-46 CBC - 10/07/18 14:59 WHITE BLOOD CELL COUNT 8.6 Thousand/uL 3 .8-10.8 RED BLOOD CELL COUNT 5.09 Million/uL 4.2 0-5.80 HEMOGLOBIN 15.6 g/dL 13.2-17.1 HEMATOCRIT 44.7 % 38.5-50.0 MCV 87.8 fL 80.0-100.0 MCH 30.6 pg 27.0-33.0 MCHC 34.9 g/dL 32.0-36.0 RDW 13.1 % 11.0-15.0 PLATELET COUNT 238 Thousand/uL 140-400 MPV 10.0 fL 7.5-12.5 ABSOLUTE NEUTROPHILS 4730 cells/uL 1500- 7800 ABSOLUTE LYMPHOCYTES 3234 cells/uL 850-3 900 ABSOLUTE MONOCYTES 490 cells/uL 200-950 ABSOLUTE EOSINOPHILS 77 cells/uL 15-500 ABSOLUTE BASOPHILS 69 cells/uL 0-200 NEUTROPHILS 55 % NRG LYMPHOCYTES 37.6 % NRG MONOCYTES 5.7 % NRG EOSINOPHILS 0.9 % NRG BASOPHILS 0.8 % NRG TSH - 10/07/18 14:59 TSH 1.60 mIU/L 0.40-4.50 A1C - 10/07/18 14:59 HEMOGLOBIN A1c 4.5 % of total Hgb <5.7 BMP - 01/15/19 15:49 GLUCOSE 90 mg/dL 65-99 UREA NITROGEN (BUN) 16 mg/dL 7-25 CREATININE 1.11 mg/dL 0.60-1.35 eGFR NON-AFR. [place] 86 mL/min/1.73m2 > OR = 60 eGFR 100 mL/min/1.73m2 > OR = 60 BUN/CREATININE RATIO NOT APPLICABLE (calc) 6-22 SODIUM 142 mmol/L 135-146 POTASSIUM 4.0 mmol/L 3.5-5.3 CHLORIDE 108 mmol/L 98-110 CARBON DIOXIDE 28 mmol/L 20-32 CALCIUM 9.5 mg/dL 8.6-10.3 Complete urinalysis with reflex to cultu re - 02/13/19 17:19 Urine color determination YELLOW NRG Urine clarity determination CLEAR NR G Urine pH measurement by test strip 5 5-9 Specific gravity of urine by test strip 1.030 1.016-1.022 Urine protein assay by test strip, semi-quantitative 2+ NEGATIVE Urine glucose detection by automated test strip NE GATIVE NEGATIVE Erythrocytes detection in urine sediment by light micr oscopy NEGATIVE NEGATIVE Urine ketones detection by automated test strip 1+ NEGATIVE Urine nitrite detection by test strip NEGATIVE NEGATIVE Urine total bilirubin detection by test strip 1+ NEGATIVE Urine urobilinogen measurement by automated test strip (mass/volume) 1 mg/dL NORMAL Urine leukocyte esterase detection by dipstick 1+ NEGATIVE Automated urine sediment erythrocyte cou nt by microscopy (number/high power field) NONE NRG Automated urine sediment leukocyte count by microscopy (number/high power field) RARE NRG Bacteria detection in urine sediment by light microsco py TRACE NRG Squamous epithelial cells detection in u rine sediment by light microscopy RARE NRG Crystals detection in urine sediment by light microsco py PRESENT NRG Casts detection in urine sediment by light microscopy NONE NRG Mucus detection in urine sediment by light microscopy MODERATE NRG Complete urinalysis with reflex to culture NO NRG Calcium oxalate crystals detection in ur ine sediment by light microscopy FEW NRG Urine drug screening test - 02/13/19 17: 19 Urine phencyclidine detection by screening method NEGATIVE NEGATIVE Urine benzodiazepines detection by screening method NEGATIVE NEGATIVE Urine cocaine detection NEGATIVE NEGATI VE Urine amphetamines detection by screening method N EGATIVE NEGATIVE Urine methamphetamine detection by screening method NEGATIVE NEGATIVE Urine cannabinoids detection by screening method P OSITIVE NEGATIVE Urine opiates detection by screening method NEGATI VE NEGATIVE Urine barbiturates detection NEGATIVE N EGATIVE Screening urine tricyclic antidepressants detection NEGATIVE NEGATIVE Urine methadone detection by screening method NEGA TIVE NEGATIVE Urine oxycodone detection NEGATIVE NEGA TIVE Urine propoxyphene detection NEGATIVE N EGATIVE Complete blood count (CBC) with automate d white blood cell (WBC) differential - 02/13/19 17:34 Blood leukocytes automated count (number/volume) 10.6 10*3/uL 4.3-11.0 Blood erythrocytes automated count (number/volume) 5.05 10*6/uL 4.35-5.85 Venous blood hemoglobin measurement (mass/volume) 15.3 g/dL 13.3-17.7 Blood hematocrit (volume fraction) 43 % 40-54 Automated erythrocyte mean corpuscular volume 85 [ foz_us] 80-99 Automated erythrocyte mean corpuscular h emoglobin (mass per erythrocyte) 30 pg 25-34 Automated erythrocyte mean corpuscular h emoglobin concentration measurement (mass/volume) 36 g/dL 32-36 Automated erythrocyte distribution width ratio 14. 0 % 10.0- 14.5 Automated blood platelet count (count/volume) 191 10*3/uL 130-400 Automated blood platelet mean volume measurement 10.0 [foz_us] 7.4-10.4 Automated blood neutrophils/100 leukocytes 70 % 42-75 Automated blood lymphocytes/100 leukocytes 23 % 12-44 Blood monocytes/100 leukocytes 6 % 0-12 Automated blood eosinophils/100 leukocytes 1 % 0-10 Automated blood basophils/100 leukocytes 1 % 0-10 Blood neutrophils automated count (number/volume) 7.5 10*3 1.8-7.8 Blood lymphocytes automated count (number/volume) 2.5 10*3 1.0-4.0 Blood monocytes automated count (number/volume) 0. 6 10*3 0.0-1.0 Automated eosinophil count 0.1 10*3/uL 0 .0-0.3 Automated blood basophil count (count/volume) 0.1 10*3/uL 0.0-0.1 Comprehensive metabolic panel - 02/13/19 17:34 Serum or plasma sodium measurement (moles/volume) 142 mmol/L 135-145 Serum or plasma potassium measurement (moles/volume) 3.6 mmol/L 3.6-5.0 Serum or plasma chloride measurement (moles/volume) 112 mmol/L 98-107 Carbon dioxide 20 mmol/L 21-32 Serum or plasma anion gap determination (moles/volume) 10 mmol/L 5-14 Serum or plasma urea nitrogen measurement (mass/volume ) 14 mg/dL 7-18 Serum or plasma creatinine measurement (mass/volume) 0.98 mg/dL 0.60-1.30 Serum or plasma urea nitrogen/creatinine mass ratio 14 NRG Serum or plasma creatinine measurement w ith calculation of estimated glomerular filtration rate > NRG Serum or plasma glucose measurement (mass/volume) 106 mg/dL 70-105 Serum or plasma calcium measurement (mass/volume) 9.4 mg/dL 8.5-10.1 Serum or plasma total bilirubin measurement (mass/volu me) 0.5 mg/dL 0.1-1.0 Serum or plasma alkaline phosphatase candice surement (enzymatic activity/volume) 49 U/L 40-136 Serum or plasma aspartate aminotransfera se measurement (enzymatic activity/volume) 33 U/L 5-34 Serum or plasma alanine aminotransferase measurement (enzymatic activity/volume) 60 U/L 0-55 Serum or plasma protein measurement (mass/volume) 7.1 g/dL 6.4-8.2 Serum or plasma albumin measurement (mass/volume) 4.5 g/dL 3.2-4.5 CALCIUM CORRECTED 9.0 mg/dL 8.5-10.1 Serum or plasma salicylates measurement (mass/volume) - 02/13/19 17:34 Serum or plasma salicylates measurement (mass/volume) < mg/dL 5.0-20.0 Serum or plasma acetaminophen measuremen t (mass/volume) - 02/13/19 17:34 Serum or plasma acetaminophen measurement (mass/volume ) < ug/mL 10-30 Serum or plasma ethanol measurement (mas s/volume) - 02/13/19 17:34 Serum or plasma ethanol measurement (mass/volume) < mg/dL <10 Complete blood count (CBC) with automate d white blood cell (WBC) differential - 07/31/19 14:15 Blood leukocytes automated count (number/volume) 10.5 10*3/uL 4.3-11.0 Blood erythrocytes automated count (number/volume) 5.52 10*6/uL 4.35-5.85 Venous blood hemoglobin measurement (mass/volume) 16.4 g/dL 13.3-17.7 Blood hematocrit (volume fraction) 45 % 40-54 Automated erythrocyte mean corpuscular volume 82 [ foz_us] 80-99 Automated erythrocyte mean corpuscular h emoglobin (mass per erythrocyte) 30 pg 25-34 Automated erythrocyte mean corpuscular h emoglobin concentration measurement (mass/volume) 36 g/dL 32-36 Automated erythrocyte distribution width ratio 13. 7 % 10.0- 14.5 Automated blood platelet count (count/volume) 194 10*3/uL 130-400 Automated blood platelet mean volume measurement 10.2 [foz_us] 7.4-10.4 Automated blood neutrophils/100 leukocytes 79 % 42-75 Automated blood lymphocytes/100 leukocytes 13 % 12-44 Blood monocytes/100 leukocytes 8 % 0-12 Automated blood eosinophils/100 leukocytes 0 % 0-10 Automated blood basophils/100 leukocytes 0 % 0-10 Blood neutrophils automated count (number/volume) 8.3 10*3 1.8-7.8 Blood lymphocytes automated count (number/volume) 1.4 10*3 1.0-4.0 Blood monocytes automated count (number/volume) 0. 8 10*3 0.0-1.0 Automated eosinophil count 0.0 10*3/uL 0 .0-0.3 Automated blood basophil count (count/volume) 0.0 10*3/uL 0.0-0.1 Comprehensive metabolic panel - 12/28/19 14:15 Serum or plasma sodium measurement (moles/volume) 138 mmol/L 135-145 Serum or plasma potassium measurement (moles/volume) 3.9 mmol/L 3.6-5.0 Serum or plasma chloride measurement (moles/volume) 105 mmol/L 98-107 Carbon dioxide 21 mmol/L 21-32 Serum or plasma anion gap determination (moles/volume) 12 mmol/L 5-14 Serum or plasma urea nitrogen measurement (mass/volume ) 17 mg/dL 7-18 Serum or plasma creatinine measurement (mass/volume) 1.13 mg/dL 0.60-1.30 Serum or plasma urea nitrogen/creatinine mass ratio 15 NRG Serum or plasma creatinine measurement w ith calculation of estimated glomerular filtration rate > NRG Serum or plasma glucose measurement (mass/volume) 90 mg/dL 70-105 Serum or plasma calcium measurement (mass/volume) 9.3 mg/dL 8.5-10.1 Serum or plasma total bilirubin measurement (mass/volu me) 0.9 mg/dL 0.1-1.0 Serum or plasma alkaline phosphatase candice surement (enzymatic activity/volume) 47 U/L 40-136 Serum or plasma aspartate aminotransfera se measurement (enzymatic activity/volume) 18 U/L 5-34 Serum or plasma alanine aminotransferase measurement (enzymatic activity/volume) 37 U/L 0-55 Serum or plasma protein measurement (mass/volume) 7.4 g/dL 6.4-8.2 Serum or plasma albumin measurement (mass/volume) 4.4 g/dL 3.2-4.5 CALCIUM CORRECTED 9.0 mg/dL 8.5-10.1 Fibrin D-dimer FEU measurement in platel et poor plasma (mass/volume) - 07/31/19 14:15 Fibrin D-dimer FEU measurement in platelet poor plasma (mass/volume) < ug/mL 0.00-0.49 Encounters ACCT No. Visit Date/Time Discharge Status Pt. Type Provider Facility Loc./Unit Complaint [id number] 12/20/2016 12:09:00 Document Registration [id number] 10/12/2019 13:00:00 10/12/2019 23:59:[address] [facility] [id number] 01/15/2019 14:40:00 Document Registration [id number] 10/07/2018 14:00:00 Document Registration [id number] 12/17/2017 08:20:00 Document Registration [id number] 10/07/2017 10:45:00 Document Registration [id number] 09/27/2019 14:42:00 23:59:59 CLS Outpatient MARIA DEL CARMEN LIU [facility] CARD HYPERTENSIO N [id number] 08/23/2019 10:24:00 23:59:59 CLS Outpatient ZBIGNIEW VILLEGAS MD [facility] CARD HYPERTENSION [id number] 07/31/2019 12:29:00 15:16:00 DIS Outpatient JAEL RICE APRN [facility] ER LIGHT HEADED / DIZZY [id number] 02/13/2019 16:46:00 019 20:44:00 DIS Emergency JAEL RICE APRN [facility] ER SUICIDAL [id number] 04/25/2016 20:19:00 016 21:20:00 DIS Emergency JAEL RICE APRN [facility] ER CHEST PAIN [id number] 03/09/2016 21:16:00 016 22:15:00 DIS Emergency JAEL RICE APRN [facility] ER MIGRAINE/NAUSEA [id number] 08/21/2015 19:15:00 016 19:56:00 DIS Emergency JAEL RICE APRN [facility] ER R RIB AND BACK PAIN;SOA [id number] 07/10/2015 14:41:00 015 23:59:59 CLS Outpatient COLTHARP DO, CALVIN A [facility] QUICK [id number] 10/21/2013 06:50:00 014 08:49:00 DIS Emergency SERGIO SUNG MD [facility] ER [id number] 09/28/2013 09:19:00 014 10:57:00 DIS Emergency JANES ORTEGA MD [facility] ER [id number] 01/01/2013 02:13:00 013 03:15:00 DIS Emergency ELISE GARDINER, HEIDI Greco [facility] ER [id number] 12/25/2012 12:32:00 013 14:45:00 DIS Emergency KARI GARDINER, GET R [facility] ER [id number] 10/21/2014 11:56:00 Document Registration [id number] 01/12/2011 10:52:00 Document Registration [id number] 09/28/2014 12:58:00 09/28/2014 23:59: 59 CLS Outpatient TARYN ROME [id number] 07/12/2014 08:44:00 07/12/2014 23:59: 59 CLS Outpatient JOSE BALES MD [id number] 01/31/2014 11:31:00 01/31/2014 23:59: 59 CLS Outpatient RODNEY ALVAREZ APRN [id number] 12/20/2013 13:54:00 12/20/2013 23:59: 59 CLS Outpatient RODNEY ALVAREZ APRN [id number] 11/25/2013 10:57:00 11/25/2013 23:59: 59 CLS Outpatient RODNEY ALVAREZ APRN [id number] 06/25/2013 09:50:00 06/25/2013 23:59: 59 CLS Outpatient RODNEY ALVAREZ APRN [id number] 03/29/2013 13:47:00 03/29/2013 23:59: 59 CLS Outpatient SAYRA HERRERA DO [id number] 06/24/2012 13:40:00 06/24/2012 23:59: 59 CLS Outpatient [id number] 06/24/2012 13:40:00 06/24/2012 23:59:5 9 CLS Outpatient
[2019-11-27] MEDS ORDERED: BENZONATATE 100 MG (TESSALON) CAPSULE PO ONE (07:15)
[2019-11-27] MEDS ORDERED: HYDROcodone/APAP 5 MG/325 MG (LORTAB) TAB PO ONE (07:15)
[2019-11-27 07:23] LABS: BASOPHILS # (AUTO) 0.1 10^3/uL (0.0-0.1); BASOPHILS % (AUTO) 1 % (0-10); EOSINOPHILS # (AUTO) 0.1 10^3/uL (0.0-0.3); EOSINOPHILS % (AUTO) 1 % (0-10); HEMATOCRIT 45 % (40-54); HEMOGLOBIN 16.1 G/DL (13.3-17.7); LYMPHOCYTES # (AUTO) 6.6 X 10^3 (1.0-4.0); LYMPHOCYTES % (AUTO) 38 % (12-44); MEAN CORPUSCULAR HEMOGLOBIN 30 PG (25-34); MEAN CORPUSCULAR HGB CONC 36 G/DL (32-36); MEAN CORPUSCULAR VOLUME 82 FL (80-99); MONOCYTES # (AUTO) 1.3 X 10^3 (0.0-1.0); MONOCYTES % (AUTO) 8 % (0-12); NEUTROPHILS # (AUTO) 9.2 X 10^3 (1.8-7.8); NEUTROPHILS % (AUTO) 53 % (42-75); PLATELET COUNT 266 10^3/uL (130-400); RED CELL DISTRIBUTION WIDTH 13.9 % (10.0-14.5); WHITE BLOOD COUNT 17.2 10^3/uL (4.3-11.0)
--- NOTE | 2019-11-27 07:31 | NUR ---
COVID SWAB AT 0710.
--- NOTE | 2019-11-27 07:33 | ED Cough/URI ---
General Chief Complaint: Cough/Cold/Flu Symptoms Stated Complaint: COUGH Nursing Triage Note: PT CO OF COUGHING FOR APPROX 4 DAYS HAS RECENT HX OF BRONCHITIS. DENIES FEVER. STATES O2 SAT AT HOME 92% AT TIMES. CO OF PAIN FROM COUGHING RIBS,BACK AND GROIN STATES SIP UP BLOOD ONCE. Sepsis Screen: No Definite Risk Source: patient Exam Limitations: no limitations History of Present Illness Date Seen by Provider: Nov 27, 2019 Time Seen by Provider: 06:50 Initial Comments This 34-year-old man presents to the emergency room complaining of severe cough. It is not very productive. He has been ill for up to 2 weeks but has had a more severe cough for 45 days. He presented to the [facility] clinic where he was prescribed prednisone. He took the last dose yesterday. No testing was performed there. He denies any known exposures to coronavirus or persons under investigation. However, he lives with multiple family members who work with vulnerable populations. He smells of smoke but denies any smoking. He reports secondhand smoke and marijuana exposure from family members. He is now having pain in the chest, upper abdomen, and left groin from coughing. He denies any fevers. He has been trying multiple jntw-uwq-oppgeay medications without improvement in his cough. He reports one episode of hematemesis in which she coughed up bloody mucus up onto his cat. He reports premature with suspected cardiac problems. He has no specific cardiac diagnosis but intends to follow with a roll machine operator. He has been using his inhaler at home without much improvement. Patient's primary complaint today is that cough is prohibiting him from sleeping. Allergies and Home Medications Allergies Coded Allergies: No Known Drug Allergies (Unverified , 12/19/08) Home Medications Albuterol Sulfate 1 Puff Puff, 2 PUFF IH Q4H PRN for WHEEZING 1 PUFF = 90 MCG Prescribed by: JANES GOLD on 11/27/19830 Benzonatate 100 Mg Capsule, 200 MG PO TID PRN for COUGH Prescribed by: JANES GOLD on 11/27/19813 Hydrocodone/Acetaminophen 1 Each Tablet, 1 EACH PO Q4H PRN for COUGH For unrelenting cough or pain not controlled by iujk-lbh-yvmhblh medications Prescribed by: JANES GOLD on 4/25/20 0814 Metformin HCl 500 Mg Tab.er.24h, 500 MG PO BID, (Reported) Simvastatin 10 Mg Tablet, 10 MG PO HS, (Reported) Patient Home Medication List Home Medication List Reviewed: Yes Review of Systems Review of Systems Constitutional: no symptoms reported EENTM: no symptoms reported Respiratory: see HPI Cardiovascular: no symptoms reported Gastrointestinal: see HPI Genitourinary: no symptoms reported Musculoskeletal: see HPI Skin: no symptoms reported Psychiatric/Neurological: No Symptoms Reported Hematologic/Lymphatic: See HPI Immunological/Allergic: no symptoms reported Past Gzdqkfs-Lqpyjw-Dntssq Hx Past Med/Social Hx: Reviewed Nursing Past Med/Soc Hx Patient Social History Alcohol Use: Denies Use Recreational Drug Use: No Smoking Status: Never a Smoker Type Used: Electronic/Vapor Recent Foreign Travel: No Contact w/Someone Who Travel: No Recent Infectious Disease Expo: No Recent Hopitalizations: No Physical Abuse: No Sexual Abuse: No Seasonal Allergies Seasonal Allergies: No Past Medical History Surgeries: Yes (appendectomy) Appendectomy, Orthopedic Respiratory: Yes ( CHILD) Asthma Currently Using CPAP: No Currently Using BIPAP: No Cardiac: No 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 oz. 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, no motor/sensory deficits, alert, normal mood/affect, oriented x 3 Skin: normal color, warm/dry Progress/Results/Core Measures Suspected Sepsis Recent Fever Within 48 Hours: No Infection Criteria Present: None New/Unexplained Altered Menta: No Sepsis Screen: No Definite Risk SIRS Temperature: Pulse: 87 Respiratory Rate: 18 Laboratory Tests 11/27/19 07:10: White Blood Count 17.2H Blood Pressure 108 /61 Mean: 77 Laboratory Tests 11/27/19 07:10: Creatinine 1.03, Platelet Count 266, Total Bilirubin 0.6 Results/Orders Lab Results Laboratory Tests Test 11/27/19 07:10 Range/Units White Blood Count 17.2 H 4.3-11.0 10^3/uL Red Blood Count 5.42 4.35-5.85 10^6/uL Hemoglobin 16.1 13.3-17.7 G/DL Hematocrit 45 40-54 % Mean Corpuscular Volume 82 80-99 FL Mean Corpuscular Hemoglobin 30 25-34 PG Mean Corpuscular Hemoglobin Concent 36 32-36 G/DL Red Cell Distribution Width 13.9 10.0-14.5 % Platelet Count 266 130-400 10^3/uL Mean Platelet Volume 10.0 7.4-10.4 FL Neutrophils (%) (Auto) 53 42-75 % Lymphocytes (%) (Auto) 38 12-44 % Monocytes (%) (Auto) 8 0-12 % Eosinophils (%) (Auto) 1 0-10 % Basophils (%) (Auto) 1 0-10 % Neutrophils # (Auto) 9.2 H 1.8-7.8 X 10^3 Lymphocytes # (Auto) 6.6 H 1.0-4.0 X 10^3 Monocytes # (Auto) 1.3 H 0.0-1.0 X 10^3 Eosinophils # (Auto) 0.1 0.0-0.3 10^3/uL Basophils # (Auto) 0.1 0.0-0.1 10^3/uL Neutrophils % (Manual) 57 % Lymphocytes % (Manual) 36 % Monocytes % (Manual) 6 % Eosinophils % (Manual) 1 % Blood Morphology Comment NORMAL D-Dimer < 0.27 0.00-0.49 UG/ML Sodium Level 141 135-145 MMOL/L Potassium Level 3.5 L 3.6-5.0 MMOL/L Chloride Level 108 H 98-107 MMOL/L Carbon Dioxide Level 20 L 21-32 MMOL/L Anion Gap 13 5-14 MMOL/L Blood Urea Nitrogen 20 H 7-18 MG/DL Creatinine 1.03 0.60-1.30 MG/DL Estimat Glomerular Filtration Rate > 60 BUN/Creatinine Ratio 19 Glucose Level 92 70-105 MG/DL Calcium Level 9.2 8.5-10.1 MG/DL Corrected Calcium 8.9 8.5-10.1 MG/DL Total Bilirubin 0.6 0.1-1.0 MG/DL Aspartate Amino Transf (AST/SGOT) 31 5-34 U/L Alanine Aminotransferase (ALT/SGPT) 39 0-55 U/L Alkaline Phosphatase 41 40-136 U/L Lactate Dehydrogenase 207 125-220 U/L C-Reactive Protein High Sensitivity 0.16 0.00-0.50 MG/DL B-Type Natriuretic Peptide 40.0 <100.0 PG/ML Total Protein 7.3 6.4-8.2 GM/DL Albumin 4.4 3.2-4.5 GM/DL Procalcitonin 0.04 <0.10 NG/ML Micro Results Microbiology 11/27/19 Influenza Types A,B Antigen (SAMUEL) - Final, Complete My Orders Orders - JANES ORTEGA MD Hydrocodone/Apap 5/325 Tablet (Lortab 5 (11/27/19 07:15) Benzonatate Capsule (Tessalon Perles) (11/27/19 07:15) Cbc With Automated Diff (11/27/19 07:08) Comprehensive Metabolic Panel (11/27/19 07:08) Fibrin Degradation Products (11/27/19 07:08) Procalcitonin (Pct) (11/27/19 07:08) Hs C Reactive Protein (11/27/19 07:08) LDH (11/27/19 07:08) Influenza A And B Antigens (11/27/19 07:08) Coronavirus Sars-Cov-2 So 2018 (11/27/19 07:08) Chest 1 View, Ap/Pa Only (11/27/19 07:08) BNP (11/27/19 07:14) Manual Differential (11/27/19 07:10) Medications Given in ED Current Medications Medications Dose Ordered Sig/Enmanuel Route Start Time Stop Time Status Last Admin Dose Admin Acetaminophen/ Hydrocodone Bitart 1 tab ONCE ONCE PO 11/27/19 07:15 11/27/19 07:16 DC 11/27/19 07:20 1 TAB Benzonatate 200 mg ONCE ONCE PO 11/27/19 07:15 11/27/19 07:16 DC 11/27/19 07:34 200 MG Vital Signs/I&O 11/27/19 11/27/19 11/27/19 06:54 06:54 08:25 Temp 37.1 37.1 Pulse 87 87 Resp 18 18 B/P (MAP) 108/61 (77) 108/61 (77) Pulse Ox 99 99 O2 Delivery Room Air Room Air Capillary Refill : Less Than 3 Seconds Blood Pressure Mean: 77 Progress Note : Progress Note Patient was seen and examined. Workup was unremarkable. Cough was treated with hydrocodone and Tessalon Perles. See discharge instructions for further discussion. Diagnostic Imaging Diagonstic Imaging: Xray Plain Films/CT/US/NM/MRI: chest Comments Chest x-ray viewed by me and report reviewed. See report below: NAME: BRANDON HEALY MED REC#: [id number] PT STATUS: REG ER : 1985 PHYSICIAN: JANES ORTEGA MD ADMIT DATE: 11/27/19/ER Signed Date of Exam:11/27/19 CHEST 1 VIEW, AP/PA ONLY Indication: Cough and congestion. Compared: 07/31 Findings: Lungs clear. Heart and vessels normal. No failure, effusion or pneumothorax. Impression: No acute-appearing abnormality. Dictated by: Dictated on workstation # [id number] Dict: 11/27/19 0747 Trans: 11/27/19 0834 [facility] [id number] Interpreted by: INOCENTE PERERA Electronically signed by: INOCENTE PERERA 11/27/19 0834 Departure Impression Primary Impression: Acute bronchitis Qualified Codes: J20.9 - Acute bronchitis, unspecified Additional Impressions: Persistent cough Left groin pain Disposition: 01 HOME, SELF-CARE Condition: Stable Departure-Patient Inst. Decision time for Depature: 08:11 Referrals: [facility] (PCP/Family) Primary Care Physician Patient Instructions: Acute Bronchitis Add. Discharge Instructions: Avoid any inhaled irritants such as dust, cigarette smoke or marijuana smoke. You may use Tessalon Perles and hydrocodone as prescribed for cough suppression. Hydrocodone may also be used for pain. Return to the ER or follow up with your primary care provider if left groin pain persists or worsens. No hernia was felt on your exam today but this issue should not be ignored if it persists. Home isolate until your respiratory symptoms have resolved and you are free of fever or chills for at least 72 hours. All of your close contacts and household members need to notify their employers they have been in contact with a person under investigation for [place] virus. They should follow company guidelines and health department guidelines accordingly. Use your inhaler as previously directed for wheezing or shortness of breath. Call the emergency room or return to care if you have worsening symptoms despite these measures. All discharge instructions reviewed with patient and/or family. Voiced understanding. Scripts Albuterol Sulfate (PROAIR HFA) 1 Puff Puff 2 PUFF IH Q4H PRN for WHEEZING, #1 PUFF 1 PUFF = 90 MCG Prov: JANES ORTEGA MD 11/27/19 Hydrocodone/Acetaminophen (Hydrocodone-Acetamin 5-325 mg) 1 Each Tablet 1 EACH PO Q4H PRN for COUGH, #12 TAB For unrelenting cough or pain not controlled by qhuo-axo-oiwhakw medications Prov: JANES ORTEGA MD 11/27/19 Benzonatate (TESSALON PERLES) 100 Mg Capsule 200 MG PO TID PRN for COUGH, #20 CAP Prov: JANES ORTEGA MD 11/27/19 Copy Copies To 1: JUANITA KRISHNAMURTHY JOSHUA T MD Nov 27, 2019 07:33
[2019-11-27 07:35] LABS: ALBUMIN 4.4 GM/DL (3.2-4.5); CHLORIDE 108 MMOL/L (98-107); POTASSIUM 3.5 MMOL/L (3.6-5.0); SODIUM 141 MMOL/L (135-145)
[2019-11-27 07:36] LABS: CALCIUM 9.2 MG/DL (8.5-10.1)
[2019-11-27 07:37] LABS: GLUCOSE 92 MG/DL (70-105); TOTAL PROTEIN 7.3 GM/DL (6.4-8.2)
[2019-11-27 07:39] LABS: BILIRUBIN,TOTAL 0.6 MG/DL (0.1-1.0); CARBON DIOXIDE 20 MMOL/L (21-32)
[2019-11-27 07:41] LABS: ALKALINE PHOSPHATASE 41 U/L (40-136); CREATININE SERUM 1.03 MG/DL (0.60-1.30); GFR ESTIMATED > 60
[2019-11-27 07:42] LABS: BUN/CREATININE RATIO 19
[2019-11-27 07:43] LABS: EOSINOPHILS % (MANUAL) 1 %; LYMPHOCYTES % (MANUAL) 36 %; MONOCYTES % (MANUAL) 6 %; NEUTROPHILS % (MANUAL) 57 %; RBC MORPH NORMAL
[2019-11-27 07:44] LABS: ALANINE AMINOTRANSFERASE 39 U/L (0-55)
--- NOTE | 2019-11-27 07:53 | Diagnostic Imaging Report ---
Indication: Cough and congestion. Compared: 07/31 Findings: Lungs clear. Heart and vessels normal. No failure, effusion or pneumothorax. Impression: No acute-appearing abnormality. Dictated by: Dictated on workstation # [id number]
[2019-11-27] MEDS ORDERED: HYDR-83 PO (08:14)
[2019-11-27] MEDS ORDERED: BENZ100C18 PO (08:14)
[2019-11-27 08:25] VITALS: BP 108/61
[2019-11-27] MEDS ORDERED: RT-ALBUINH IH (08:31)
--- NOTE | 2019-11-27 08:32 | NUR ---
[facility] CALLED FOR PT STATES SOMEONE STOLE BATTERY OUT OF CAR
== END 2019-11-27 09:01 | disposition home or self-care (01) ==
LOC: EDUNIT# 06:30 → ER 06:33
DX: J20.9 Acute bronchitis, unspecified (principal); R10.12 Left upper quadrant pain; J45.909 Unspecified asthma, uncomplicated; Z86.73 Personal history of transient ischemic attack (TIA), and cerebral infarction without residual deficits; Z79.84 Long term (current) use of oral hypoglycemic drugs
CPT/HCPCS: 36415; 71045; 80053; 83615; 83880; 84145; 85007; 85027; 85379; 86141; 87635; 87804

== ENCOUNTER 2020-02-05 06:19 | Emergency (ER) | payer MEDICAID ==
[~2020-02-05] VITALS: Ht 162.5 cm; Wt 100.5 kg
[~2020-02-05 06:19] MED LIST changes: +BENZ100C18 PO; +HYDR-83 PO; +METF-865 PO; -METF500T19 PO; +RT-ALBUINH IH
[2020-02-05] MEDS ORDERED: LORATADINE (CLARITIN) 10 MG TAB PO ONE (06:30)
--- NOTE | 2020-02-05 06:33 | ED EENT ---
History of Present Illness General Stated Complaint: CHEST TIGHTNESS Source: patient Exam Limitations: no limitations History of Present Illness Date Seen by Provider: Feb 05, 2020 Time Seen by Provider: 06:15 Initial Comments Patient presents to ER by EMS from home with chief complaint of waking up at 5:00 this morning with swollen uvula and tonsils and sore throat. His sister thought it might be allergic reaction and gave him 50 mg of Benadryl. Patient's having no difficulty breathing or talking. He is able to give an extensive history of his recent stay in the [facility] due to breakdown of anxiety related to family issues. He has no history of anaphylaxis. He has no hives rash fevers chills cough. No recent sick contacts. He's been tested 3 times in the last few weeks for COVID-19 all of which were negative. Patient takes a nasal spray but says he does not take his other medicines because he does not get them filled. He says it hurts to drink fluids and he has nasal congestion. Allergies and Home Medications Allergies Coded Allergies: No Known Drug Allergies (Unverified , 12/19/08) Home Medications Albuterol Sulfate 1 Puff Puff, 2 PUFF IH Q4H PRN for WHEEZING 1 PUFF = 90 MCG Prescribed by: JANES GOLD on 11/27/19 0831 Benzonatate 100 Mg Capsule, 200 MG PO TID PRN for COUGH Prescribed by: JANES GOLD on 11/27/19 0814 Hydrocodone/Acetaminophen 1 Each Tablet, 1 EACH PO Q4H PRN for COUGH For unrelenting cough or pain not controlled by [id number] medications Prescribed by: JANES GOLD on 11/27/19 0814 Metformin HCl 500 Mg Tab.er.24h, 500 MG PO BID, (Reported) Simvastatin 10 Mg Tablet, 10 MG PO HS, (Reported) Patient Home Medication List Home Medication List Reviewed: Yes Review of Systems Review of Systems Constitutional: No chills, No diaphoresis, No fever, No malaise Eyes: Denies Blindness, Denies Blurred Vision Ears: Denies Dizziness, Denies Pain Nose: denies epistaxis, denies pain, denies clear discharge, denies purulent discharge Mouth: denies clots, denies pain, denies swelling Throat: pain, swelling; denies neck stiffness; hoarse; denies muffled; painful swallowing, difficulty with fluids Respiratory: No cough, No hemoptysis, No orthopnea, No phlegm Cardiovascular: No chest pain, No edema Musculoskeletal: No back pain, No joint pain All Other Systems Reviewed Negative Unless Noted: Yes Past Uhvsubm-Yoovhy-Nkfwcf Hx Patient Social History Alcohol Use: Denies Use Recreational Drug Use: Yes Drug of Choice: cannibus Smoking Status: Never a Smoker Type Used: Electronic/Vapor Recent Hopitalizations: No Seasonal Allergies Seasonal Allergies: No Past Medical History Surgeries: Yes (appendectomy) Appendectomy, Orthopedic Respiratory: Yes ( CHILD) Asthma Currently Using CPAP: No Currently Using BIPAP: No Cardiac: No 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 oz. [id number]; 32.00 BMI Method:Estimated General Appearance: WD/WN, no apparent distress Eyes: bilateral eye normal inspection, bilateral eye PERRL, bilateral eye EOMI Ears: bilateral ear auricle normal, bilateral ear canal normal, bilateral ear TM normal Nose: normal inspection; No discharge, No sinus tenderness Mouth/Throat: No pharynx tenderness, No tongue swollen; uvula swelling (erythematous), other (retropharynx is erythematous swollen without exudate) Neck: full range of motion, supple, normal inspection Cardiovascular: normal peripheral pulses, regular rate, rhythm Respiratory: lungs clear, normal breath sounds, no respiratory distress, no accessory muscle use Neurologic/Psychiatric: alert, normal mood/affect, oriented x 3 Skin: normal color, warm/dry Progress/Results/Core Measures Results/Orders Lab Results Laboratory Tests Test 02/05/20 06:24 Range/Units Group A Streptococcus Screen NEGATIVE NEGATIVE My Orders Orders - [facility] Rapid Strep A Screen (02/05/20 06:27) Loratadine Tablet (Claritin Tablet) (02/05/20 06:30) Medications Given in ED Current Medications Medications Dose Ordered Sig/Enmanuel Route Start Time Stop Time Status Last Admin Dose Admin Loratadine 10 mg ONCE ONCE PO 02/05/20 06:30 02/05/20 06:31 DC 02/05/20 06:57 10 MG Vital Signs/I&O 02/05/20 06:20 Temp 36.2 Pulse 86 Resp 20 B/P (MAP) 135/88 (104) Pulse Ox 98 O2 Delivery Nasal Cannula Progress Progress Note #1: Time: 06:33 Progress Note Erythematous retropharynx congestion. Could be allergic versus viral nasopharyngitis. He has already received Benadryl so we will give him some loratadine and get a swab of his throat. If it's negative we'll observe him for a short while. If he is not having any airway occlusion we'll allow him to go home and encourage conservative management for what is more likely a viral pharyngitis. Progress Note #2: Time: 07:19 Progress Note On reexamination patient has had no deterioration in his status. It is felt this is nasopharyngitis. Throat culture has been obtained. Departure Impression Primary Impression: Nasopharyngitis acute Disposition: 01 HOME, SELF-CARE Condition: Stable Departure-Patient Inst. Decision time for Depature: 07:20 Referrals: [facility] (PCP/Family) Primary Care Physician Patient Instructions: Viral Pharyngitis (DC) Add. Discharge Instructions: If the culture grows something out in the next couple days then we will call you and put you on appropriate antibiotics. Also likely this is a virus and will last 5-7 days. Drink plenty of fluids and try not to become dehydrated. Popsicles, sherbet can be soothing. Tylenol 1000 mg every 8 hours as necessary for pain, body aches or fever. Ibuprofen 800 mg every 8 hours as necessary for pain, body aches or fever. Chloraseptic sprays can be helpful for throat pain. Salt water gargles frequently to help reduce swelling and pain. Do not allow anyone to eat or drink using the same utensils or cups. Wash your h ands and use surface disinfectants. PALAK [place]AGUE Feb 05, 2020 06:33
[2020-02-05 07:29] VITALS: BP 124/80
--- OUTSIDE RECORDS SUMMARY | 2020-02-05 08:12 | XMS REPORT ---
Author Author Blue Badge Style. nutrition consultant [facility] Central Desktop. [facility] Address [address] [address] Care Team Providers Care Adobe Maker Name Role Phone PRIETO, EMY Unavailable Unavailable [facility] Unavailable TOO CAM Unavailable MONICA ALVARENAG Unavailable Unavailable ADIA PANCHAL Unavailable Unavailable BUTCH [...] Unavailable RICHELLE, DAWNY Unavailable RICHELLE, DAWNY Unavailable EMY PRIETO Unavailable MARIA TERESA RAMAN Unavailable SUZETTE ARDON Unavailable YASMEEN GOMEZ Unavailable OZ PERKINS Unavailable VASU MARIAH Unavailable RICHELLE, DAWNY Unavailable Migration, Doctor Unavailable Unavailable Migration, Doctor [...] le Unavailable Unavailable Migration, Doctor Unavailable Unavailable JANES ORTEGA MD Unavailable Unavailable Migration, Doctor Unavailable Unavailable Unavailable Unavailable Unavailable Unavailable Unavailable Unavailable Allergies Normalized Allergy Reported Date of Reaction(s) Care Provider Facility Allergy Type classification allergen Allergy Onset DA (2 Unclassified No Known Drug 12-19-2008 - no information [facility] Via sources.) Allergies , [facility] (32973) Medications Medication Ingredient Drug Dose Dates Status Sig Sig Care Class(es) (Normalized) (Original) Provid er benzonatate benzonatate Non-narcoti 100 mg 05-08-20 Active no Tessalon no 100 mg oral Translation c 18 - information Perles 100 name capsule (1 s: [ Antitussive 10-10-20 MG Orally source.) Tessalon 18 Three times Perles 100 a day 1 MG] capsule as needed 8h May, May, 5 days Active sildenafil sildenafil Phosphodies 25 mg 07-20-20 Active take 1-2 Viagra 25 MG no 25 mg oral Translation terase 5 18 tablets by Orally Once name tablet (2 s: [ Viagra Inhibitor mouth once a day prn sources.) 25 MG] daily as 1-2 tablet needed as needed Jul, 10 days Active Problems Active Problems Problem Normalized Date Last Normalized Normalized Provider Israel sparrowty Classification Problem(s) Recorded Problem Problem Sta tus Duration Residual Acquired Episodic Active JAEL RICE [facility] Via codes; absence of Sonya unclassified other Hospital - (4 sources.) specified [place] parts of (16935) digestive tract Acute Acute 01-04-2020 - Episodic Active JANES [facility] V ia bronchitis (3 bronchitis, Sonya ORTEGA sources.) unspecified [facility] (65207) Anxiety Anxiety Chronic Active PETER RICE [facility] Via disorders (4 disorder, Sonya sources.) unspecified 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 (67886) Abdominal pain Left upper 01-04-2020 - Episodic Active JANES [facility] Via (3 sources.) quadrant pain Sonya ORTEGA MD 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) and cerebral infarction without residual deficits Other lower Shortness of Episodic Active KAVITHA [facility] Via respiratory breath CHOW-ANDERSO Sonya disease (2 N , [place] Hospital - sources.) [place] (92977) Past or Other Problems Problem Normalized Date Last Normalized Normalized Provider Fa cility Classification Problem(s) Recorded Problem Problem Sta tus Duration Other roster clerk no information no information JAEL RICE [facility] Via aftercare (1 (current) use Sonya source.) of oral Hospital - hypoglycemic [place] drugs (87225) Mood disorders Major no information no information JAEL THOMAS [facility] Via (1 source.) depressive [facility] disorder, Hospital - single [place] episode, (08683) unspecified Other Pain in left Episodic Completed JAEL RICE [facility] Via connective forearm [facility] tissue disease Hospital - (1 source.) [place] (08218) Suicide and Suicidal Episodic Completed JAEL RICE [facility] Via intentional ideations [facility] self-inflicted Hospital - injury (3 [place] sources.) (09893) Procedures Procedure Normalized Procedure Procedure Result Performer Facility Date 10-07-2018 Hemoglobin no information no name [facility] glycosylated a1c [facility] (89203) 07-20-2018 Hemoglobin no information no name [facility] glycosylated a1c [facility] (58389) 03-24-2018 Hemoglobin no information no name [facility] glycosylated a1c [facility] (62484) 04-02-2018 Intraoral periapical no information no name [facility] (92573) 10-07-2018 LAB NOT BILLED BY no information no name [facility] (56980) 05-08-2018 Radiologic exam chest no information [facility] (79861) 04-02-2018 Rem imp tooth w no information no name [facility] mucoper flp [facility] (51093) 08-31-2018 Therapeutic px 1/> no information no name [facility] areas each 15 min [facility] (93657) Immunizations The data below is from unstructured [...] on null NEGATED: no information (no code) [facility] Highlighted row Center of Laboratory [facility] studies (set) (80071) a1c (in house) on null Hemoglobin 4.8 % (no code) 0 - 5.7 % [facility] A1c/Hemoglobin.t [facility] fraction (Bld) (83175) Hemoglobin 4.7 % (no code) 0 - 5.7 % [facility] A1c/Hemoglobin.t [facility] (d) (26610) A1C (IN HOUSE) 0856 (no code) [facility] (68453) A1C (IN HOUSE) 10/2019 (no code) [facility] (46057) A1C (IN HOUSE) 0941 (no code) [facility] (70610) A1C (IN HOUSE) 05/2020 (no code) [facility] (50225) not yet categorized on 2019-11-27 FLU RESULT Negative (no code) 11-27-2019 PENDING LOCATI ON 03: [facility] () PROCALCITONIN 0.04 (NEG) 11-27-2019 PENDING LOCA TION (PCT) 03: [facility] () laboratory on 2019-11-27 Albumin 4.4 g/dL (NEG) 3.4 - 5.4 g/dL 11-27-2019 PENDING LOCATION [Mass/Vol] 03: [facility] () ALP [Catalytic 41 U/L (NEG) 44 - 147 U/L 11-27-2019 PEND ING LOCATION activity/Vol] 03: [facility] () ALT [Catalytic 39 U/L (NEG) 4 - 40 U/L 11-27-2019 PENDIN G LOCATION activity/Vol] 03: [facility] () Anion gap 13 mmol/L (NEG) 3 - 11 mmol/L 11-27-2019 PENDING LOCATION [Moles/Vol] 03: [facility] () AST [Catalytic 31 U/L (NEG) 10 - 34 U/L 11-27-2019 PENDI NG LOCATION activity/Vol] 03: [facility] () Basophils (Bld) 0.1 10*3/uL (NEG) 0 - 0.3 10*3/uL 11-27-2019 PENDING LOCATION [#/Vol] 03: [facility] () Basophils/100 1 % (NEG) 0.5 - 1 % 11-27-2019 PENDING LOCATION WBC (Bld) 03: [facility] () Bilirubin 0.6 mg/dL (NEG) 0.1 - 1.2 mg/dL 11-27-2019 PENDIN G LOCATION [Mass/Vol] 03: [facility] (69752) Calcium 9.2 mg/dL (NEG) 8.5 - 10.2 mg/dL 11-27-2019 PENDI NG LOCATION [Mass/Vol] 03:10-0400 [facility] (49639) Calcium 8.9 mg/dL (NEG) 8.5 - 10.2 mg/dL 11-27-2019 PENDI NG LOCATION [Mass/Vol] 03:10-0400 [facility] (28276) Chloride 108 mmol/L (H) 95 - 106 mmol/L 11-27-2019 PENDI NG LOCATION [Moles/Vol] 03:10-0400 [facility] (28907) CO2 [Moles/Vol] 20 mmol/L (L) 23 - 29 mmol/L 11-27-2019 P ENDING LOCATION 03:100400 [facility] (15174) Coronavirus Ab Negative (no code) 11-27-2019 PENDING LOC ATION Qn (S) 03:0 [facility] (24423) Creatinine 1.03 mg/dL (NEG) 11-27-2019 PENDING LOCATI ON [Mass/Vol] 03:10-0400 [facility] (40196) Creatinine and > (no code) 11-27-2019 PENDING LOC ATION Glomerular 03:100400 [facility] (76849) filtration rate.predicted panel - Serum, Plasma or Blood CRP [Mass/Vol] 0.16 (NEG) 11-27-2019 PENDING LOC ATION 03:10-0400 [facility] (68879) Eosinophils 0.1 10*3/uL (NEG) 0.05 - 0.5 11-27-2019 PENDING LOCATION (Bld) [#/Vol] 10*3/uL 03:10-0400 [facility] (33337) Eosinophils/100 1 % (NEG) 1 - 4 % 11-27-2019 PENDIN G LOCATION WBC (Bld) 03:100400 [facility] (73225) Eosinophils/100 1 % (no code) 11-27-2019 PENDING LO CATION WBC (Nose) 03:100400 [facility] (38384) Erythrocyte 13.9 % (NEG) 11.6 - 14.6 % 11-27-2019 PENDIN G LOCATION distribution 03:0 [facility] (73051) width (RBC) [Ratio] Fibrin D-dimer < (NEG) 11-27-2019 PENDING LOC ATION FEU (PPP) 03:10-0400 [facility] (73914) [Mass/Vol] Glucose 92 mg/dL (NEG) 60 - 125 mg/dL 11-27-2019 PENDING LOCATION [Mass/Vol] 03:10-0400 [facility] (98879) Hematocrit (Bld) 45 % (NEG) 36.1 - 50.3 % 11-27-2019 P ENDING LOCATION [Volume 03:-040 [facility] (72909) fraction] Hemoglobin (Bld) 16.1 g/dL (NEG) 12.1 - 17.2 g/dL 11-27-2019 PENDING LOCATION [Mass/Vol] 03:10-0400 [facility] (62826) LDH [Catalytic 207 U/L (NEG) 105 - 333 U/L 11-27-2019 PEN DING LOCATION activity/Vol] 03:10-0400 [facility] (06763) Lymphocytes 6.6 10*3/uL (H) 0.9 - 2.9 11-27-2019 PENDING LOCATION (Bld) [#/Vol] 10*3/uL 03:10-0400 [facility] (79403) Lymphocytes/100 38 % (NEG) 20 - 40 % 11-27-2019 PENDIN G LOCATION WBC (Bld) 03:10-0400 [facility] (40973) Lymphocytes/100 36 % (no code) 20 - 40 % 11-27-2019 PENDIN G LOCATION WBC (Bld) 03:10-0400 [facility] (09631) MCH (RBC) 30 pg (NEG) 27 - 31 pg 11-27-2019 PENDING LOC ATION [Entitic mass] 03:10-0400 [facility] (12997) MCHC (RBC) 36 g/dL (NEG) 32 - 36 g/dL 11-27-2019 PENDING LOCATION [Mass/Vol] 03:10-0400 [facility] (79799) MCV (RBC) 82 (NEG) 11-27-2019 PENDING LOCATI ON [Entitic vol] 03:10-0400 [facility] (52584) Monocytes (Bld) 1.3 10*3/uL (H) 0.3 - 0.9 11-27-2019 PEND ING LOCATION [#/Vol] 10*3/uL 03:10-0400 [facility] (57577) Monocytes/100 8 % (NEG) 2 - 8 % 11-27-2019 PENDING LOCATION WBC (Bld) 03:0400 [facility] (78689) Monocytes/100 6 % (no code) 2 - 8 % 11-27-2019 PENDING LOCATION WBC (Bld) 03:0400 [facility] (44951) Natriuretic 40.0 pg/mL (no code) 0 - 100 pg/mL 11-27-2019 PENDI NG LOCATION peptide B (Bld) 03:0 [facility] (18820) [Mass/Vol] Neutrophils 9.2 10*3/uL (H) 1.7 - 7 10*3/uL 11-27-2019 PE NDING LOCATION (Bld) [#/Vol] 03:0400 [facility] (67028) Neutrophils/100 53 % (NEG) 40 - 60 % 11-27-2019 PENDIN G LOCATION WBC (Bld) 03:0 [facility] (10283) Platelet mean 10.0 (NEG) 11-27-2019 PENDING LOCA TION volume (Bld) 03:0 [facility] (05027) [Entitic vol] Platelets (Bld) 266 10*3/uL (NEG) 150 - 450 11-27-2019 PEND ING LOCATION [#/Vol] 10*3/uL 03:-0400 [facility] (59858) Potassium 3.5 mmol/L (L) 3.7 - 5.2 mmol/L 11-27-2019 PEND ING LOCATION [Moles/Vol] 03:0 [facility] (72734) Protein 7.3 g/dL (NEG) 6.4 - 8.3 g/dL 11-27-2019 PENDING LOCATION [Mass/Vol] 03:0400 [facility] (43600) RBC (Bld) 5.42 10*6/uL (NEG) 4.2 - 6.1 11-27-2019 PENDING L OCATION [#/Vol] 10*6/uL 03:0400 [facility] (38326) RBC morphology NORMAL (no code) 11-27-2019 PENDING LOC ATION finding Nom 03:0400 [facility] (58211) (Bld) Segmented 57 % (no code) 35 - 80 % 11-27-2019 PENDING LOCA TION neutrophils/100 03: [facility] (92103) WBC (Bld) Sodium 141 mmol/L (NEG) 135 - 145 mmol/L 11-27-2019 PEND ING LOCATION [Moles/Vol] 03:10-399 [facility] (27082) Urea nitrogen 20 mg/dL (H) 7 - 20 mg/dL 11-27-2019 PENDI NG LOCATION [Mass/Vol] 03: [facility] (09786) Urea 19 mg/mg (no code) 6 - 22 mg/mg 11-27-2019 PENDING L OCATION nitrogen/Creatin 03: [facility] (19941) ine [Mass ratio] WBC (Bld) 17.2 10*3/uL (H) 3.5 - 10.5 11-27-2019 PENDING LOCATION [#/Vol] 10*3/uL 03: [facility] (41051) not yet categorized on 2019-10-12 Control Negative (no code) [facility] (34646) Exp date 07/05/2021 (no code) [facility] (09832) Lot # [id number] (no code) [facility] (60701) not yet categorized on 2019-07-31 Control Negative (no code) [facility] (21187) Exp date 06/18/2021 (no code) [facility] (28446) Lot # [id number] (no code) [facility] (20272) laboratory on 2019-01-15 Calcium 9.5 mg/dL (N) 8.5 - 10.2 mg/dL [facility] [Mass/Vol] [facility] (71727) Chloride 108 mmol/L (N) 95 - 106 mmol/L [facility] [Moles/Vol] [facility] (99083) CO2 [Moles/Vol] 28 mmol/L (N) 23 - 29 mmol/L [facility] (72752) Creatinine 1.11 mg/dL (N) [facility] h [Mass/Vol] [facility] (62175) GFR/1.73 sq M 100 (N) 90 - 120 Community al[facility] predicted among mL/min/{1.73_m2} mL/min/{1.73_m2} Center o f [facility] blacks MDRD [facility] (S/P/Bld) [Vol (03999) rate/Area] GFR/1.73 sq 86 (N) 90 - 120 [facility] M.predicted MDRD mL/min/{1.73_m2} mL/min/{1.73_m2} [facility] (S/P/Bld) [Vol [facility] rate/Area] (80889) Glucose 90 mg/dL (N) 60 - 125 mg/dL [facility] [Mass/Vol] [facility] (71598) Potassium 4.0 mmol/L (N) 3.7 - 5.2 mmol/L [facility] [Moles/Vol] [facility] (00838) Sodium 142 mmol/L (N) 135 - 145 mmol/L [facility] [Moles/Vol] [facility] (69236) Urea nitrogen 16 mg/dL (N) 7 - 20 mg/dL [facility] [Mass/Vol] [facility] (53631) Urea NOT APPLICABLE (no code) [facility] nitrogen/Creatin [facility] ine [Mass ratio] [facility] (77929) laboratory on 2018-10-07 Albumin 4.5 g/dL (N) 3.4 - 5.4 g/dL [facility] [Mass/Vol] [facility] (28686) Albumin/Globulin 2.0 {ratio} (N) 1 - 2.5 {ratio} Comm [facility] [Mass ratio] [facility] (84894) ALP [Catalytic 49 U/L (N) 44 - 147 U/L [facility] activity/Vol] [facility] (89927) ALT [Catalytic 34 U/L (N) 4 - 40 U/L [facility] activity/Vol] [facility] (50639) AST [Catalytic 20 U/L (N) 10 - 34 U/L [facility] activity/Vol] [facility] (10132) Basophils (Bld) 0.069 10*3/uL (N) 0 - 0.3 10*3/uL [facility] Health [#/Vol] [facility] (08659) Basophils/100 0.8 % (N) 0.5 - 1 % [facility] WBC (Bld) [facility] (54759) Bilirubin 0.6 mg/dL (N) 0.1 - 1.2 mg/dL [facility] [Mass/Vol] [facility] (15263) Calcium 9.4 mg/dL (N) 8.5 - 10.2 mg/dL [facility] [Mass/Vol] [facility] (19090) Chloride 108 mmol/L (N) 95 - 106 mmol/L [facility] [Moles/Vol] [facility] (10771) Cholesterol 123 mg/dL (N) 180 - 200 mg/dL [facility] [Mass/Vol] [facility] (48769) Cholesterol in 26 mg/dL (L) [facility] HDL [Mass/Vol] [facility] (34284) Cholesterol in 70 mg/dL (N) 0 - 100 mg/dL [facility] LDL [Mass/Vol] [facility] (82627) Cholesterol non 97 mg/dL (N) [facility] HDL [Mass/Vol] [facility] (10857) Cholesterol.tota 4.7 {ratio} (N) [facility] l/Cholesterol in [facility] HDL [Mass ratio] [facility] (62175) CO2 [Moles/Vol] 27 mmol/L (N) 23 - 29 mmol/L [facility] (27727) Creatinine 1.09 mg/dL (N) [facility] [Mass/Vol] [facility] (46855) Eosinophils 0.077 10*3/uL (N) 0.05 - 0.5 [facility]th (Bld) [#/Vol] 10*3/uL [facility] (92204) Eosinophils/100 0.9 % (N) 1 - 4 % [facility] WBC (Bld) [facility] (44771) Erythrocyte 13.1 % (N) 11.6 - 14.6 % [facility] ealth distribution [facility] width (RBC) [facility] [Ratio] (93594) GFR/1.73 sq M 102 (N) 90 - 120 [facility] alth predicted among mL/min/{1.73_m2} mL/min/{1.73_m2} [facility] blacks MDRD [facility] (S/P/Bld) [Vol (63451) rate/Area] GFR/1.73 sq 88 (N) 90 - 120 [facility] M.predicted MDRD mL/min/{1.73_m2} mL/min/{1.73_m2} [facility] (S/P/Bld) [Vol [facility] rate/Area] (40294) Globulin (S) 2.2 g/dL (N) 2 - 3.5 g/dL [facility] [Mass/Vol] [facility] (88616) Glucose 94 mg/dL (N) 60 - 125 mg/dL [facility] [Mass/Vol] [facility] (14630) HbA1c (Bld) 4.5 (N) [facility] [Mass fraction] [facility] (13901) Hematocrit (Bld) 44.7 % (N) 36.1 - 50.3 % [facility] [Volume [facility] fraction] [facility] (11188) Hemoglobin (Bld) 15.6 g/dL (N) 12.1 - 17.2 g/dL [facility] [Mass/Vol] [facility] (26914) Lymphocytes 3.234 10*3/uL (N) 0.9 - 2.9 [facility] alth (Bld) [#/Vol] 10*3/uL [facility] (11890) Lymphocytes/100 37.6 % (N) 20 - 40 % [facility] WBC (Bld) [facility] (94250) MCH (RBC) 30.6 pg (N) 27 - 31 pg [facility] [Entitic mass] [facility] (37988) MCHC (RBC) 34.9 g/dL (N) 32 - 36 g/dL [facility] [Mass/Vol] [facility] (14184) MCV (RBC) 87.8 fL (N) 80 - 100 fL [facility] [Entitic vol] [facility] (14854) Monocytes (Bld) 0.49 10*3/uL (N) 0.3 - 0.9 [facility] [#/Vol] 10*3/uL [facility] (93394) Monocytes/100 5.7 % (N) 2 - 8 % [facility] WBC (Bld) [facility] (12701) Neutrophils 4.73 10*3/uL (N) 1.7 - 7 10*3/uL [facility] Health (Bld) [#/Vol] [facility] (75123) Neutrophils/100 55 % (N) 40 - 60 % [facility] WBC (Bld) [facility] (39359) Platelet mean 10.0 fL (N) 7.2 - 11.7 fL [facility] volume (Bld) [facility] [Entitic vol] [facility] (59348) Platelets (Bld) 238 10*3/uL (N) 150 - 450 [facility] [#/Vol] 10*3/uL [facility] (85887) Potassium 3.8 mmol/L (N) 3.7 - 5.2 mmol/L [facility] [Moles/Vol] [facility] (50135) Protein 6.7 g/dL (N) 6.4 - 8.3 g/dL [facility] [Mass/Vol] [facility] (03600) RBC (Bld) 5.09 10*6/uL (N) 4.2 - 6.1 [facility] [#/Vol] 10*6/uL [facility] (89830) Sodium 142 mmol/L (N) 135 - 145 mmol/L [facility] [Moles/Vol] [facility] (34853) Triglyceride 197 mg/dL (H) 0 - 150 mg/dL [facility] [Mass/Vol] [facility] (49217) TSH Qn 1.60 m[IU]/L (N) 0.4 - 4 m[IU]/L [facility] (51508) Urea nitrogen 14 mg/dL (N) 7 - 20 mg/dL [facility] [Mass/Vol] [facility] (59862) Urea NOT APPLICABLE (no code) [facility] nitrogen/Creatin [facility] [Mass ratio] [facility] (28065) WBC (Bld) 8.6 10*3/uL (N) 3.5 - 10.5 [facility] [#/Vol] 10*3/uL [facility] (27432) other on 2018-07-20 Exp date 05/2020 (no code) [facility] (78730) Lot [id number] (no code) [facility] (49545) other on 2018-03-24 Exp date 10/2019 (no code) [facility] (78244) Lot 4.8~[id number] (no code) [facility] (70847) urinalysis on 2017-10-07 Bacteria SEE NOTE (no code) [facility] identified Cx [facility] (U) [facility] (59869) Protein mass Negative (no code) 0 - 20 mg/dL [facility] conc (U) [facility] (70001) other on 2017-10-07 Exp date [id number] (no code) [facility] (44116) KET Negative (no code) [facility] (87733) SG 1.020 (no code) [facility] (46889) URO 2.0 (no code) [facility] (15476) hematology on 2017-10-07 pH (Bld) 6.5 [pH] (no code) 7.38 - 7.42 [pH] [facility] (53293) other on 2017-08-25 Exp date 05/2019 (no code) [facility] (84634) Lot 4.6~4.6~[id number] (no code) [facility] (76571) Vital Signs Vital Sign Value Interpretation Reference Date Time Care Prov ider Facility (Normalized) (Normalized) Range BMI (Body Mass 32.08 kg/m2 (no code) 15 - 25 kg/m2 10-07-2018 D [facility] Community Index) 13:00-[address] [place] [address] (97346) BMI (Body Mass 32.09 kg/m2 (no code) 15 - 25 kg/m2 07-20-2018 EL ZAMZAM Community Index) 16:00-[address] [place] [address] (02190) BMI (Body Mass 32.3 kg/m2 (no code) 15 - 25 kg/m2 05-08-2018 YANIRA CARTWRIGHTRaquel KAYLI Community Index) 13:30-[address] [place] [address] (85271) BMI (Body Mass 31.62 kg/m2 (no code) 15 - 25 kg/m2 03-24-2018 M SELENE PRIETO Community Index) 15:20-[address] [place] [address] (90225) BMI (Body Mass 31.76 kg/m2 (no code) 15 - 25 kg/m2 03-18-2018 D [facility] Community Index) 14:40-[id number] [place] [address] (77512) BMI (Body Mass 32.01 kg/m2 (no code) 15 - 25 kg/m2 02-18-2018 D [facility] Community Index) 15:40-[id number] [place] [address] (36256) BMI (Body Mass 31.42 kg/m2 (no code) 15 - 25 kg/m2 01-21-2018 D [facility] Community Index) 11:20-[address] [place] [address] (64192) Body height 154.31 cm (no code) cm 12-20-2013 [facility] 15:54-0400 Migration [facility] (78914) Body 97.8 [degF] (no code) 97.8 - 99.0 07-20-2018 [facility] Temperature [degF] 16:00-0500 GREGORIO 15902 [facility] (16247) Body 97.4 [degF] (no code) 97.8 - 99.0 05-08-2018 ENRIQUE Community Temperature [degF] 13:30-0400 BRONX 31929 [facility] nter [facility] (16662) Body 98 [degF] (no code) 97.8 - 99.0 03-24-2018 [facility] Community Temperature [degF] 15:20-0400 25939 [facility] (38986) Body 97.9 [degF] (no code) 97.8 - 99.0 12-20-2013 Doctor [facility] temperature [degF] 15:54-0400 [facility] (40912) Body weight 109.09 kg (no code) kg 10-07-2018 [facility] 13:00-0500 51778 [facility] (81645) Body weight 101.15 kg (no code) kg 01-31-2014 [facility] 13:31-0400 [facility] (36490) Body weight 100.88 kg (no code) kg 12-20-2013 [facility] 15:54-0400 [facility] (05517) Height 184.4 cm (no code) cm 10-07-2018 [facility] 13:00-0500 68748 [facility] (63937) Height 184.4 cm (no code) cm 07-20-2018 OZ Commu nity 16:00-0500 GREGORIO 94782 [facility] (73785) Height 184.4 cm (no code) cm 05-08-2018 ENRIQUE Commu nity 13:30-[address] [place] [address] (96485) Height 184.4 cm (no code) cm 04-02-2018 MARIA TERESA carterity 10:00-0400 [facility] [facility] ([id number]) Height 184.4 cm (no code) cm 03-24-2018 [facility] 15:200 08337 [facility] (60737) Height 184.4 cm (no code) cm 03-18-2018 [facility] 14:400400 98592 [facility] ([id number]) Height 184.4 cm (no code) cm 02-18-2018 [facility] 15:40040 17381 [facility] ([id number]) Height 184.4 cm (no code) cm 01-21-2018 [facility] 11:[id number] [place] [address] ([id number]) Height 154.31 cm (no code) cm 01-31-2014 Doctor Carole monique 13:31-0400 [facility] ([id number]) Pulse Oximetry 0 % (no code) 95 - 100 % 05-08-2018 SUZETTE Rizzo [facility]ly [facility], [facility] 13:30-[address] ([id number]) Weight 109.14 kg (no code) kg 07-20-2018 [facility] [place] 16:00-[address] ([address]) Weight 109.86 kg (no code) kg 05-08-2018 SUZETTE MILAN Formerly [facility] 13:30-[address] ([address]) Weight 107.55 kg (no code) kg 03-24-2018 EMY PRIETO [facility] 15:200 65639 [facility] ([id number]) Weight 108 kg (no code) kg 03-18-2018 [facility] 14:400400 [id number] [place] [address] ([id number]) Weight 108.86 kg (no code) kg 02-18-2018 [facility] 15:400400 [id number] [place] [address] ([id number]) Weight 106.87 kg (no code) kg 01-21-2018 [facility] 11:[id number] [place] [address] ([id number]) Interventions No Information Plan of Treatment Normalized Care Care Detail Care Activity Date Care Provider F acility Activity (IPT) Internal PCP [facility] 07-20-2018 YASMEEN PATRICIA [phone] [facility] ([id number]) (PSY-FU-20) [facility] 07-22-2018 YASMEEN PLUMMER [address] [facility] Psychiatry F/U 20 [facility] ([id number]) (PT-EVAL) Physical [facility] 06-01-2018 SUZETTE GROSSMAN [facility] Therapy Evaluation [facility] [address] [facility] ([id number]) (PT-EVAL) Physical [facility] 07-13-2018 YASMEEN PATRICIA [phone] [facility] Therapy Evaluation [facility] ([id number]) (PT-F/U) Physical [facility] 08-12-2018 OZ PERKINS [facility] Therapy f/u [address] ([id number]) Goals No Information Social History The data [...] Physical no information MARIAH LEONE (n o [facility] Therapy Evaluation phone) (no phone) 11-27-2019 Emergency department no information JANES LYMAN [facility] [address] - patient visit (no phone) [facility] 11-27-2019 (no phone) 07-31-2019 Emergency department no information no name no organization name - patient visit 07-31-2019 02-13-2019 Emergency department no information no name no organization name - patient visit 02-13-2019 02-13-2019 Emergency department no information no name no organization name - patient visit 02-13-2019 04-25-2016 Emergency department no information no name no organization name - patient visit 04-25-2016 03-09-2016 Emergency department no information no name no organization name - patient visit 03-09-2016 08-21-2015 Emergency department no information no name no organization name - patient visit 08-21-2015 04-02-2018 Limit oral eval problm no information no name no organization name focus 03-24-2018 Patient encounter no information no name no or ganization name 02-18-2018 Patient encounter no information no name no or ganization name 12-17-2017 Patient encounter no information no name no or ganization name 12-16-2017 Patient encounter no information no name no or ganization name 12-10-2017 Patient encounter no information no name no or ganization name 11-05-2017 Patient encounter no information no name no or ganization name 11-03-2017 Patient encounter no information no name no or ganization name 10-07-2017 Patient encounter no information no name no or ganization name 09-05-2017 Patient encounter no information no name no or ganization name 08-25-2017 Patient encounter no information no name no or ganization name 01-12-2020 Patient encounter no information OZ PERKINS (no [facility] procedure phone) [facility] (no phone) 11-27-2019 Patient encounter no information JANES ALBARRAN [facility] [address] procedure (no phone) [facility] (no phone) 10-12-2019 Patient encounter no information OZ PERKINS (no [facility] procedure phone) (no phone) [facility] (no phone) 09-27-2019 Patient encounter no information KAVITHA JUSTICE (no [facility] phone) (no phone) 08-23-2019 Patient encounter no information no name no or ganization name procedure 07-31-2019 Patient encounter no information no name no or ganization name procedure 06-02-2019 Patient encounter no information no name no or ganization name procedure 04-02-2019 Patient encounter no information no name no or ganization name procedure 03-02-2019 Patient encounter no information no name no or ganization name procedure 02-13-2019 Patient encounter no information no name no or ganization name procedure 02-12-2019 Patient encounter no information no name no or ganization name procedure 01-27-2019 Patient encounter no information no name no or ganization name procedure 01-25-2019 Patient encounter no information no name no or ganization name procedure 01-15-2019 Patient encounter no information no name no or ganization name procedure 01-13-2019 Patient encounter no information no name no or ganization name procedure 01-07-2019 Patient encounter no information no name no or ganization name procedure 12-09-2018 Patient encounter no information no name no or ganization name procedure 10-07-2018 Patient encounter no information no name no or ganization name procedure 08-31-2018 Patient encounter no information no name no or ganization name procedure 08-12-2018 Patient encounter no information no name no or ganization name procedure 07-20-2018 Patient encounter no information no name no or ganization name procedure 07-13-2018 Patient encounter no information no name no or ganization name procedure Medical Equipment No Information Payers The data below is from unstructured sources Payer Name Policy Number Subscriber Name Relationship [facility] [id number] Drew Hayes Ii 01 Self / Same As Patient Payer Name Policy Number Subscriber Name Relationship [facility] [id number] Drew Hayes Ii 01 Self / Same As Patient Summary Purpose eClinicalWorks SubmissioneClinicalWorks SubmissioneClinicalWorks SubmissioneClinicalWorks Submission Advance Directives Directive Response Recor ded Date/Time Advance Directives No 9:27pm Organ Donor No 03/09/16 9:27pm Directive Response Recor ded Date/Time Advance Directives No 8:25pm Health Care Power of Sld Educational Aide No 04/25/16 8:25pm Organ Donor No 04/25/16 [...] This clinical document has been generated using [employer] software that has been certified by the Office of the National Coordinator for Health Information Technology (ONC 15.99.04.3023.[id number].[id number]) and the National Committee for Highway Engineering Technician (NCQA, as an eMeasure certified technology). FOR [...] BASED ON T HE PRIMARY CLINICAL RECORDS. [employer] provides no warranty or guara ntee of [...] BELOW FOR UNRECOGNIZED SECTION REASON FOR VISIT f/u-[place] MAPill box f/uB f/u Pt needing refill on Loxapine KAVITHA Melendez -- mzaldanaSelene--PAINCough/headache-twooden,RMA, pt complaining of coughing up green phlegm that started 4 days ago and he also cant stay hydrated .he think's he may have had a fever earlier today refill requestIPT( Establish care ) Dnia CARY follow-up f/u LfoyfgapDCRKR-PwmKHA-FzyPPX-[facility]
--- OUTSIDE RECORDS SUMMARY | 2020-02-05 08:13 | XMS REPORT ---
Author Author Drew Groves Doctor Organization [facility] Address Unknown Phone Unavailable Care Team Providers Care Brass Pickler Name Role Phone Migration, Doctor Unavailable Unavailable PROBLEMS Type Condition ICD9-CM Code GZI29-MM Code Onset Dates Condition S tatus SNOMED Code Problem Obesity E66.9 Active 449610355 Problem Seasonal allergic rhinitis due to pollen J30.1 Active 17589926 Problem Borderline personality disorder F60.3 Active 90821514 Problem Hypertriglyceridemia E78.1 Active 568545319 Problem Migraine without aura and without status migrain osus, not intractable G43.009 Active 872058723 Problem Marijuana use, episodic F12.90 Active 689092969 Problem Mild intermittent asthma with acute exacerbation J 45.21 Active 668556154 Problem Major depressive disorder, recurrent, moderate F33 .1 Active 14215315 Problem Mild intermittent asthma with acute exacerbation J 45.21 Active 993238682 Problem Bipolar II disorder F31.81 Active 87388065 Problem Erectile dysfunction, unspecified erectile dysfunction typ e N52.9 Active 686856151 Problem Tobacco abuse Z72.0 Active 279662 000 Problem Mood disorder F39 Active 442789 05 Problem Psychosexual dysfunction F52.9 Activ e [id number] ALLERGIES No Information ENCOUNTERS Encounter Location Date Diagnosis [facility] [address] [facility] [id number] [address] [place] [address] 10 Jan, 2020 [facility] [address] [facility] [id number] [address] [place] [id number] 10 Jan, 2020 [facility] [address] [facility] [id number] [address] [place] [address] Nov, Bronchitis J40 [facility] [address] [facility] [id number] [address] [place] [address] Nov, [facility] [address] [facility] [id number] [address] [place] [address] Oct, Body aches R52 and Viral ill ness B34.9 [facility] [address] [facility] [id number] [address] [place] [address] Jul, Body aches R52 and Viral gas troenteritis A08.4 [facility] [address] [facility] [id number] [address] [place] [address] May, Borderline personality disor laura F60.3 [facility] [address] [place] [id number] [address] [place] [address] Mar, Borderline personality disor laura F60.3 [facility] [address] [place] [id number] [address] [place] [address] Feb, Psychosexual dysfunction F52 .9 ; Mood disorder F39 and Borderline personality disorder F60.3 [place] [address] [place] [id number] [place] [address] Feb, [facility] [address] [place] [id number] [address] [place] [address] Feb, Mild intermittent asthma wit h acute exacerbation J45.21 [place] [address] [place] [id number] [address] [place] [address] Feb, Borderline personality disor laura F60.3 [place] [address] [place] [id number] [address] [place] [address] Jan, Borderline personality disor laura F60.3 [place] [address] [place] [id number] [address] [place] [address] Jan, Psychosexual dysfunction F52 .9 ; Mood disorder F39 and Borderline personality disorder F60.3 [place] [address] [place] [id number] [address] [place] [address] Jan, Erectile dysfunction, unspec ified erectile dysfunction type N52.9 ; Pre-syncope R55 ; Migraine without aura and without status migrainosus, not intractable G43.009 ; Low back pain M54.5 and Other chronic pain G89.29 [place] [address] [place] [id number] [address] [place] [address] Jan, Borderline personality disor laura F60.3 [facility] [address] [facility] [id number] [address] [place] [address] Jan, Psychosexual dysfunction F52 .9 ; Mood disorder F39 and Borderline personality disorder F60.3 [facility] [address] [place] [id number] [address] [place] [address] December, Borderline personality disor laura F60.3 [facility] [address] [facility] [id number] [address] [place] [address] December, Borderline personality disor laura F60.3 [place] [address] [place] [id number] [address] [place] [address] Oct, Borderline personality disor laura F60.3 [place] [address] [place] [id number] [address] [place] [address] Sep, [facility] [address] [place] [id number] [address] [place] [address] Aug, Mood disorder F39 and Border line personality disorder F60.3 [place] [address] [place] [id number] [address] [place] [address] Aug, Acute midline low back pain without sciatica M54.5 [place] [address] [place] [id number] [address] [place] [address] Aug, Acute midline low back pain without sciatica M54.5 [facility] [address] [place] [id number] [address] [place] [address] Jul, Migraine without aura and wi thout status migrainosus, not intractable G43.009 [facility] [address] [facility] [id number] [address] [place] [address] Jul, Borderline personality disor laura F60.3 [facility] [address] [place] [id number] [address] [place] [address] Jul, Insulin resistance E88.81 an d Erectile dysfunction, unspecified erectile dysfunction type N52.9 [facility] [address] [place] [id number] [address] [place] [address] Jul, Acute midline low back pain without sciatica M54.5 [facility] [address] [address] Jul, Migraine without aura and wi thout status migrainosus, not intractable G43.009 [facility] [address] [address] May, Acute midline low back pain without sciatica M54.5 [facility] [address] [address] May, Cough R05 and Acute nasophar yngitis J00 [facility] [id number] [place] [id number] Mar, Dental examination Z01.20 an d Caries K02.9 [facility] [address] [address] Mar, Insulin resistance E88.81 ; Acute midline low back pain without sciatica M54.5 and Chronic fatigue R53.82 [facility] [address] [address] Mar, Borderline personality disor laura F60.3 [place] [address] [address] Feb, [facility] [address] [address] Feb, Borderline personality disor laura F60.3 and Hypertriglyceridemia E78.1 [place] [address] [address] Jan, Borderline personality disor laura F60.3 and Hypertriglyceridemia E78.1 [place] [address] [address] December, Erectile dysfunction, unspec ified erectile dysfunction type N52.9 [facility] [address] [address] December, Migraine without aura and wi thout status migrainosus, not intractable G43.009 ; Seasonal allergic rhinitis due to pollen J30.1 ; Erectile dysfunction, unspecified erectile dysfunction type N52.9 ; Tobacco abuse Z72.0 ; Tobacco abuse counseling Z71.6 and Marijuana use, episodic F12.90 [place] [address] [address] December, Borderline personality disor laura F60.3 [place] [address] [address] Nov, Borderline personality disor laura F60.3 [place] [address] [address] Nov, Migraine without aura and wi thout status migrainosus, not intractable G43.009 ; Hypertriglyceridemia E78.1 ; Seasonal allergic rhinitis due to pollen J30.1 ; Major depressive disorder, recurrent, moderate F33.1 ; Other obesity due to excess calories E66.09 and Body mass index (BMI) of 32.0- 32.9 in adult Z68.32 [facility] [address] [address] Oct, Low back pain M54.5 [place] [address] [address] Sep, Borderline personality disor laura F60.3 [place] [address] [address] Aug, Insulin resistance E88.81 ; Hypertriglyceridemia E78.1 ; Obesity E66.9 ; Major depressive disorder, recurrent, moderate F33.1 and Borderline personality disorder F60.3 [place] [address] [address] Aug, Borderline personality disor laura F60.3 [place] [address] [facility] [id number] [address] [place] [address] Jun, Borderline personality disor laura F60.3 [facility] [address] [facility] [id number] [address] [place] [address] May, Borderline personality disor laura F60.3 [facility] [address] [facility] [id number] [address] [place] [address] 15 Apr, 2017 Insulin resistance E88.81 an d Hyperlipemia E78.5 [facility] [address] [facility] [id number] [address] [place] [address] Mar, Strain of muscle, fascia and tendon of lower back, sequela S39.012S [facility] [address] [facility] [id number] [address] [place] [address] Mar, Borderline personality disor laura F60.3 [facility] [address] [facility] [id number] [address] [place] [address] Jan, Borderline personality disor laura F60.3 [facility] [address] [facility] [id number] [address] [place] [address] December, [facility] [address] [facility] [id number] [address] [place] [address] December, Insulin resistance E88.81 ; Hyperlipemia E78.5 ; Obesity E66.9 ; Thoracic spine pain M54.6 and Low back pain M54.5 [facility] [address] [facility] [id number] [address] [place] [address] December, Borderline personality disor laura F60.3 [facility] [address] [facility] [id number] [address] [place] [address] Nov, Bipolar II disorder F31.81 a nd Personality disorder F60.9 [facility] [address] [facility] [id number] [address] [place] [address] Nov, Borderline personality disor laura F60.3 [facility] [address] [place] [id number] [address] [place] [address] 08 Oct, 2016 Bipolar II disorder F31.81 a nd Personality disorder F60.9 [place] [id number] [address] Oct, Borderline personality disor laura F60.3 [facility] [address] [address] Sep, Pain of left lower leg M79.6 62 [facility] [address] [address] Sep, Sore throat J02.9 ; Body ach es R52 and Acute non- recurrent maxillary sinusitis J01.00 [place] [address] [address] Sep, Borderline personality disor laura F60.3 [place] [address] [address] Aug, Insulin resistance E88.81 ; Obesity E66.9 ; Personality disorder F60.9 ; Hyperlipemia E78.5 and Seasonal allergic rhinitis due to pollen J30.1 [place] [address] [address] Aug, Borderline personality disor laura F60.3 [place] [address] [address] Jul, Borderline personality disor laura F60.3 and Recurrent major depressive disorder, in partial remission F33.41 [place] [address] [place] [id number] [address] [place] [address] Jul, 2016 Bipolar disorder F31.9 ; Sev ere episode of recurrent major depressive disorder, with psychotic features F33.3 and Personality disorder F60.9 [place] [address] [place] [id number] [address] [place] [address] 14 Jul, 2016 Borderline personality disor laura F60.3 [place] [address] [place] [address] [address] 05 Jul, 2016 Bipolar disorder F31.9 ; Par anoid schizophrenia F20.0 ; Dissociative and conversion disorder, 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 and Severe episode of recurrent major depressive disorder, with psychotic features F33.3 [facility] [address] [place] [id number] [address] [place] [address] 30 Jun, 2016 Acute upper respiratory infe ction, unspecified J06.9 and Other viral agents as the cause of diseases classified elsewhere B97.89 [facility] [address] [address] 07 May, 2016 Insulin resistance E88.81 ; Hyperlipemia E78.5 and Joint pain M25.50 [place] [address] [address] Feb, Insulin resistance E88.81 ; Hyperlipemia E78.5 ; Sore throat J02.9 and Abscess L02.91 [facility] [address] [address] Nov, Obesity E66.9 ; Personality disorder F60.9 ; Metabolic syndrome E88.81 and Hyperlipemia E78.5 [place] [address] [address] 29 Oct, 2015 Routine health maintenance Z 00.00 ; Bipolar disorder F31.9 ; Personality disorder F60.9 ; Family history of diabetes mellitus Z83.3 ; Family history of essential hypertension Z82.49 ; Joint pain M25.50 and Obesity E66.9 [facility] [address] [address] Jul, Major depressive disorder, r ecurrent, moderate F33.1 ; Borderline personality disorder F60.3 and Psychosis F29 [place] [address] [address] Jun, Borderline personality disor laura F60.3 ; Major depressive disorder, recurrent, moderate F33.1 and Psychosis F29 [facility] [address] [id number] [address] [place] [address] Jun, Persistent mood [affective] disorder, unspecified F34.9 [facility] [address] [id number] [address] [place] [address], [place] [address] 14 Nov, 2014 [facility] [address] [id number] [address] [place] [address], [place] [address] Nov, [facility] [address] [id number] [address] [place] [address] Sep, [facility] [address] [id number] [address] [place] [address], [place] [address] Sep, [facility] [address] [id number] [address] [place] [address] Jul, [facility] [address] [id number] [address] [place] [address] Jul, [facility] [address] [id number] [address] [place] [address] Jul, [facility] [address] [id number] [address] [place] [address] Jul, [facility] [address] [id number] [address] [place] [address] Jul, [facility] [address] [id number] [address] [place] [address] Jul, [facility] [address] [id number] [address] [place] [address] Jun, [facility] [address] [id number] [address] [place] [address] Jan, [facility] [address] [id number] [address] [place] [address] Jan, [facility] [address] [id number] [address] [place] [address] December, [facility] [place] [facility] [address] [id number] [address] [place] [address], [place] [address] December, [facility] [address] [id number] [address] [place] [address], [place] [address] Nov, [facility] [address] [id number] [address] [place] [address], [place] [address] Nov, [facility] [address] [id number] [address] [place] [address], [place] [address] Aug, [facility] [address] [id number] [address] [place] [address], [place] [address] Aug, [facility] [address] [id number] [address] [place] [address], [place] [address] Jul, [facility] [address] [id number] [address] [place] [address], [place] [address] Jul, [facility] [address] [id number] [address] [place] [address], [place] [address] Jun, [facility] [address] [id number] [address] [place] [address], [place] [address] Jun, [facility] [address] [id number] [address] [place] [address], [place] [address] Jun, [facility] [address] [id number] [address] [place] [address], [place] [address] Jun, [facility] [address] [id number] [address] [place] [address], [place] [address] May, [facility] [address] [id number] [address] [place] [address], [place] [address] May, [facility] [address] [id number] [address] [place] [address], [place] [address] Mar, [facility] [address] [id number] [address] [place] [address], [place] [address] Mar, [facility] [address] [id number] [address] [place] [address], [place] [address] Feb, [facility] [address] [id number] [address] [place] [address], [place] [address] Feb, [facility] [address] [id number] [address] [place] [address], [place] [address] Feb, [facility] [address] [id number] [address] [place] [address], [place] [address] Feb, [facility] [address] [id number] [address] [place] [address], [place] [address] Feb, [facility] [address] [id number] [address] [place] [address], [place] [address] Jul, [facility] [address] [id number] [address] [place] [address], [place] [address] Jul, [facility] [address] [id number] [address] [place] [address], [place] [address] Jun, [facility] [address] [id number] [address] [place] [address], [place] [address] Jun, [facility] [address] [id number] [address] [place] [address], [place] [address] May, [facility] [address] [id number] [address] [place] [address] Jun, [facility] [address] [id number] [address] [place] [address], [place] [address] May, [facility] [address] [id number] [address] [place] [address] Mar, [facility] [address] [id number] [address] [place] [address], [place] [address] Jul, [facility] [place] [facility] [address] [id number] [address] [place] [address], [place] [address] Jun, [facility] [place] [facility] [address] [id number] [address] [place] [address], [place] [address] May, [facility] [address] [id number] [address] [place] [address], [place] [address] 12 May, 2009 IMMUNIZATIONS No Known Immunizations SOCIAL HISTORY Never [...]
--- OUTSIDE RECORDS SUMMARY | 2020-02-05 08:13 | XMS REPORT ---
Author Author Drew Ulloa [facility] Address [address] [place] [address] Care Team Providers Care Behavior Clinician Name Role Phone SAYRA Ulloa Unavailable PROBLEMS Type Condition ICD9-CM Code SJG70-HC Code Onset Dates Condition S tatus SNOMED Code Problem Obesity E66.9 Active 756461283 Problem Seasonal allergic rhinitis due to pollen J30.1 Active 09387428 Problem Borderline personality disorder F60.3 Active 61993838 Problem Hypertriglyceridemia E78.1 Active 083933756 Problem Migraine without aura and without status migrain osus, not intractable G43.009 Active 569021363 Problem Marijuana use, episodic F12.90 Active 046619458 Problem Mild intermittent asthma with acute exacerbation J 45.21 Active 968669453 Problem Major depressive disorder, recurrent, moderate F33 .1 Active 88553775 Problem Mild intermittent asthma with acute exacerbation J 45.21 Active 274343617 Problem Bipolar II disorder F31.81 Active 96557960 Problem Erectile dysfunction, unspecified erectile dysfunction typ e N52.9 Active 133337703 Problem Tobacco abuse Z72.0 Active 039296 000 Problem Mood disorder F39 Active 731899 05 Problem Psychosexual dysfunction F52.9 Activ e [id number] ALLERGIES No Information ENCOUNTERS Encounter Location Date Diagnosis [facility] [address] [facility] [id number] [address] [place] [phone] Feb, [facility] [address] [facility] [id number] [address] [place] [address] Feb, [place] [id number] [facility] [id number] [address] [place] [address] Jan, Borderline personality disor laura F60.3 [facility] [address] [facility] [id number] [address] [place] [address] Jan, Mood disorder F39 and Border line personality disorder F60.3 [facility] [address] [facility] [id number] [address] [place] [address] Nov, Bronchitis J40 [facility] [address] [facility] [id number] [address] [place] [address] Nov, [facility] [address] [facility] [id number] [address] [place] [address] Oct, Body aches R52 and Viral ill ness B34.9 [facility] [address] [facility] [id number] [address] [place] [address] Jul, Body aches R52 and Viral gas troenteritis A08.4 [facility] [address] [facility] [id number] [address] [place] [address] May, Borderline personality disor laura F60.3 [facility] [address] [place] [id number] [address] [place] [address] Mar, Borderline personality disor laura F60.3 [facility] [address] [facility] [id number] [address] [place] [address] Feb, Psychosexual dysfunction F52 .9 ; Mood disorder F39 and Borderline personality disorder F60.3 [facility] [address] [facility] [id number] [address] [place] [address] Feb, [facility] [address] [facility] [id number] [address] [place] [address] Feb, Mild intermittent asthma wit h acute exacerbation J45.21 [facility] [address] [facility] [id number] [address] [place] [address] Feb, Borderline personality disor laura F60.3 [facility] [address] [facility] [id number] [address] [place] [address] Jan, Borderline personality disor laura F60.3 [facility] [address] [facility] [id number] [address] [place] [address] Jan, Psychosexual dysfunction F52 .9 ; Mood disorder F39 and Borderline personality disorder F60.3 [facility] [address] [id number] [address] [place] [address] Jan, Erectile dysfunction, unspec ified erectile dysfunction type N52.9 ; Pre-syncope R55 ; Migraine without aura and without status migrainosus, not intractable G43.009 ; Low back pain M54.5 and Other chronic pain G89.29 [facility] [address] [id number] [address] [place] [address] Jan, Borderline personality disor laura F60.3 [facility] [address] [facility] [id number] [address] [place] [address] Jan, Psychosexual dysfunction F52 .9 ; Mood disorder F39 and Borderline personality disorder F60.3 [facility] [address] [facility] [id number] [address] [place] [address] December, Borderline personality disor laura F60.3 [facility] [address] [facility] [id number] [address] [place] [address] December, Borderline personality disor laura F60.3 [facility] [address] [facility] [id number] [address] [place] [address] Oct, Borderline personality disor laura F60.3 [facility] [address] [facility] [id number] [address] [place] [address] Sep, [facility] [address] [id number] [address] [place] [address] Aug, Mood disorder F39 and Border line personality disorder F60.3 [facility] [address] [id number] [address] [place] [address] Aug, Acute midline low back pain without sciatica M54.5 [facility] [address] [facility] [id number] [address] [place] [address] Aug, Acute midline low back pain without sciatica M54.5 [facility] [address] [facility] [id number] [address] [place] [address] Jul, Migraine without aura and wi thout status migrainosus, not intractable G43.009 [facility] [address] [facility] [id number] [address] [place] [address] Jul, Borderline personality disor laura F60.3 [facility] [address] [facility] [id number] [address] [place] [address] Jul, Insulin resistance E88.81 an d Erectile dysfunction, unspecified erectile dysfunction type N52.9 [facility] [address] [facility] [id number] [address] [place] [address] 10 Jul, 2018 Acute midline low back pain without sciatica M54.5 [facility] [address] [place] [id number] [place] [address] Jul, Migraine without aura and wi thout status migrainosus, not intractable G43.009 [facility] [address] [facility] [id number] [address] [place] [address] May, Acute midline low back pain without sciatica M54.5 [facility] [address] [facility] [id number] [address] [place] [address] May, Cough R05 and Acute nasophar yngitis J00 [facility] [address] [place] [id number] [address] [place] [id number] Mar, Dental examination Z01.20 an d Caries K02.9 [facility] [address] [facility] [id number] [address] [place] [address] Mar, Insulin resistance E88.81 ; Acute midline low back pain without sciatica M54.5 and Chronic fatigue R53.82 [facility] [address] [facility] [id number] [address] [place] [address] Mar, Borderline personality disor laura F60.3 [facility] [address] [facility] [id number] [address] [place] [address] Feb, [facility] [address] [address] Feb, Borderline personality disor laura F60.3 and Hypertriglyceridemia E78.1 [place] [address] [address] Jan, Borderline personality disor laura F60.3 and Hypertriglyceridemia E78.1 [place] [address] [address] December, Erectile dysfunction, unspec ified erectile dysfunction type N52.9 [place] [address] [address] December, Migraine without aura and wi thout status migrainosus, not intractable G43.009 ; Seasonal allergic rhinitis due to pollen J30.1 ; Erectile dysfunction, unspecified erectile dysfunction type N52.9 ; Tobacco abuse Z72.0 ; Tobacco abuse counseling Z71.6 and Marijuana use, episodic F12.90 [place] [address] [address] December, Borderline personality disor laura F60.3 [place] [address] [address] Nov, Borderline personality disor laura F60.3 [place] [address] [address] Nov, Migraine without aura and wi thout status migrainosus, not intractable G43.009 ; Hypertriglyceridemia E78.1 ; Seasonal allergic rhinitis due to pollen J30.1 ; Major depressive disorder, recurrent, moderate F33.1 ; Other obesity due to excess calories E66.09 and Body mass index (BMI) of 32.0- 32.9 in adult Z68.32 [facility] [address] [address] Oct, Low back pain M54.5 [facility] [address] [address] Sep, Borderline personality disor laura F60.3 [facility] [address] [facility] [id number] [address] [place] [address] Aug, Insulin resistance E88.81 ; Hypertriglyceridemia E78.1 ; Obesity E66.9 ; Major depressive disorder, recurrent, moderate F33.1 and Borderline personality disorder F60.3 [facility] [address] [facility] [id number] [address] [place] [address] Aug, Borderline personality disor lauar F60.3 [facility] [address] [facility] [id number] [address] [place] [address] Jun, Borderline personality disor laura F60.3 [facility] [address] [facility] [id number] [address] [place] [address] May, Borderline personality disor laura F60.3 [facility] [address] [place] [id number] [address] [place] [address] Apr, Insulin resistance E88.81 an d Hyperlipemia E78.5 [facility] [address] [facility] [id number] [address] [place] [address] Mar, Strain of muscle, fascia and tendon of lower back, sequela S39.012S [facility] [address] [facility] [id number] [address] [place] [address] Mar, Borderline personality disor laura F60.3 [facility] [address] [facility] [id number] [address] [place] [address] Jan, Borderline personality disor laura F60.3 [facility] [address] [facility] [id number] [address] [place] [address] December, [facility] [address] [place] [id number] [address] [place] [address] December, Insulin resistance E88.81 ; Hyperlipemia E78.5 ; Obesity E66.9 ; Thoracic spine pain M54.6 and Low back pain M54.5 [facility] [address] [facility] [id number] [address] [place] [address] December, Borderline personality disor laura F60.3 [facility] [address] [place] [id number] [address] [place] [address] Nov, Bipolar II disorder F31.81 a nd Personality disorder F60.9 [facility] [address] [place] [id number] [address] [place] [address] Nov, Borderline personality disor laura F60.3 [place] [address] [place] [id number] [address] [place] [address] Oct, Bipolar II disorder F31.81 a nd Personality disorder F60.9 [place] [address] [address] Oct, Borderline personality disor laura F60.3 [facility] [place] [address] [address] Sep, Pain of left lower leg M79.6 62 [facility] [address] [address] 07 Sep, 2016 Sore throat J02.9 ; Body ach es R52 and Acute non- recurrent maxillary sinusitis J01.00 [place] [address] [place] [id number] [address] [place] [address] 07 Sep, 2016 Borderline personality disor laura F60.3 [place] [address] [address] Aug, Insulin resistance E88.81 ; Obesity E66.9 ; Personality disorder F60.9 ; Hyperlipemia E78.5 and Seasonal allergic rhinitis due to pollen J30.1 [place] [address] [place] [id number] [address] [place] [address] Aug, Borderline personality disor laura F60.3 [place] [address] [place] [id number] [address] [place] [address] Jul, Borderline personality disor laura F60.3 and Recurrent major depressive disorder, in partial remission F33.[address] [address] 19 Jul, 2016 Bipolar disorder F31.9 ; Sev ere episode of recurrent major depressive disorder, with psychotic features F33.3 and Personality disorder F60.[address] [address] 14 Jul, 2016 Borderline personality disor laura F60.[address] [address] 05 Jul, 2016 Bipolar disorder F31.9 ; Par anoid schizophrenia F20.0 ; Dissociative and conversion disorder, 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 and Severe episode of recurrent major depressive disorder, with psychotic features F33.3 [facility] [address] [address] Jun, Acute upper respiratory infe ction, unspecified J06.9 and Other viral agents as the cause of diseases classified elsewhere B97.[address] [address] May, Insulin resistance E88.81 ; Hyperlipemia E78.5 and Joint pain M25.[address] [address] Feb, Insulin resistance E88.81 ; Hyperlipemia E78.5 ; Sore throat J02.9 and Abscess L02.[address] [address] Nov, Obesity E66.9 ; Personality disorder F60.9 ; Metabolic syndrome E88.81 and Hyperlipemia E78.[address] [address] 29 Oct, 2015 Routine health maintenance Z 00.00 ; Bipolar disorder F31.9 ; Personality disorder F60.9 ; Family history of diabetes mellitus Z83.3 ; Family history of essential hypertension Z82.49 ; Joint pain M25.[address] [facility] [address] [id number] [address] [place] [address] 15 Jul, 2015 Major depressive disorder, r ecurrent, moderate F33.1 ; Borderline personality disorder F60.[address] [facility] [address] [facility] [id number] [address] [place] [address] Jun, Borderline personality disor laura F60.3 ; Major depressive disorder, recurrent, moderate F33.[address] [facility] [address] [facility] [id number] [address] [place] [address] Jun, Persistent mood [affective] disorder, unspecified F34.9 [facility] [address] [facility] [id number] [address] [place] [address] Nov, [facility] [address] [facility] [id number] [address] [place] [address] Nov, [facility] [address] [facility] [id number] [address] [place] [address] Sep, [facility] [address] [facility] [id number] [address] [place] [address] Sep, [facility] [address] [facility] [id number] [address] [place] [address] Jul, [facility] [address] [facility] [id number] [address] [place] [address] Jul, [facility] [address] [facility] [id number] [address] [place] [address] Jul, [facility] [address] [facility] [id number] [address] [place] [address] Jul, [facility] [address] [facility] [id number] [address] [place] [address] Jul, [facility] [address] [facility] [id number] [address] [place] [address] Jul, [facility] [address] [facility] [id number] [address] [place] [address] Jun, [facility] [address] [id number] [address] [place] [address], [place] [address] Jan, [facility] [address] [id number] [address] [place] [address], [place] [address] Jan, [facility] [address] [id number] [address] [place] [address], [place] [address] December, [facility] [address] [id number] [address] [place] [address], [place] [address] December, [facility] [address] [id number] [address] [place] [address], [place] [address] Nov, [facility] [address] [id number] [address] [place] [address], [place] [address] Nov, [facility] [address] [id number] [address] [place] [address], [place] [address] Aug, [facility] [address] [id number] [address] [place] [address], [place] [address] Aug, [facility] [address] [id number] [address] [place] [address], [place] [address] Jul, [facility] [address] [id number] [address] [place] [address], [place] [address] Jul, [facility] [address] [id number] [address] [place] [address], [place] [address] Jun, [facility] [address] [id number] [address] [place] [address], [place] [address] Jun, [facility] [address] [id number] [address] [place] [address], [place] [address] Jun, [facility] [address] [id number] [address] [place] [address], [place] [address] Jun, [facility] [address] [id number] [address] [place] [address], [place] [address] May, [facility] [address] [id number] [address] [place] [address], [place] [address] May, [facility] [address] [id number] [address] [place] [address], [place] [address] Mar, [facility] [address] [id number] [address] [place] [address], [place] [address] Mar, [facility] [address] [id number] [address] [place] [address], [place] [address] Feb, [facility] [address] [id number] [address] [place] [address], [place] [address] Feb, [facility] [address] [id number] [address] [place] [address], [place] [address] Feb, [facility] [address] [id number] [address] [place] [address], [place] [address] Feb, [facility] [address] [id number] [address] [place] [address], [place] [address] Feb, [facility] [address] [id number] [address] [place] [address], [place] [address] Jul, [facility] [address] [id number] [address] [place] [address], [place] [address] Jul, [facility] [address] [id number] [address] [place] [address], [place] [address] Jun, [facility] [address] [id number] [address] [place] [address], [place] [address] Jun, [facility] [address] [id number] [address] [place] [address], [place] [address] May, [facility] [address] [id number] [address] [place] [address], [place] [address] Jun, [facility] [address] [id number] [address] [place] [address], [place] [address] May, [facility] [address] [id number] [address] [place] [address] [address] Mar, [facility] [address] [facility] [id number] [address] [place] [id number] Jul, [facility] [address] [facility] [id number] [address] [place] [phone] Jun, [facility] [address] [facility] [id number] [address] [place] [id number] May, [facility] [address] [facility] [id number] [address] [place] [phone] May, IMMUNIZATIONS No Known Immunizations SOCIAL HISTORY [...]
--- OUTSIDE RECORDS SUMMARY | 2020-02-05 08:13 | XMS REPORT ---
Author Author Drew Groves Doctor Organization [facility] Address Unknown Phone Unavailable Care Team Providers Care Wireless Sales Expert Name Role Phone Migration, Doctor Unavailable Unavailable PROBLEMS Type Condition ICD9-CM Code ZFF68-YF Code Onset Dates Condition S tatus SNOMED Code Problem Obesity E66.9 Active 906281145 Problem Seasonal allergic rhinitis due to pollen J30.1 Active 58851095 Problem Borderline personality disorder F60.3 Active 01874852 Problem Hypertriglyceridemia E78.1 Active 429284469 Problem Migraine without aura and without status migrain osus, not intractable G43.009 Active 979369851 Problem Marijuana use, episodic F12.90 Active 245555744 Problem Mild intermittent asthma with acute exacerbation J 45.21 Active 376397042 Problem Major depressive disorder, recurrent, moderate F33 .1 Active 80685398 Problem Mild intermittent asthma with acute exacerbation J 45.21 Active 783060763 Problem Bipolar II disorder F31.81 Active 55976523 Problem Erectile dysfunction, unspecified erectile dysfunction typ e N52.9 Active 510544654 Problem Tobacco abuse Z72.0 Active 895317 000 Problem Mood disorder F39 Active 986410 05 Problem Psychosexual dysfunction F52.9 Activ e [id number] ALLERGIES No Information ENCOUNTERS Encounter Location Date Diagnosis [facility] [address] [facility] [id number] [address] [place] [address] Feb, [facility] [address] [facility] [id number] [address] [place] [address] Feb, [facility] [address] [facility] [id number] [address] [place] [address] Jan, Borderline personality disor laura F60.3 [facility] [address] [facility] [id number] [address] [place] [address] 10 Jan, 2020 Mood disorder F39 and Border line personality disorder F60.3 [facility] [address] [facility] [id number] [address] [place] [address] Nov, Bronchitis J40 [facility] [address] [facility] [id number] [address] [place] [address] Nov, [facility] [address] [facility] [id number] [address] [place] [address] Oct, Body aches R52 and Viral ill ness B34.9 [facility] [address] [facility] [id number] [address] [place] [address] Jul, Body aches R52 and Viral gas troenteritis A08.4 [facility] [address] [facility] [id number] [address] [place] [address] May, Borderline personality disor laura F60.3 [place] [address] [place] [id number] [address] [place] [address] Mar, Borderline personality disor laura F60.3 [place] [address] [place] [id number] [address] [place] [address] Feb, Psychosexual dysfunction F52 .9 ; Mood disorder F39 and Borderline personality disorder F60.3 [place] [address] [place] [id number] [address] [place] [address] Feb, [facility] [address] [place] [id number] [address] [place] [address] Feb, Mild intermittent asthma wit h acute exacerbation J45.21 [place] [id number] [place] [address] Feb, Borderline personality disor laura F60.3 [place] [address] [place] [id number] [address] [place] [address] Jan, Borderline personality disor laura F60.3 [place] [address] [place] [id number] [address] [place] [address] Jan, Psychosexual dysfunction F52 .9 ; Mood disorder F39 and Borderline personality disorder F60.3 [place] [id number] [place] [address] Jan, Erectile dysfunction, unspec ified erectile dysfunction type N52.9 ; Pre-syncope R55 ; Migraine without aura and without status migrainosus, not intractable G43.009 ; Low back pain M54.5 and Other chronic pain G89.29 [facility] [address] [facility] [id number] [address] [place] [address] Jan, Borderline personality disor laura F60.3 [facility] [address] [place] [id number] [address] [place] [address] Jan, Psychosexual dysfunction F52 .9 ; Mood disorder F39 and Borderline personality disorder F60.3 [place] [address] [place] [id number] [address] [place] [address] December, Borderline personality disor laura F60.3 [place] [address] [place] [id number] [address] [place] [address] December, Borderline personality disor laura F60.3 [facility] [address] [place] [id number] [address] [place] [address] Oct, Borderline personality disor laura F60.3 [place] [address] [place] [id number] [address] [place] [address] Sep, [place] [address] [place] [id number] [address] [place] [address] Aug, Mood disorder F39 and Border line personality disorder F60.3 [facility] [address] [place] [id number] [address] [place] [address] Aug, Acute midline low back pain without sciatica M54.5 [facility] [address] [place] [id number] [address] [place] [address] Aug, Acute midline low back pain without sciatica M54.5 [facility] [address] [facility] [id number] [address] [place] [address] Jul, Migraine without aura and wi thout status migrainosus, not intractable G43.009 [facility] [address] [facility] [id number] [address] [place] [address] Jul, Borderline personality disor laura F60.3 [facility] [address] [facility] [id number] [address] [place] [address] Jul, Insulin resistance E88.81 an d Erectile dysfunction, unspecified erectile dysfunction type N52.9 [facility] [address] [place] [id number] [address] [place] [address] Jul, Acute midline low back pain without sciatica M54.5 [facility] [address] [facility] [id number] [address] [place] [address] Jul, Migraine without aura and wi thout status migrainosus, not intractable G43.009 [facility] [address] [facility] [id number] [address] [place] [address] May, Acute midline low back pain without sciatica M54.5 [facility] [address] [facility] [id number] [address] [place] [address] May, Cough R05 and Acute nasophar yngitis J00 [facility] [address] [place] [id number] [place] [id number] Mar, Dental examination Z01.20 an d Caries K02.9 [facility] [address] [facility] [id number] [address] [place] [address] Mar, Insulin resistance E88.81 ; Acute midline low back pain without sciatica M54.5 and Chronic fatigue R53.82 [facility] [address] [facility] [id number] [address] [place] [address] Mar, Borderline personality disor laura F60.3 [facility] [address] [place] [id number] [address] [place] [address] Feb, [facility] [address] [place] [id number] [address] [place] [address] Feb, Borderline personality disor laura F60.3 and Hypertriglyceridemia E78.1 [place] [address] [address] Jan, Borderline personality disor laura F60.3 and Hypertriglyceridemia E78.1 [facility] [address] [address] December, Erectile dysfunction, unspec ified erectile dysfunction type N52.9 [facility] [address] [address] December, Migraine without aura and wi thout status migrainosus, not intractable G43.009 ; Seasonal allergic rhinitis due to pollen J30.1 ; Erectile dysfunction, unspecified erectile dysfunction type N52.9 ; Tobacco abuse Z72.0 ; Tobacco abuse counseling Z71.6 and Marijuana use, episodic F12.90 [place] [address] [address] December, Borderline personality disor laura F60.3 [place] [address] [address] Nov, Borderline personality disor laura F60.3 [place] [address] [address] Nov, Migraine without aura and wi thout status migrainosus, not intractable G43.009 ; Hypertriglyceridemia E78.1 ; Seasonal allergic rhinitis due to pollen J30.1 ; Major depressive disorder, recurrent, moderate F33.1 ; Other obesity due to excess calories E66.09 and Body mass index (BMI) of 32.0- 32.9 in adult Z68.32 [facility] [address] [place] [id number] [address] [place] [address] Oct, Low back pain M54.5 [facility] [address] [place] [id number] [place] [address] Sep, Borderline personality disor laura F60.3 [place] [address] [address] Aug, Insulin resistance E88.81 ; Hypertriglyceridemia E78.1 ; Obesity E66.9 ; Major depressive disorder, recurrent, moderate F33.1 and Borderline personality disorder F60.3 [facility] [address] [facility] [id number] [address] [place] [address] Aug, Borderline personality disor laura F60.3 [facility] [address] [facility] [id number] [address] [place] [address] Jun, Borderline personality disor laura F60.3 [facility] [address] [facility] [id number] [address] [place] [address] May, Borderline personality disor laura F60.3 [facility] [address] [facility] [id number] [address] [place] [address] Apr, Insulin resistance E88.81 an d Hyperlipemia E78.5 [facility] [address] [facility] [id number] [address] [place] [address] Mar, Strain of muscle, fascia and tendon of lower back, sequela S39.012S [facility] [address] [place] [id number] [address] [place] [address] Mar, Borderline personality disor laura F60.3 [facility] [address] [place] [id number] [address] [place] [address] Jan, Borderline personality disor laura F60.3 [facility] [id number] [place] [address] December, [facility] [address] [facility] [id number] [address] [place] [address] December, Insulin resistance E88.81 ; Hyperlipemia E78.5 ; Obesity E66.9 ; Thoracic spine pain M54.6 and Low back pain M54.5 [facility] [address] [facility] [id number] [address] [place] [address] December, Borderline personality disor laura F60.3 [facility] [address] [address] Nov, Bipolar II disorder F31.81 a nd Personality disorder F60.9 [place] [address] [address] Nov, Borderline personality disor laura F60.3 [place] [address] [address] Oct, Bipolar II disorder F31.81 a nd Personality disorder F60.9 [place] [address] [address] Oct, Borderline personality disor laura F60.3 [facility] [place] [address] [address] Sep, Pain of left lower leg M79.6 [address] [facility] [place] [address] [address] Sep, Sore throat J02.9 ; Body ach es R52 and Acute non- recurrent maxillary sinusitis J01.00 [place] [address] [address] Sep, Borderline personality disor laura F60.3 [place] [address] [address] Aug, Insulin resistance E88.81 ; Obesity E66.9 ; Personality disorder F60.9 ; Hyperlipemia E78.5 and Seasonal allergic rhinitis due to pollen J30.1 [place] [address] [address] Aug, Borderline personality disor laura F60.3 [place] [address] [address] Jul, Borderline personality disor laura F60.3 and Recurrent major depressive disorder, in partial remission F33.41 [place] [address] [address] Jul, Bipolar disorder F31.9 ; Sev ere episode of recurrent major depressive disorder, with psychotic features F33.3 and Personality disorder F60.9 [facility] [address] [address] 14 Jul, 2016 Borderline personality disor laura F60.3 [facility] [address] [address] 05 Jul, 2016 Bipolar disorder F31.9 ; Par anoid schizophrenia F20.0 ; Dissociative and conversion disorder, 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 and Severe episode of recurrent major depressive disorder, with psychotic features F33.3 [facility] [address] [address] 30 Jun, 2016 Acute upper respiratory infe ction, unspecified J06.9 and Other viral agents as the cause of diseases classified elsewhere B97.89 [place] [address] [address] May, Insulin resistance E88.81 ; Hyperlipemia E78.5 and Joint pain M25.50 [place] [address] [address] Feb, Insulin resistance E88.81 ; Hyperlipemia E78.5 ; Sore throat J02.9 and Abscess L02.91 [place] [address] [place] [id number] [address] [place] [address] Nov, Obesity E66.9 ; Personality disorder F60.9 ; Metabolic syndrome E88.81 and Hyperlipemia E78.5 [place] [address] [place] [id number] [address] [place] [address] 29 Oct, 2015 Routine health maintenance Z 00.00 ; Bipolar disorder F31.9 ; Personality disorder F60.9 ; Family history of diabetes mellitus Z83.3 ; Family history of essential hypertension Z82.49 ; Joint pain M25.50 and Obesity E66.9 [place] [address] [address] Jul, Major depressive disorder, r ecurrent, moderate F33.1 ; Borderline personality disorder F60.3 and Psychosis F29 [facility] [address] [id number] [address] [place] [address] Jun, Borderline personality disor laura F60.3 ; Major depressive disorder, recurrent, moderate F33.1 and Psychosis F29 [facility] [address] [id number] [address] [place] [address] Jun, Persistent mood [affective] disorder, unspecified F34.9 [facility] [address] [id number] [address] [place] [address] Nov, [facility] [address] [facility] [id number] [address] [place] [address] Nov, [facility] [address] [facility] [id number] [address] [place] [address] Sep, [facility] [address] [facility] [id number] [address] [place] [address] Sep, [facility] [address] [facility] [id number] [address] [place] [address] Jul, [facility] [address] [facility] [id number] [address] [place] [address] Jul, [facility] [address] [facility] [id number] [address] [place] [address] Jul, [facility] [address] [facility] [id number] [address] [place] [address] Jul, [facility] [address] [facility] [id number] [address] [place] [address] Jul, [facility] [address] [facility] [id number] [address] [place] [address] Jul, [facility] [address] [facility] [id number] [address] [place] [address] Jun, [facility] [address] [facility] [id number] [address] [place] [address] Jan, [facility] [address] [id number] [address] [place] [address], [place] [address] Jan, [facility] [address] [id number] [address] [place] [address] December, [facility] [address] [id number] [address] [place] [address], [place] [address] December, [facility] [address] [id number] [address] [place] [address], [place] [address] Nov, [facility] [address] [id number] [address] [place] [address], [place] [address] Nov, [facility] [address] [id number] [address] [place] [address], [place] [address] Aug, [facility] [address] [id number] [address] [place] [address] Aug, [facility] [address] [id number] [address] [place] [address], [place] [address] Jul, [facility] [address] [id number] [address] [place] [address], [place] [address] Jul, [facility] [address] [id number] [address] [place] [address], [place] [address] Jun, [facility] [address] [id number] [address] [place] [address], [place] [address] Jun, [facility] [address] [id number] [address] [place] [address] Jun, [facility] [address] [id number] [address] [place] [address], [place] [address] Jun, [facility] [address] [id number] [address] [place] [address] May, [facility] [address] [id number] [address] [place] [address] May, [facility] [address] [id number] [address] [place] [address], [place] [address] Mar, [facility] [address] [id number] [address] [place] [address], [place] [address] Mar, [facility] [address] [id number] [address] [place] [address], [place] [address] Feb, [facility] [address] [id number] [address] [place] [address], [place] [address] Feb, [facility] [address] [id number] [address] [place] [address], [place] [address] Feb, [facility] [address] [id number] [address] [place] [address], [place] [address] Feb, [facility] [address] [id number] [address] [place] [address], [place] [address] Feb, [facility] [address] [id number] [address] [place] [address], [place] [address] Jul, [facility] [address] [id number] [address] [place] [address], [place] [address] Jul, [facility] [address] [id number] [address] [place] [address], [place] [address] Jun, [facility] [address] [id number] [address] [place] [address], [place] [address] Jun, [facility] [address] [id number] [address] [place] [address], [place] [address] May, [facility] [address] [id number] [address] [place] [address], [place] [address] Jun, [facility] [address] [id number] [address] [place] [address], [place] [address] May, [facility] [address] [id number] [address] [place] [address], [place] [address] Mar, [facility] [address] [id number] [address] [place] [address] [address] Jul, [facility] [address] [facility] [id number] [address] [place] [address] Jun, [facility] [address] [facility] [id number] [address] [place] [address] May, [facility] [address] [facility] [id number] [address] [place] [address] May, IMMUNIZATIONS No Known Immunizations SOCIAL HISTORY [...]
--- OUTSIDE RECORDS SUMMARY | 2020-02-05 08:13 | XMS REPORT ---
Author Author Drew Groves Doctor Organization [facility] Address Unknown Phone Unavailable Care Team Providers Care Director Of Labor And Delivery Name Role Phone Migration, Doctor Unavailable Unavailable PROBLEMS Type Condition ICD9-CM Code KYV19-PC Code Onset Dates Condition S tatus SNOMED Code Problem Obesity E66.9 Active 186644060 Problem Seasonal allergic rhinitis due to pollen J30.1 Active 49087950 Problem Borderline personality disorder F60.3 Active 43549925 Problem Hypertriglyceridemia E78.1 Active 055339353 Problem Migraine without aura and without status migrain osus, not intractable G43.009 Active 147350686 Problem Marijuana use, episodic F12.90 Active 730440684 Problem Mild intermittent asthma with acute exacerbation J 45.21 Active 469740668 Problem Major depressive disorder, recurrent, moderate F33 .1 Active 67238171 Problem Mild intermittent asthma with acute exacerbation J 45.21 Active 472154648 Problem Bipolar II disorder F31.81 Active 66118984 Problem Erectile dysfunction, unspecified erectile dysfunction typ e N52.9 Active 656966365 Problem Tobacco abuse Z72.0 Active 190600 000 Problem Mood disorder F39 Active 866914 05 Problem Psychosexual dysfunction F52.9 Activ e [id number] ALLERGIES No Information ENCOUNTERS Encounter Location Date Diagnosis [facility] [address] [facility] [id number] [address] [place] [address] Feb, [facility] [address] [id number] [address] [place] [address] Feb, [facility] [address] [id number] [address] [place] [address] Jan, Borderline personality disor laura F60.3 [facility] [address] [id number] [address] [place] [address] 10 Jan, 2020 Mood disorder F39 and Border line personality disorder F60.3 [facility] [address] [id number] [address] [place] [address] Nov, Bronchitis J40 [facility] [address] [id number] [address] [place] [address] Nov, [facility] [address] [id number] [address] [place] [address] Oct, Body aches R52 and Viral ill ness B34.9 [facility] [address] [id number] [address] [place] [address] Jul, Body aches R52 and Viral gas troenteritis A08.4 [facility] [address] [facility] [id number] [address] [place] [address] May, Borderline personality disor laura F60.3 [place] [address] [place] [id number] [address] [place] [address] Mar, Borderline personality disor laura F60.3 [place] [address] [place] [id number] [address] [place] [address] Feb, Psychosexual dysfunction F52 .9 ; Mood disorder F39 and Borderline personality disorder F60.3 [place] [address] [place] [id number] [address] [place] [address] Feb, [facility] [address] [place] [id number] [address] [place] [address] Feb, Mild intermittent asthma wit h acute exacerbation J45.21 [place] [address] [place] [address] Feb, Borderline personality disor laura F60.3 [place] [address] [place] [id number] [address] [place] [address] Jan, Borderline personality disor laura F60.3 [place] [address] [place] [id number] [address] [place] [address] Jan, Psychosexual dysfunction F52 .9 ; Mood disorder F39 and Borderline personality disorder F60.3 [place] [address] [place] [address] Jan, Erectile dysfunction, unspec ified erectile dysfunction type N52.9 ; Pre-syncope R55 ; Migraine without aura and without status migrainosus, not intractable G43.009 ; Low back pain M54.5 and Other chronic pain G89.29 [facility] [address] [id number] [address] [place] [address] Jan, Borderline personality disor laura F60.3 [facility] [address] [place] [id number] [address] [place] [address] Jan, Psychosexual dysfunction F52 .9 ; Mood disorder F39 and Borderline personality disorder F60.3 [place] [address] [place] [id number] [address] [place] [address] December, Borderline personality disor laura F60.3 [place] [address] [place] [id number] [address] [place] [address] December, Borderline personality disor laura F60.3 [facility] [address] [place] [id number] [address] [place] [address] Oct, Borderline personality disor laura F60.3 [place] [address] [place] [id number] [address] [place] [address] Sep, [place] [address] [place] [id number] [address] [place] [address] Aug, Mood disorder F39 and Border line personality disorder F60.3 [facility] [address] [place] [id number] [address] [place] [address] Aug, Acute midline low back pain without sciatica M54.5 [facility] [address] [place] [id number] [address] [place] [address] Aug, Acute midline low back pain without sciatica M54.5 [facility] [address] [id number] [address] [place] [address] Jul, Migraine without aura and wi thout status migrainosus, not intractable G43.009 [facility] [address] [id number] [address] [place] [address] Jul, Borderline personality disor laura F60.3 [facility] [address] [id number] [address] [place] [address] Jul, Insulin resistance E88.81 an d Erectile dysfunction, unspecified erectile dysfunction type N52.9 [facility] [address] [place] [id number] [address] [place] [address] Jul, Acute midline low back pain without sciatica M54.5 [facility] [address] [id number] [address] [place] [address] Jul, Migraine without aura and wi thout status migrainosus, not intractable G43.009 [facility] [address] [id number] [address] [place] [address] May, Acute midline low back pain without sciatica M54.5 [facility] [address] [id number] [address] [place] [address] May, Cough R05 and Acute nasophar yngitis J00 [facility] [address] [place] [id number] [place] [id number] Mar, Dental examination Z01.20 an d Caries K02.9 [facility] [address] [facility] [id number] [address] [place] [address] Mar, Insulin resistance E88.81 ; Acute midline low back pain without sciatica M54.5 and Chronic fatigue R53.82 [facility] [address] [id number] [address] [place] [address] Mar, Borderline personality disor laura F60.3 [facility] [address] [place] [id number] [address] [place] [address] Feb, [facility] [address] [place] [id number] [address] [place] [address] Feb, Borderline personality disor laura F60.3 and Hypertriglyceridemia E78.1 [place] [address] [address] Jan, Borderline personality disor laura F60.3 and Hypertriglyceridemia E78.1 [facility] [address] [address] December, Erectile dysfunction, unspec ified erectile dysfunction type N52.9 [facility] [address] [address] December, Migraine without aura and wi thout status migrainosus, not intractable G43.009 ; Seasonal allergic rhinitis due to pollen J30.1 ; Erectile dysfunction, unspecified erectile dysfunction type N52.9 ; Tobacco abuse Z72.0 ; Tobacco abuse counseling Z71.6 and Marijuana use, episodic F12.90 [place] [address] [address] December, Borderline personality disor laura F60.3 [place] [address] [address] Nov, Borderline personality disor laura F60.3 [place] [address] [address] Nov, Migraine without aura and wi thout status migrainosus, not intractable G43.009 ; Hypertriglyceridemia E78.1 ; Seasonal allergic rhinitis due to pollen J30.1 ; Major depressive disorder, recurrent, moderate F33.1 ; Other obesity due to excess calories E66.09 and Body mass index (BMI) of 32.0- 32.9 in adult Z68.32 [facility] [address] [place] [id number] [address] [place] [address] Oct, Low back pain M54.5 [facility] [address] [place] [id number] [place] [address] Sep, Borderline personality disor laura F60.3 [place] [address] [address] Aug, Insulin resistance E88.81 ; Hypertriglyceridemia E78.1 ; Obesity E66.9 ; Major depressive disorder, recurrent, moderate F33.1 and Borderline personality disorder F60.3 [facility] [address] [id number] [address] [place] [address] Aug, Borderline personality disor laura F60.3 [facility] [address] [id number] [address] [place] [address] Jun, Borderline personality disor laura F60.3 [facility] [address] [id number] [address] [place] [address] May, Borderline personality disor laura F60.3 [facility] [address] [id number] [address] [place] [address] Apr, Insulin resistance E88.81 an d Hyperlipemia E78.5 [facility] [address] [facility] [id number] [address] [place] [address] Mar, Strain of muscle, fascia and tendon of lower back, sequela S39.012S [facility] [address] [place] [id number] [address] [place] [address] Mar, Borderline personality disor laura F60.3 [facility] [address] [place] [id number] [address] [place] [address] Jan, Borderline personality disor laura F60.3 [facility] [address] [place] [address] December, [facility] [address] [id number] [address] [place] [address] December, Insulin resistance E88.81 ; Hyperlipemia E78.5 ; Obesity E66.9 ; Thoracic spine pain M54.6 and Low back pain M54.5 [facility] [address] [facility] [id number] [address] [place] [address] December, Borderline personality disor laura F60.3 [facility] [address] [address] Nov, Bipolar II disorder F31.81 a nd Personality disorder F60.9 [place] [address] [address] Nov, Borderline personality disor laura F60.3 [place] [address] [address] Oct, Bipolar II disorder F31.81 a nd Personality disorder F60.9 [place] [address] [address] Oct, Borderline personality disor laura F60.3 [facility] [place] [address] [address] Sep, Pain of left lower leg M79.6 62 [facility] [place] [address] [address] Sep, Sore throat J02.9 ; Body ach es R52 and Acute non- recurrent maxillary sinusitis J01.00 [place] [address] [address] Sep, Borderline personality disor laura F60.3 [place] [address] [address] Aug, Insulin resistance E88.81 ; Obesity E66.9 ; Personality disorder F60.9 ; Hyperlipemia E78.5 and Seasonal allergic rhinitis due to pollen J30.1 [place] [address] [address] Aug, Borderline personality disor laura F60.3 [place] [address] [address] Jul, Borderline personality disor larua F60.3 and Recurrent major depressive disorder, in partial remission F33.41 [place] [address] [address] Jul, Bipolar disorder F31.9 ; Sev ere episode of recurrent major depressive disorder, with psychotic features F33.3 and Personality disorder F60.9 [facility] [address] [address] 14 Jul, 2016 Borderline personality disor laura F60.3 [facility] [address] [address] 05 Jul, 2016 Bipolar disorder F31.9 ; Par anoid schizophrenia F20.0 ; Dissociative and conversion disorder, 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 and Severe episode of recurrent major depressive disorder, with psychotic features F33.3 [facility] [address] [address] 30 Jun, 2016 Acute upper respiratory infe ction, unspecified J06.9 and Other viral agents as the cause of diseases classified elsewhere B97.89 [place] [address] [address] May, Insulin resistance E88.81 ; Hyperlipemia E78.5 and Joint pain M25.50 [place] [address] [address] Feb, Insulin resistance E88.81 ; Hyperlipemia E78.5 ; Sore throat J02.9 and Abscess L02.91 [place] [address] [place] [id number] [address] [place] [address] Nov, Obesity E66.9 ; Personality disorder F60.9 ; Metabolic syndrome E88.81 and Hyperlipemia E78.5 [place] [address] [place] [id number] [address] [place] [address] 29 Oct, 2015 Routine health maintenance Z 00.00 ; Bipolar disorder F31.9 ; Personality disorder F60.9 ; Family history of diabetes mellitus Z83.3 ; Family history of essential hypertension Z82.49 ; Joint pain M25.50 and Obesity E66.9 [place] [address] [address] Jul, Major depressive disorder, r ecurrent, moderate F33.1 ; Borderline personality disorder F60.3 and Psychosis F29 [facility] [address] [id number] [address] [place] [address] Jun, Borderline personality disor laura F60.3 ; Major depressive disorder, recurrent, moderate F33.1 and Psychosis F29 [facility] [address] [id number] [address] [place] [address] Jun, Persistent mood [affective] disorder, unspecified F34.9 [facility] [address] [id number] [address] [place] [address] Nov, [facility] [address] [facility] [facility] [id number] [address] [place] [address] Nov, [facility] [address] [facility] [facility] [id number] [address] [place] [address] Sep, [facility] [address] [facility] [facility] [id number] [address] [place] [address] Sep, [facility] [address] [facility] [facility] [id number] [address] [place] [address] Jul, [facility] [address] [facility] [facility] [id number] [address] [place] [address] Jul, [facility] [address] [facility] [id number] [address] [place] [address] Jul, [facility] [address] [facility] [id number] [address] [place] [address] Jul, [facility] [address] [facility] [facility] [id number] [address] [place] [address] Jul, [facility] [address] [facility] [id number] [address] [place] [address] Jul, [facility] [address] [id number] [address] [place] [address] Jun, [facility] [address] [facility] [facility] [id number] [address] [place] [address] Jan, [facility] [address] [id number] [address] [place] [address], [place] [address] Jan, [facility] [address] [id number] [address] [place] [address] December, [facility] [address] [id number] [address] [place] [address], [place] [address] December, [facility] [address] [id number] [address] [place] [address], [place] [address] Nov, [facility] [address] [id number] [address] [place] [address], [place] [address] Nov, [facility] [address] [id number] [address] [place] [address], [place] [address] Aug, [facility] [address] [id number] [address] [place] [address] Aug, [facility] [address] [id number] [address] [place] [address], [place] [address] Jul, [facility] [address] [id number] [address] [place] [address], [place] [address] Jul, [facility] [address] [id number] [address] [place] [address], [place] [address] Jun, [facility] [address] [id number] [address] [place] [address], [place] [address] Jun, [facility] [address] [id number] [address] [place] [address] Jun, [facility] [address] [id number] [address] [place] [address], [place] [address] Jun, [facility] [address] [id number] [address] [place] [address] May, [facility] [address] [id number] [address] [place] [address] May, [facility] [address] [id number] [address] [place] [address], [place] [address] Mar, [facility] [address] [id number] [address] [place] [address], [place] [address] Mar, [facility] [address] [id number] [address] [place] [address], [place] [address] Feb, [facility] [address] [id number] [address] [place] [address], [place] [address] Feb, [facility] [address] [id number] [address] [place] [address], [place] [address] Feb, [facility] [address] [id number] [address] [place] [address], [place] [address] Feb, [facility] [address] [id number] [address] [place] [address], [place] [address] Feb, [facility] [address] [id number] [address] [place] [address], [place] [address] Jul, [facility] [address] [id number] [address] [place] [address], [place] [address] Jul, [facility] [address] [id number] [address] [place] [address], [place] [address] Jun, [facility] [address] [id number] [address] [place] [address], [place] [address] Jun, [facility] [address] [id number] [address] [place] [address], [place] [address] May, [facility] [address] [id number] [address] [place] [address], [place] [address] Jun, [facility] [address] [id number] [address] [place] [address], [place] [address] May, [facility] [address] [id number] [address] [place] [address], [place] [address] Mar, [facility] [address] [id number] [address] [place] [address] [address] Jul, [facility] [address] [facility] [id number] [address] [place] [address] Jun, [facility] [address] [facility] [id number] [address] [place] [address] May, [facility] [address] [facility] [id number] [address] [place] [address] May, IMMUNIZATIONS No Known Immunizations SOCIAL HISTORY Never Assessed REASON FOR VISIT PLAN OF CARE VITAL SIGNS Height 60.75 in 2013-02-05 Weight 210.7 lbs 2013-02-05 Temperature 96.8 degrees Fahrenheit 2013-02-05 Heart Rate 64 bpm 2013-02-05 Respiratory Rate 20 2013-02-05 Blood pressure systolic 129 mmHg 2013-02-05 Blood pressure diastolic 81 mmHg 2013-02-05 MEDICATIONS Unknown Medications RESULTS No Results PROCEDURES [...]
--- OUTSIDE RECORDS SUMMARY | 2020-02-05 08:17 | XMS REPORT | Continuity of Care Document ---
Demographics Preferred Language Unknown Marital Status Unknown Mormon Affiliation Unknown Race Unknown Ethnic Group Unknown Author Organization Unknown Address Unknown Phone Unavailable Allergies Active Description Code Type Severity Reaction Onset Reported/Identified Relationship to Patient Clinical Status Yes No Known Drug Allergies [id number] Drug Allergy Mild N/A 12/19/2008 Yes Fanapt [...] (CURRENT) USE OF OTHER MEDICATIONS 09/21/2008 RODNEY ALVARZE APRN V58.69 LONG-TERM (CURRENT) USE OF OTHER MEDICATIONS 09/21/2008 RODNEY ALVAREZ APRN V58.69 LONG-TERM (CURRENT) USE OF OTHER MEDICATIONS 09/21/2008 RODNEY ALVAREZ APRN V58.69 LONG-TERM (CURRENT) USE OF OTHER MEDICATIONS 09/21/2008 RODNEY ALVAREZ APRN V58.69 LONG-TERM (CURRENT) USE OF OTHER MEDICATIONS 09/21/2008 JOSE BALES MD V58.6 9 LONG-TERM (CURRENT) USE OF OTHER MEDICATIONS 09/21/2008 TARYN ROME V58.69 LONG-TERM (CURRENT) USE OF OTHER MEDICATIONS [...] MO BIPOLAR I DEPRESSED UNSPECIFIED 05/02/2009 ALVAREZ COMPLIANCE TESTING ANALYST, RODNEY ECHAVARRIA 296.50 MO BIPOLAR I DEPRESSED UNSPECIFIED 05/02/2009 ALVAREZ COMPLIANCE TESTING ANALYST, RODNEY JERICHO 296.50 MO BIPOLAR I DEPRESSED UNSPECIFIED 05/02/2009 ALVAREZ COMPLIANCE TESTING ANALYST, RODNEY ECHAVARRIA 296.50 MO BIPOLAR I DEPRESSED UNSPECIFIED 05/02/2009 ALVAREZ COMPLIANCE TESTING ANALYST, RODNEY ECHAVARRIA 296.50 MO BIPOLAR I DEPRESSED [...] JERICHO 296.89 MO BIPOLAR II 11/23/2009 ALVAREZ COMPLIANCE TESTING ANALYSTRODNEY Morales 301.9 PD PERS DIS NOS 11/23/2009 ALVAREZ COMPLIANCE TESTING ANALYST, RODNEY ECHAVARRIA 296.89 MO BIPOLAR II 11/23/2009 ALVAREZ COMPLIANCE TESTING ANALYST, RODNEY LALAH 301.9 PD PERS DIS NOS 11/23/2009 ALVAREZ COMPLIANCE TESTING ANALYST, RODNEY LALAH 296.89 MO BIPOLAR II 11/23/2009 ALVAREZ COMPLIANCE TESTING ANALYST, RODNEY LALAH 301.9 PD PERS DIS NOS 11/23/2009 ALVAREZ COMPLIANCE TESTING ANALYST, RODNEY ECHAVARRIA 296.89 MO BIPOLAR II 11/23/2009 ANTONIO COMPLIANCE TESTING ANALYST, RODNEY JERICHO 301.9 PD PERS DIS NOS [...] .70 SCHIZOAFFECTIVE DISORDER UNSPECIFIED STATE 10/02/2010 ALVAREZ COMPLIANCE TESTING ANALYST, RODNEY ECHAVARRIA 295.70 SCHIZOAFFECTIVE DISORDER UNSPECIFIED STATE 10/02/2010 ALVAREZ COMPLIANCE TESTING ANALYST, RODNEY JERICHO 295.70 SCHIZOAFFECTIVE DISORDER UNSPECIFIED STATE 10/02/2010 ALVAREZ COMPLIANCE TESTING ANALYST, RODNEY ECHAVARRIA 295.70 SCHIZOAFFECTIVE DISORDER UNSPECIFIED STATE 10/02/2010 ALVAREZ COMPLIANCE TESTING ANALYST, RODNEY JERICHO 295.70 SCHIZOAFFECTIVE DISORDER UNSPECIFIED STATE [...] ONYCHIA AND PARONYCHIA OF FINGER 09/28/2013 JORDAN GRADINER, JANES Lincoln Ot 729.5 09/28/2013 JORDAN GARDINER, [...] Ot M79.632 PAIN IN LEFT FOREARM 04/25/2016 JAEL RICE APRN Ot R07.89 OTHER CHEST [...] IDEATIONS 02/13/2019 JAEL RICE APRN Ot Z79.84 SHAPE CARVER (CURRENT) USE OF ORAL HYPOGLYC 02/13/2019 JAEL [...] IDEATIONS 02/19/2019 JAEL RICE APRN Ot Z79.84 SHAPE CARVER (CURRENT) USE OF ORAL HYPOGLYC 02/19/2019 JAEL RICE APRN Ot Z86.73 PRSNL HX OF TIA (TIA), AND CEREB INFRC W 02/19/2019 JAEL RICE COMPLIANCE TESTING ANALYST Ot Z90.49 ACQUIRED ABSENCE OF OTHER SPECIFIED PART 08/03/2019 JAEL RICE COMPLIANCE TESTING ANALYST Ot F17.290 NICOTINE DEPENDENCE, OTHER TOBACCO PRODU [...] OF OTHER SPECIFIED PART 09/29/2019 KAVITHA LIU K Ot I10 ESSENTIAL (PRIMARY) HYPERTENSION 09/29/2019 NGOC JUSTICE, KAVITHA K Ot R06.02 SHORTNESS OF BREATH 09/29/2019 NGOC JSUTICE, KAVITHA K Ot R07.9 CHEST PAIN, UNSPECIFIED 09/29/2019 NGOC JUSTICE, KAVITHA K Ot R55 SYNCOPE AND COLLAPSE 10/03/2019 NGOC JUSTICE, KAVITHA K Ot I10 ESSENTIAL (PRIMARY) HYPERTENSION 10/03/2019 NGOC JUSTICE, KAVITHA K Ot R06.02 SHORTNESS OF BREATH 10/03/2019 KAVITHA LIU Ot R07.9 CHEST PAIN, UNSPECIFIED 10/03/2019 NGOC JUSTICE, KAVITHA K Ot R55 SYNCOPE AND COLLAPSE 11/29/2019 JORDAN GARDINER, JANES Lincoln Ot J20.9 ACUTE BRONCHITIS, UNSPECIFIED 11/29/2019 JORDAN GARDINER, JANES Lincoln Ot J45.909 UNSPECIFIED ASTHMA, UNCOMPLICATED 11/29/2019 JORDAN GARDINER, JANES Lincoln Ot R05 COUGH 11/29/2019 JORDAN GARDINER, JANES Lincoln Ot R10.12 LEFT UPPER QUADRANT PAIN 11/29/2019 JORDAN GARDINER, JANES Lincoln Ot Z79.84 SHAPE CARVER (CURRENT) USE OF ORAL HYPOGLYC 11/29/2019 JANES ORTEGA MD Ot Z86.73 PRSNL HX OF TIA (TIA), AND CEREB INFRC W 12/03/2019 JANES ORTEGA MD Ot J20.9 ACUTE BRONCHITIS, UNSPECIFIED 12/03/2019 JANES ORTEGA MD Ot J45.909 UNSPECIFIED ASTHMA, UNCOMPLICATED 12/03/2019 JANES ORTEGA MD Ot R05 COUGH 12/03/2019 JANES ORTEGA MD Ot R10.12 LEFT UPPER QUADRANT PAIN 12/03/2019 JANES ORTEGA MD Ot Z79.84 RESIDENTIAL (CURRENT) USE OF ORAL HYPOGLYC 12/03/2019 JANES ORTEGA MD Ot Z86.73 PRSNL HX OF TIA (TIA), AND CEREB INFRC W 01/05/2020 JANES ORTEGA MD Ot J20.9 ACUTE BRONCHITIS, UNSPECIFIED 01/05/2020 JANES ORTEGA MD Ot J45.909 UNSPECIFIED ASTHMA, UNCOMPLICATED 01/05/2020 JANES ORTEGA MD Ot R05 COUGH 01/05/2020 JANES ORTEGA MD Ot R10.12 LEFT UPPER QUADRANT PAIN 01/05/2020 JANES ORTEGA MD Ot Z20.828 CONTACT W AND EXPOSURE TO OTH VIRAL COMM 01/05/2020 JANES ORTEGA MD Ot Z79.84 RESIDENTIAL (CURRENT) USE OF ORAL HYPOGLYC 01/05/2020 JANES ORTEGA MD Ot Z86.73 PRSNL HX OF TIA (TIA), AND CEREB INFRC W Procedures Code Description [place] [address] PSYC H PHARM MGMT 06/29/2012 52534 ROUT INE VENIPUNCTURE 11/25/[id number] GF R CALC (RESULT ONLY) 11/25/2013 58141 CMP 11/25/2013 74477 LIPI D PANEL 11/25/2013 00451 CBC 11/25/2013 94386 TSH 11/25/2013 Results Test Result Range Complete [...] 14:55 Hemoglobin A1c 5.0 % 4.8-5.6 Thyroid Nolan Profile - 12/19/16 14:55 TSH 1.030 uIU/mL [...] 7-25 CREATININE 1.09 mg/dL 0.60-1.35 eGFR NON-AFR. MOLDOVAN 88 mL/min/1.73m2 > OR = 60 eGFR [...] 7-25 CREATININE 1.11 mg/dL 0.60-1.35 eGFR NON-AFR. MOLDOVAN 86 mL/min/1.73m2 > OR = 60 eGFR [...] 0.0 10*3/uL 0.0-0.1 Comprehensive metabolic panel - 07/31/19 14:15 Serum or plasma sodium measurement (moles/volume) [...] platelet poor plasma (mass/volume) < ug/mL 0.00-0.49 Complete blood count (CBC) with automate d white blood cell (WBC) differential - 11/27/19 07:10 Blood leukocytes automated count (number/volume) 17.2 10*3/uL 4.3-11.0 Blood erythrocytes automated count (number/volume) 5.42 10*6/uL 4.35-5.85 Venous blood hemoglobin measurement (mass/volume) 16.1 g/dL 13.3-17.7 Blood hematocrit (volume fraction) 45 % 40-54 Automated erythrocyte mean corpuscular volume 82 [ foz_us] 80-99 Automated erythrocyte mean corpuscular h emoglobin (mass per erythrocyte) 30 pg 25-34 Automated erythrocyte mean corpuscular h emoglobin concentration measurement (mass/volume) 36 g/dL 32-36 Automated erythrocyte distribution width ratio 13. 9 % 10.0- 14.5 Automated blood platelet count (count/volume) 266 10*3/uL 130-400 Automated blood platelet mean volume measurement 10.0 [foz_us] 7.4-10.4 Automated blood neutrophils/100 leukocytes 53 % 42-75 Automated blood lymphocytes/100 leukocytes 38 % 12-44 Blood monocytes/100 leukocytes 8 % 0-12 Automated blood eosinophils/100 leukocytes 1 % 0-10 Automated blood basophils/100 leukocytes 1 % 0-10 Blood neutrophils automated count (number/volume) 9.2 10*3 1.8-7.8 Blood lymphocytes automated count (number/volume) 6.6 10*3 1.0-4.0 Blood monocytes automated count (number/volume) 1. 3 10*3 0.0-1.0 Automated eosinophil count 0.1 10*3/uL 0 .0-0.3 Automated blood basophil count (count/volume) 0.1 10*3/uL 0.0-0.1 Comprehensive metabolic panel - 11/27/19 07:10 Serum or plasma sodium measurement (moles/volume) 141 mmol/L 135-145 Serum or plasma potassium measurement (moles/volume) 3.5 mmol/L 3.6-5.0 Serum or plasma chloride measurement (moles/volume) 108 mmol/L 98-107 Carbon dioxide 20 mmol/L 21-32 Serum or plasma anion gap determination (moles/volume) 13 mmol/L 5-14 Serum or plasma urea nitrogen measurement (mass/volume ) 20 mg/dL 7-18 Serum or plasma creatinine measurement (mass/volume) 1.03 mg/dL 0.60-1.30 Serum or plasma urea nitrogen/creatinine mass ratio 19 NRG Serum or plasma creatinine measurement w ith calculation of estimated glomerular filtration rate > NRG Serum or plasma glucose measurement (mass/volume) 92 mg/dL 70-105 Serum or plasma calcium measurement (mass/volume) 9.2 mg/dL 8.5-10.1 Serum or plasma total bilirubin measurement (mass/volu me) 0.6 mg/dL 0.1-1.0 Serum or plasma alkaline phosphatase candice surement (enzymatic activity/volume) 41 U/L 40-136 Serum or plasma aspartate aminotransfera se measurement (enzymatic activity/volume) 31 U/L 5-34 Serum or plasma alanine aminotransferase measurement (enzymatic activity/volume) 39 U/L 0-55 Serum or plasma protein measurement (mass/volume) 7.3 g/dL 6.4-8.2 Serum or plasma albumin measurement (mass/volume) 4.4 g/dL 3.2-4.5 CALCIUM CORRECTED 8.9 mg/dL 8.5-10.1 Fibrin D-dimer FEU measurement in platel et poor plasma (mass/volume) - 11/27/19 07:10 Fibrin D-dimer FEU measurement in platelet poor plasma (mass/volume) < ug/mL 0.00-0.49 Influenza virus A and B antigen detectio n - 11/27/19 07:10 FLU RESULT NEGATIVE FOR INFLUENZA A AND B ANTIGENS BY IA NRG Serum ragweed IgE antibody assay - 11/26 07:10 Serum ragweed IgE antibody assay 207 U/L 125-220 PROCALCITONIN (PCT) - 11/27/19 07:10 PROCALCITONIN (PCT) 0.04 ng/mL <0.10 Manual absolute plasma cell count - 11/03 12/21 07:10 Blood monocytes/100 leukocytes 6 % NRG Manual blood segmented neutrophils/100 leukocytes 57 % NRG Manual blood lymphocytes/100 leukocytes 36 % NRG Manual eosinophils/100 leukocytes in nose 1 % NRG Blood erythrocyte morphology finding identification NORMAL NRG Serum or plasma lithium measurement (mol es/volume) - 11/27/19 07:10 BNP PT 40.0 pg/mL <100.0 Serum or plasma C reactive protein measu rement (mass/volume) - 11/27/19 07:10 Serum or plasma C reactive protein measurement (mass/v olume) 0.16 mg/dL 0.00-0.50 Coronavirus SARS-CoV-2 SO 2018 - 0 07:10 Coronavirus Ab [Units/volume] in Serum Negative Negative Streptococcus pyogenes antigen detection - 02/05/20 06:24 Streptococcus pyogenes antigen detection NEGATIVE NEGATIVE Encounters ACCT No. Visit Date/Time Discharge Status Pt. Type Provider Facility Loc./Unit Complaint [id number] 12/20/2016 12:09:00 Document Registration [id number] 01/12/2020 12:00:00 01/12/2020 23:59:5 9 CLS Outpatient [facility] [id number] 01/15/2019 14:40:00 Document Registration [id number] 10/07/2018 14:00:00 Document Registration [id number] 12/17/2017 08:20:00 Document Registration [id number] 10/07/2017 10:45:00 Document Registration [id number] 02/05/2020 06:21:00 07:29:00 DIS Emergency CELESTINE GARDINER, PALAK Rizzo [facility] ER CHEST TIGHTNESS [id number] 11/27/2019 06:33:00 09:01:00 DIS Outpatient JORDAN GARDINER, JANES Lincoln [facility] ER COUGH [id number] 09/27/2019 14:42:00 23:59:59 CLS Outpatient NGOC JUSTICE, MARIA DEL CARMEN Chacko [facility] CARD HYPERTENSIO N [id number] 08/23/2019 10:24:00 23:59:59 CLS Outpatient ZBIGNIEW VILLEGAS MD [facility] CARD HYPERTENSION [id number] 07/31/2019 12:29:00 15:16:00 DIS Outpatient JAEL RICE APRN [facility] ER LIGHT HEADED / DIZZY [id number] 02/13/2019 16:46:00 20:44:00 DIS Emergency JAEL RICE APRN [facility] ER SUICIDAL [id number] 04/25/2016 20:19:00 016 21:20:00 DIS Emergency JAEL RICE APRN [facility] ER CHEST PAIN [id number] 03/09/2016 21:16:00 016 22:15:00 DIS Emergency JAEL RICE APRN [facility] ER MIGRAINE/NAUSEA [id number] 08/21/2015 19:15:00 016 19:56:00 DIS Emergency JAEL RICE COMPLIANCE TESTING ANALYST [facility] ER R RIB AND BACK PAIN;SOA [id number] 07/10/2015 14:41:00 015 23:59:59 CLS Outpatient COLTHARP DO, CALVIN A [facility] QUICK [id number] 10/21/2013 06:50:00 014 08:49:00 DIS Emergency PINEDA GARDINER, SERGIO Chacko [facility] ER [id number] 09/28/2013 09:19:00 014 10:57:00 DIS Emergency JORDAN GARDINER, JANES Lincoln [facility] ER [id number] 01/01/2013 02:13:00 013 03:15:00 DIS Emergency ELISE GARDINER, HEIDI Greco [facility] ER [id number] 12/25/2012 12:32:00 013 14:45:00 DIS Emergency KARI GARDINER, GET R [facility] ER [id number] 10/21/2014 11:56:00 Document Registration [id number] 01/12/2011 10:52:00 Document Registration [id number] 09/28/2014 12:58:00 09/28/2014 23:59: 59 CLS Outpatient TARYN ROME [id number] 07/12/2014 08:44:00 07/12/2014 23:59: 59 CLS Outpatient JOSE BALES MD [id number] 01/31/2014 11:31:00 01/31/2014 23:59: 59 CLS Outpatient RODNEY ALVAREZ APRN [id number] 12/20/2013 13:54:00 12/20/2013 23:59: 59 CLS Outpatient RODNEY ALVAREZ APRN [id number] 11/25/2013 10:57:00 11/25/2013 23:59: 59 CLS Outpatient RODNEY ALVAREZ APRN [id number] 06/25/2013 09:50:00 06/25/2013 23:59: 59 CLS Outpatient RODNEY ALVAREZ APRN [id number] 03/29/2013 13:47:00 03/29/2013 23:59: 59 CLS Outpatient SAYRA HERRERA DO [id number] 06/24/2012 13:40:00 06/24/2012 23:59: 59 CLS Outpatient [id number] 06/24/2012 13:40:00 06/24/2012 23:59:5 9 CLS Outpatient
== END 2020-02-05 07:29 | disposition home or self-care (01) ==
LOC: EDUNIT# 06:19 → ER 06:21
DX: J00 Acute nasopharyngitis [common cold] (principal); Z86.73 Personal history of transient ischemic attack (TIA), and cerebral infarction without residual deficits; F41.9 Anxiety disorder, unspecified; F31.9 Bipolar disorder, unspecified; F60.9 Personality disorder, unspecified; J45.909 Unspecified asthma, uncomplicated; F17.290 Nicotine dependence, other tobacco product, uncomplicated
CPT/HCPCS: 87430; 99284

== ENCOUNTER 2022-11-04 18:09 | Emergency (ER) | payer MEDICAID ==
[~2022-11-04] VITALS: Ht 177.8 cm; Wt 89.8 kg
[~2022-11-04 18:09] MED LIST changes: +ALBU6.7H13; -ALBU6.7H8; +ALBU8.5H6 IH; -HYDR-83 PO; -RT-ALBUINH IH; +TOPI-241; -TOPI50TA13
[2022-11-04] MEDS ORDERED: NS IV 1000 ML 1,000 ML IV STA ×2 (18:26→20:15)
[2022-11-04] MEDS ORDERED: fentaNYL INJ 100 MCG/2 ML AMP IVP STA (18:26)
[2022-11-04] MEDS ORDERED: PANTOPRAZOLE 40 MG (PROTONIX) VIAL IV ONE (18:30)
[2022-11-04] MEDS ORDERED: ONDANSETRON 4 MG/2 ML (SDV) Z0FRAN IVP ONE (18:30)
--- NOTE | 2022-11-04 18:30 | ED Abdominal Pain ---
General Chief Complaint: Abdominal/GI Problems Stated Complaint: ABD PAIN Source of Information: Patient Exam Limitations: No Limitations History of Present Illness Date Seen by Provider: Nov 04, 2022 Time Seen by Provider: 18:28 Initial Comments Patient is a 37-year-old male who presents ED with upper abdominal pain. Pain started 6 hours ago. States he was getting his tires worked on his vehicle. Started having pain right before eating popcorn. Pain is generalized but worse in his upper abdomen. No radiating pain. States he has had some similar pain since last when he was diagnosed with H. pylori by a "fingerstick". Patient was placed on antibiotics which he cannot recall. Intermittent pain sin ce last after being diagnosed in the walk-in clinic. Vomited 8+ episodes nonbilious without hematemesis right before arrival. 8 episodes of watery diarrhea mucousy without any blood. No history of previous abdominal surgery. History of IBS. denies chest pain, cough or shortness of breath. Has been taken Tylenol for pain without much improvement. Denies history of EGD or colonoscopy. No history of cancer, fever, chills, body aches. Patient does appear pale. Patient denies excessive NSAID use, alcohol or drug use. Patient denies any urinary symptoms Allergies and Home Medications Allergies Coded Allergies: No Known Drug Allergies (Unverified , 12/19/08) Patient Home Medication List Home Medication List Reviewed: Yes Albuterol Sulfate (Proventil Hfa) 6.7 Gm Hfa.aer.ad, (Reported) Entered as Reported by: LUISA VELASCO on 02/13/19 1710 Albuterol Sulfate (Ventolin Hfa) 1 Puff Puff, 2 PUFF IH Q4H PRN for WHEEZING Prescribed by: JANES GOLD on 11/27/19 0831 Benzonatate (Tessalon Perles) 100 Mg Capsule, 200 MG PO TID PRN for COUGH Prescribed by: JANES GOLD on 11/27/19 0814 Hydrocodone/Acetaminophen (Hydrocodone-Acetamin 5-325 mg) 1 Each Tablet, 1 EACH PO Q4H PRN for COUGH Prescribed by: JANES GOLD on 11/27/19 0814 Loxapine Succinate (Loxapine) 10 Mg Capsule, (Reported) Entered as Reported by: LUISA VELASCO on 02/13/191709 Loxapine Succinate (Loxapine) 5 Mg Capsule, (Reported) Entered as Reported by: LUISA VELASCO on 02/13/191709 Lurasidone HCl (Latuda) 120 Mg Tablet, (Reported) Entered as Reported by: LUISA VELASCO on 02/13/191709 Meloxicam (Meloxicam) 15 Mg Tablet, (Reported) Entered as Reported by: LUISA VELASCO on 02/13/191709 Metformin HCl (Metformin HCl ER) 500 Mg Tab.er.24h, 500 MG PO BID, (Reported) Entered as Reported by: EMA CAMARA on 04/25/162055 Promethazine HCl (Promethazine Tablet) 25 Mg Tablet, 25 MG PO Q6H PRN for NAUSEA/VOMITING Prescribed by: RESHMA LI on 11/04/222208 Simvastatin (Simvastatin) 10 Mg Tablet, 10 MG PO HS, (Reported) Entered as Reported by: EMA CAMARA on 04/25/162055 Simvastatin (Simvastatin) 20 Mg Tablet, (Reported) Entered as Reported by: LUISA VELASCO on 02/13/191709 Topiramate (Topiramate) 50 Mg Tablet, (Reported) Entered as Reported by: LUISA VELASCO on 02/13/191709 Vilazodone Hydrochloride (Viibryd) 20 Mg Tablet, (Reported) Entered as Reported by: LUISA VELASCO on 02/13/191709 Vilazodone Hydrochloride (Viibryd) 10 Mg Tablet, (Reported) Entered as Reported by: LUISA VELASCO on 02/13/191709 [Latuda] , (Reported) Entered as Reported by: LUISA VELASCO on 02/13/191709 Review of Systems Review of Systems Constitutional: No chills, No diaphoresis; malaise, weakness EENTM: No Double Vision, No Eye Pain Respiratory: Denies Cough, Denies Orthopnea Cardiovascular: Denies Chest Pain Gastrointestinal: Abdominal Pain; Denies Blood Streaked Stools; Diarrhea, Nausea; Denies Rectal Bleeding; Vomiting Genitourinary: Denies Burning, Denies Discharge, Denies Drainage, Denies Frequency Past Nrngnqa-Vptzvh-Etbwsw Hx Immunizations Up To Date Tetanus Booster (TDap): Unknown PED Vaccines UTD: Yes Seasonal Allergies Seasonal Allergies: No Past Medical History Surgeries: Yes (appendectomy) Appendectomy, Orthopedic Respiratory: Yes ( CHILD) Asthma Currently Using CPAP: No Currently Using BIPAP: No Cardiac: No 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 oz. 90.357570sh; 38.00 BMI Method:Estimated General Appearance: WD/WN, mild distress HEENT: PERRL/EOMI, normal ENT inspection, TMs normal Neck: non-tender, full range of motion, supple, normal inspection Respiratory: chest non-tender, lungs clear, normal breath sounds, no respiratory distress, no accessory muscle use Cardiovascular: regular rate, rhythm, no edema, no gallop, no JVD, no murmur Gastrointestinal: normal bowel sounds, soft, no organomegaly, no pulsatile mass, tenderness (Generalized tenderness) Extremities: normal range of motion, non-tender, normal inspection, no pedal edema, no calf tenderness Back: normal inspection, no CVA tenderness, no vertebral tenderness Neurologic/Psychiatric: patch washer II-XII nml as tested, no motor/sensory deficits, alert, normal mood/affect, oriented x 3 Progress/Results/Core Measures Results/Orders Lab Results Laboratory Tests Test 11/04/22 18:26 11/04/22 19:24 Range/Units White Blood Count 20.1 H 4.3-11.0 10^3/uL Red Blood Count 5.92 H 4.30-5.52 10^6/uL Hemoglobin 17.8 H 13.3-17.7 g/dL Hematocrit 49 40-54 % Mean Corpuscular Volume 83 80-99 fL Mean Corpuscular Hemoglobin 30 25-34 pg Mean Corpuscular Hemoglobin Concent 36 32-36 g/dL Red Cell Distribution Width 13.5 10.0-14.5 % Platelet Count 274 130-400 10^3/uL Mean Platelet Volume 9.8 9.0-12.2 fL Immature Granulocyte % (Auto) 0 % Neutrophils (%) (Auto) 85 H 42-75 % Lymphocytes (%) (Auto) 9 L 12-44 % Monocytes (%) (Auto) 4 0-12 % Eosinophils (%) (Auto) 2 0-10 % Basophils (%) (Auto) 1 0-10 % Neutrophils # (Auto) 17.0 H 1.8-7.8 10^3/uL Lymphocytes # (Auto) 1.7 1.0-4.0 10^3/uL Monocytes # (Auto) 0.8 0.0-1.0 10^3/uL Eosinophils # (Auto) 0.3 0.0-0.3 10^3/uL Basophils # (Auto) 0.1 0.0-0.1 10^3/uL Immature Granulocyte # (Auto) 0.1 0.0-0.1 10^3/uL Neutrophils % (Manual) 83 % Lymphocytes % (Manual) 13 % Monocytes % (Manual) 3 % Eosinophils % (Manual) 1 % Blood Morphology Comment NORMAL Sodium Level 144 135-145 MMOL/L Potassium Level 4.1 3.6-5.0 MMOL/L Chloride Level 108 H 98-107 MMOL/L Carbon Dioxide Level 21 21-32 MMOL/L Anion Gap 15 H 5-14 MMOL/L Blood Urea Nitrogen 15 7-18 MG/DL Creatinine 1.30 0.60-1.30 MG/DL Estimat Glomerular Filtration Rate 72 BUN/Creatinine Ratio 12 Glucose Level 119 H 70-105 MG/DL Calcium Level 10.0 8.5-10.1 MG/DL Corrected Calcium 8.5-10.1 MG/DL Total Bilirubin 0.8 0.1-1.0 MG/DL Aspartate Amino Transf (AST/SGOT) 39 H 5-34 U/L Alanine Aminotransferase (ALT/SGPT) 53 0-55 U/L Alkaline Phosphatase 59 40-136 U/L Total Protein 7.8 6.4-8.2 GM/DL Albumin 4.8 H 3.2-4.5 GM/DL Lipase 25 8-78 U/L Urine Color DARK YELLOW Urine Clarity CLEAR Urine pH 8.5 5-9 Urine Specific [place] 1.010 L 1.016-1.022 Urine Protein 1+ H NEGATIVE Urine Glucose (UA) NEGATIVE NEGATIVE Urine Ketones 1+ H NEGATIVE Urine Nitrite NEGATIVE NEGATIVE Urine Bilirubin 1+ H NEGATIVE Urine Urobilinogen 0.2 < = 1.0 MG/DL Urine Leukocyte Esterase TRACE H NEGATIVE Urine RBC (Auto) NEGATIVE NEGATIVE Urine RBC NONE /HPF Urine WBC 0-2 /HPF Urine Squamous Epithelial Cells NONE /HPF Urine Crystals NONE /LPF Urine Bacteria FEW H /HPF Urine Casts NONE /LPF Urine Mucus LARGE H /LPF Urine Culture Indicated YES My Orders Orders - MARISA FLORENTINO Cbc With Automated Diff (11/04/22 18:26) Comprehensive Metabolic Panel (11/04/22 18:26) Lipase (11/04/22 18:26) Ns Iv 1000 Ml (Sodium Chloride 0.9%) (11/04/22 18:26) Ondansetron Injection (Zofran Injectio (11/04/22 18:30) Fentanyl Inj (Sublimaze Injection) (11/04/22 18:26) Ct Abdomen/Pelvis W (11/04/22 18:26) Ua Culture If Indicated (11/04/22 18:26) Pantoprazole Injection (Protonix Injecti (11/04/22 18:30) Manual Differential (11/04/22 18:26) Iohexol Injection (Omnipaque 350 Mg/Ml 1 (11/04/22 19:15) Ns (Ivpb) (Sodium Chloride 0.9% Ivpb Bag (11/04/22 19:15) Urine Culture (11/04/22 19:24) Ns Iv 1000 Ml (Sodium Chloride 0.9%) (11/04/22 20:15) Morphine Injection (Morphine Injection (11/04/22 20:15) Promethazine Injection (Phenergan Injec (11/04/22 21:00) Rx-Ondansetron Po (Rx-Zofran Po) (11/04/22 22:15) Medications Given in ED Vital Signs/I&O 11/04/22 11/04/22 18:19 22:31 Pulse 61 65 Resp 16 B/P (MAP) 144/98 (113) 130/85 Pulse Ox 98 97 O2 Delivery Room Air Room Air 11/05/22 00:00 Intake Total 2000 ml Balance 2000 ml Departure Communication (PCP) Patient with intermittent generalized abdominal discomfort with worsening upper abdominal pain since last or Friday. Patient was diagnosed with H. pylori and was placed on bismuth, metronidazole, tetracycline and a PPI. Patient has been taking antibiotics. Patient reports some increasing pain with eating. Several episodes of vomiting nonbilious without hematemesis and watery diarrhea mucousy without hematochezia today. Patient in mild distress on arrival and tearful. No recent antibiotic use or travels. History of IBS. Patient dry heaving on arrival. CBC, CMP, lipase, urinalysis, CT abdomen and pelvis was ordered. Patient was given a liter of fluid, Zofran to start with. Some improvement of the nausea with Zofran 4 mg. Patient was given fentanyl 50 mcg for the abdominal pain. No history of gastritis, GERD, peptic ulcer disease. Patient was given IV Protonix 40 mg secondary to location of pain. Patient continued having pain. Patient was given dose of 4 mg morphine with improvement. Continue to feel nauseous not able to drink so he was given 25 mg of Phenergan with near resolution of symptoms. He Was able to tolerate p.o. fluids. CBC showed white blood count of 20,000. Chemistry showed anion gap of 15, blood glucose 119 otherwise unremarkable. Slightly dehydrated. Urinalysis positive for ketones, proteins, mucus and mild bacteria. Patient denies of any urinary symptoms. CT abdomen pelvis concerning for enterocolitis. Likely viral however due to recent diagnosis of H. pylori I contacted Dr. Jones general surgery of the results. Patient likely has a superimposed GI infection besides the H. pylori likely viral which has resulted in the vomiting and diarrhea. He states as long as patient is feeling better and asymptomatic may follow-up in the office tomorrow. This was the plan of action with the patient. Due to being afebrile, no bloody stools without severe abdominal tenderness no secondary antibiotic was started for any other bacterial etiology. Did attempt to get a stool sample but patient did not have a bowel movement. Recommend lenny lubin with his antibiotics as prescribed for H pylori. If continued diarrhea, I recommend stool sample. No history inflammatory bowel disease such as Crohn's. Patient pain improved. Continue with your PPI and antibiotics. Will discharge with Phenergan 25mg and was given Zofran 4mg take-home pack. If any worsening symptoms return back to ED. discussed clear liquid diet for the next 2 to 3 days and increase to more of a bland diet. If any worsening severe abdominal pain, fever return back to ED. provided number and discharge instructions for Dr. Jones Impression Primary Impression: Abdominal pain Additional Impression: Vomiting and diarrhea Disposition: HOME, SELF-CARE Condition: Stable Departure-Patient Inst. Decision time for Depature: 22:07 Referrals: [facility] [place] (PCP/Family) Primary Care Physician GLENN JONES DO Patient Instructions: Nausea and Vomiting, Adult (DC) Scripts Promethazine HCl (Promethazine Tablet) 25 Mg Tablet 25 MG PO Q6H PRN for NAUSEA/VOMITING, #6 TAB Prov: MARISA FLORENTINO 11/04/22 Work/School Note: Work Release Form Date Seen in the Emergency Department: Nov 04, 2022 Return to Work: Nov 07, 2022 MARISA FLORENTINO Nov 04, 2022 18:30
[2022-11-04 18:33] LABS: BASOPHILS # (AUTO) 0.1 10^3/uL (0.0-0.1); BASOPHILS % (AUTO) 1 % (0-10); EOSINOPHILS # (AUTO) 0.3 10^3/uL (0.0-0.3); EOSINOPHILS % (AUTO) 2 % (0-10); HEMATOCRIT 49 % (40-54); HEMOGLOBIN 17.8 g/dL (13.3-17.7); LYMPHOCYTES # (AUTO) 1.7 10^3/uL (1.0-4.0); LYMPHOCYTES % (AUTO) 9 % (12-44); MEAN CORPUSCULAR HEMOGLOBIN 30 pg (25-34); MEAN CORPUSCULAR HGB CONC 36 g/dL (32-36); MEAN CORPUSCULAR VOLUME 83 fL (80-99); MEAN PLATELET VOLUME 9.8 fL (9.0-12.2); MONOCYTES # (AUTO) 0.8 10^3/uL (0.0-1.0); MONOCYTES % (AUTO) 4 % (0-12); NEUTROPHILS % (AUTO) 85 % (42-75); PLATELET COUNT 274 10^3/uL (130-400); WHITE BLOOD COUNT 20.1 10^3/uL (4.3-11.0)
[2022-11-04 18:40] LABS: ALBUMIN 4.8 GM/DL (3.2-4.5)
[2022-11-04 18:41] LABS: CHLORIDE 108 MMOL/L (98-107); POTASSIUM 4.1 MMOL/L (3.6-5.0); SODIUM 144 MMOL/L (135-145)
[2022-11-04 18:43] LABS: GLUCOSE 119 MG/DL (70-105); TOTAL PROTEIN 7.8 GM/DL (6.4-8.2)
[2022-11-04 18:44] LABS: CARBON DIOXIDE 21 MMOL/L (21-32)
[2022-11-04 18:45] LABS: BILIRUBIN,TOTAL 0.8 MG/DL (0.1-1.0)
[2022-11-04 18:46] LABS: ALKALINE PHOSPHATASE 59 U/L (40-136); GFR ESTIMATED 72
[2022-11-04 18:47] LABS: BUN/CREATININE RATIO 12
[2022-11-04 18:49] LABS: ALANINE AMINOTRANSFERASE 53 U/L (0-55)
[2022-11-04 18:50] LABS: LIPASE 25 U/L (8-78)
[2022-11-04 19:02] LABS: EOSINOPHILS % (MANUAL) 1 %; LYMPHOCYTES % (MANUAL) 13 %; MONOCYTES % (MANUAL) 3 %; NEUTROPHILS % (MANUAL) 83 %; RBC MORPH NORMAL
[2022-11-04] MEDS ORDERED: NS 100 ML (IVPB) BAG IV ONE (19:15)
[2022-11-04] MEDS ORDERED: IOHEXOL 350 MG/ML 100 ML (OMNIPAQUE 350) VIAL IV ONE (19:15)
[2022-11-04 19:29] LABS: CLARITY,URINE CLEAR; COLOR,URINE DARK YELLOW; GLUCOSE, URINE (UA) NEGATIVE (NEGATIVE); KETONES,URINE 1+ (NEGATIVE); LEUKOCYTE ESTERASE ,URINE TRACE (NEGATIVE); NITRITE,URINE NEGATIVE (NEGATIVE); PH,URINE 8.5 (5-9); PROTEIN,URINE 1+ (NEGATIVE)
[2022-11-04 19:38] LABS: BACTERIA,URINE FEW /HPF; BILIRUBIN,URINE 1+ (NEGATIVE); WBC,URINE 0-2 /HPF
--- NOTE | 2022-11-04 19:44 | Diagnostic Imaging Report ---
PROCEDURE: CT abdomen and pelvis with contrast. TECHNIQUE: Multiple contiguous axial images were obtained through the abdomen and pelvis after administration of intravenous contrast. Auto Exposure Controls were utilized during the CT exam to meet ALARA standards for radiation dose reduction. All CT scans use one or more of the following dose optimizing techniques: automated exposure control, MA and/or KvP adjustment based on patient size and exam type or iterative reconstruction. INDICATION: Abdominal pain. COMPARISON: None available. FINDINGS: Visualized lung bases are clear. The liver and spleen are unremarkable. The adrenal glands are unremarkable. The stomach is distended with fluid. The gallbladder is unremarkable. 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 No evidence of hydroureteronephrosis. No aneurysmal dilatation of the abdominal aorta. What is felt to relate to the stump of the appendix is unremarkable. The urinary bladder is unremarkable. Scattered regions of mural thickening are noted involving small bowel within left abdomen as well as the transverse colon. No pneumatosis. No bowel obstruction. Minimal colonic diverticulosis without CT evidence of diverticulitis. No significant adenopathy, free air, or free fluid within the abdomen or pelvis. No acute osseous abnormality. IMPRESSION: Mural thickening involving portions of the small bowel and colon, related to underlying enterocolitis versus poor distention. No evidence of bowel obstruction. Horseshoe kidney is incidentally noted without hydronephrosis. Minimal colonic diverticulosis without CT evidence of diverticulitis. Dictated by: Dictated on workstation # [id number]
[2022-11-04] MEDS ORDERED: morphine INJ 10 MG/ML 1ML (SYR OR VIAL) IVP ONE (20:15)
[2022-11-04] MEDS ORDERED: PROMETHAZINE INJ 25 MG/ML (PHENERGAN) AMP IVP ONE (21:00)
[2022-11-04] MEDS ORDERED: PROM25TA14 PO (22:09)
[2022-11-04] MEDS ORDERED: RX-ONDANSETRON 4 MG ODT (ZOFRAN) PPK #4 PO ONE (22:15)
[2022-11-04 22:31] VITALS: BP 130/85
== END 2022-11-04 22:31 | disposition home or self-care (01) ==
LOC: EDUNIT# 18:09 → ER 18:11
DX: R10.84 Generalized abdominal pain (principal); R11.2 Nausea with vomiting, unspecified; R19.7 Diarrhea, unspecified; B96.81 Helicobacter pylori [H. pylori] as the cause of diseases classified elsewhere; Z90.49 Acquired absence of other specified parts of digestive tract; Z87.19 Personal history of other diseases of the digestive system
CPT/HCPCS: 36415; 74177; 80053; 81000; 83690; 85007; 85027; 87088